=== PATIENT | female | born 1980 | race Caucasian/White ===

== ENCOUNTER 2016-09-12 19:18 | Emergency (ER) | payer MEDICAID ==
[~2016-09-12] VITALS: Ht 157.5 cm; Wt 76.5 kg
[~2016-09-12 19:18] MED LIST: DENIES; [UNRECOGNIZED DRUG - REMARK]
[2016-09-12 19:30] VITALS: Ht 157.5 cm; Wt 76.5 kg
--- NOTE | 2016-09-12 20:47 | RADRPT ---
PROCEDURE: US Lower extremity Venous. CLINICAL INDICATION: bilateral leg swelling TECHNIQUE: Multiple sonographic images of the bilateral lower extremity deep venous system was obt ained utilizing grayscale, color-flow, compressive sonography and doppler imaging with augmentation. The images were reviewed on a PACS workstation. COMPARISON: None. FINDINGS: There is normal compressibility and flow within the bilateral common femoral, deep femoral, superfic ial femoral and popliteal veins. The deep veins the calf were incompletely visualized. IMPRESSION: No sonographic evidence for deep venous thrombosis in the bilateral lower extremities. Physician Lay Date Time Electronically viewed and signed by Physician Lay on 09/12/2016 20:47 ML/
[2016-09-12 21:17] LABS: ADD UMIC YES; URINE BILIRUBIN (Dip) NEGATIVE (NEGATIVE); URINE BLOOD (Dip) 1+ (NEGATIVE); URINE COLOR LT. YELLOW (YELLOW); URINE GLUCOSE (Dip) >=1000 % (NEGATIVE); URINE KETONES (Dip) NEGATIVE (NEGATIVE); URINE LEUKOCYTE ESTERASE (Dip) NEGATIVE (NEGATIVE); URINE NITRITE (Dip) NEGATIVE (NEGATIVE); URINE TOTAL PROTEIN (Dip) 2+ (NEGATIVE); URINE UROBILINOGEN (Dip) 0.2 E.U./dL (0.1-1.0)
[2016-09-12 21:18] LABS: ADD SCAN DIFF NO
[2016-09-12 21:20] LABS: BASOPHIL # 0.1 10^3/ul (0.0-0.1); BASOPHILS % 0.5 % (0.0-2.0); EOSINOPHILS # 0.2 10^3/ul (0.0-0.5); EOSINOPHILS % 2.3 % (0.0-7.0); HEMATOCRIT 32.5 % (37.0-47.0); HEMOGLOBIN 11.2 g/dl (12.0-16.0); LYMPHOCYTES # 2.1 10^3/ul (0.8-2.9); LYMPHOCYTES % 20.1 % (15.0-51.0); MEAN CORPUSCULAR HEMOGLOBIN 30.1 pg (29.0-33.0); MEAN CORPUSCULAR HGB CONC 34.5 g/dl (32.0-37.0); MEAN CORPUSCULAR VOLUME 87.4 fl (82.0-101.0); MEAN PLATELET VOLUME 10.9 fl (7.4-10.4); MONOCYTE # 0.6 10^3/ul (0.3-0.9); MONOCYTES % 5.9 % (0.0-11.0); NEUTROPHIL # 7.5 10^3/ul (1.6-7.5); NEUTROPHILS % 70.9 % (39.0-77.0); PLATELET COUNT 355 10^3/UL (140-415); RED BLOOD COUNT 3.72 10^6/ul (4.20-5.40); WHITE BLOOD COUNT 10.6 10^3/ul (4.8-10.8)
[2016-09-12 21:32] LABS: BACTERIA,URINE FEW; SQUAMOUS EPITHELIAL CELL,UR FEW; URINE RBCS 0-2 /HPF (0)
[2016-09-12 21:45] LABS: CALCIUM 8.5 mg/dl (8.4-10.2); CREATININE 1.59 mg/dl (0.44-1.00); POTASSIUM 4.4 mmol/L (3.5-5.1)
[2016-09-12] MEDS ORDERED: ACETAMINOPHEN 500 MG TAB PO STA (22:11)
[2016-09-12] MEDS ORDERED: AZITHROMYCIN 250 MG TAB PO ONE (23:00)
[2016-09-12] MEDS ORDERED: CEFTRIAXONE 250 MG INJ IM ONE (23:00)
[2016-09-12] MEDS ORDERED: LIDOCAINE 1% (MDV) 20 ML INJ SC ONE (23:00)
[2016-09-12] MEDS ORDERED: ACET500C5 PO (23:21)
[2016-09-13 00:08] VITALS: BP 128/72; PULSE 88; RESP 16
--- NOTE | 2016-09-13 03:29 | ERD ---
ER Documentation Chief Complaint Date/Time DATE: 09/13/16 TIME: 03:23 Chief Complaint PAIN AND SWELLING IN BOTH LEGS/FEET X 3 WEEKS. FOUL VAG ODOR HPI Patient is a 35-year-old female with a past medical history of diabetes who presents the emergency department bilateral lower leg pain and swelling 3 weeks. 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 Patient denies any recent falls or trauma. Patient denies any recent travel, recent surgeries or OCP use. Patient denies any fevers, chills, chest pain, shortness of breath, nausea, vomiting or loss of consciousness. She also reports concerns of foul vaginal odor and discharge. Patient states her last 3 weeks she has had increased yellow discharge. Patient is unsure if she was exposed to any STDs. Patient states that she is unsure of her is currently sexually active with other individuals. Patient is requesting to be treated for STDs at this time. Patient denies any pelvic pain or vaginal bleeding. Last menstrual period was . ROS All systems reviewed and are negative except as per history of present illness. Medications Home Meds Active Scripts Acetaminophen* (Tylophen*) 500 Mg Capsule, 1 CAP PO Q6H Y for PAIN AND OR ELEVATED TEMP, #20 CAP Prov:DEBBY TOVAR PA-C 09/12/16 Reported Medications [Denies] No Conflict Check 05/15/12 [Unknown Dm Meds] No Conflict Check 06/17/10 Allergies Allergies: Coded Allergies: No Known Drug Allergies (Verified Allergy, Mild, 05/15/12) PMhx/Soc History of Surgery: No Anesthesia Reaction: No Hx Neurological Disorder: No Hx Respiratory Disorders: No Hx Cardiac Disorders: No Hx Psychiatric Problems: No Hx Miscellaneous Medical Probl: Yes (dm) Hx Alcohol Use: No Hx Substance Use: No Hx Tobacco Use: No Smoking Status: Never smoker Physical Exam Vitals Vital Signs Date Time Temp Pulse Resp B/P Pulse Ox O2 Delivery O2 Flow Rate FiO2 09/13/16 00:08 88 16 128/72 98 Room Air 09/12/16 19:30 96.8 108 18 127/72 98 Physical Exam GENERAL: Well-developed, well-nourished female. Appears in no acute distress. HEAD: Normocephalic, atraumatic. EYES: Pupils are equally reactive bilaterally. EOMs grossly intact. No conjunctival erythema. ENT: Moist mucous membranes. No uvula deviation. No kissing tonsils. NECK: Supple. No meningismus. Normal range of motion of the neck. LUNG: Clear to auscultation bilaterally. No rhonchi, wheezing, rales or coarse breath sounds. HEART: Regular rate and rhythm. No murmurs, rubs or gallops. ABDOMEN: No scars, ecchymosis or rashes noted. Soft, nontender, and nondistended. Positive bowel sounds in all four quadrants. No rebound tenderness , no guarding. (-) McBurney's point tenderness. No CVA tenderness. BACK: No midline tenderness. EXTREMITIES: Equal pulses bilaterally. No peripheral clubbing, cyanosis or edema. 1+ pitting edema noted on bilateral lower extremities. Venous discolorations on patient's bilateral lower extremities. Right 2nd toe amputated. NEUROLOGIC: Alert and oriented. Moving all four extremities without any difficulty. Normal speech. Steady gait. SKIN: Normal color. Warm and dry. No rashes or lesions. s. Result Diagram: 09/12/16210909/12/162109 Results 24 hrs Laboratory Tests Test 09/12/16 20:55 09/12/16 21:00 09/12/16 21:10 Urine Color LT. YELLOW Urine Clarity CLEAR Urine pH 6.0 Urine Specific [place] 1.010 Urine Ketones NEGATIVE Urine Nitrite NEGATIVE Urine Bilirubin NEGATIVE Urine Urobilinogen 0.2 E.U./dL Urine Leukocyte Esterase NEGATIVE Urine Microscopic RBC 0-2/HPF Urine Microscopic WBC 0-2/HPF Urine Squamous Epithelial Cells FEW Urine Bacteria FEW Urine Hemoglobin 1+ Urine Glucose >=1000% Urine Total Protein 2+ Bedside Glucose 399mg/dL White Blood Count 10.610^3/ul Red Blood Count 3.7210^6/ul Hemoglobin 11.2g/dl Hematocrit 32.5% Mean Corpuscular Volume 87.4fl Mean Corpuscular Hemoglobin 30.1pg Mean Corpuscular Hemoglobin Concent 34.5g/dl Red Cell Distribution Width 13.0% Platelet Count 75981^3/UL Mean Platelet Volume 10.9fl Neutrophils % 70.9% Lymphocytes % 20.1% Monocytes % 5.9% Eosinophils % 2.3% Basophils % 0.5% Nucleated Red Blood Cells % 0.0/100WBC Neutrophils # 7.510^3/ul Lymphocytes # 2.110^3/ul Monocytes # 0.610^3/ul Eosinophils # 0.210^3/ul Basophils # 0.110^3/ul Nucleated Red Blood Cells # 0.010^3/ul Sodium Level 135mmol/L Potassium Level 4.4mmol/L Chloride Level 102mmol/L Carbon Dioxide Level 27mmol/L Anion Gap 10 Blood Urea Nitrogen 23mg/dl Creatinine 1.59mg/dl Glucose Level 399mg/dl Calcium Level 8.5mg/dl B-Type Natriuretic Peptide 168PG/ML Current Medications Medications (Trade) Dose Ordered Sig/Jaime Route PRN Reason Start Time Stop Time Status Last Admin Dose Admin Acetaminophen (Tylenol Tab) 500 mg ONCE STAT PO 09/12/16 22:11 09/12/16 22:12 DC 09/12/16 22:16 Ceftriaxone Sodium (Rocephin) 250 mg ONCE ONCE IM 09/12/16 23:00 09/12/16 23:01 DC 09/12/16 23:11 Lidocaine (Xylocaine 1% (Mdv) 20 ml) 20 ml ONCE ONCE SC 09/12/16 23:00 09/12/16 23:01 DC 09/12/16 23:11 Azithromycin (Zithromax) 1,000 mg ONCE ONCE PO 09/12/16 23:00 09/12/16 23:01 DC 09/12/16 23:11 Procedures/MDM ED COURSE: The patient was stable throughout ED course. I kept the patient and/or family informed of laboratory and diagnostic imaging results throughout the ED course. DIAGNOSTIC IMAGING: Read by radiologist. DIAGNOSTIC IMAGING REPORT Patient: OLIVIER CASON : 1980 Age: 35 Sex: F MR #: [id number] DOS: 09/12/162016 Ordering MD: DEBBY TOVAR PA-C Location: [facility] Room/Bed: PROCEDURE: US Lower extremity Venous. CLINICAL INDICATION: bilateral leg swelling TECHNIQUE: Multiple sonographic images of the bilateral lower extremity deep venous system was obtained utilizing grayscale, color-flow, compressive sonography and doppler imaging with augmentation. The images were reviewed on a PACS workstation. COMPARISON: None. FINDINGS: There is normal compressibility and flow within the bilateral common femoral, deep femoral, superficial femoral and popliteal veins. The deep veins the calf were incompletely visualized. IMPRESSION: No sonographic evidence for deep venous thrombosis in the bilateral lower extremities. Physician Lay Date Time Electronically viewed and signed by Physician Lay on 09/12/2016 20 :47 ML/ CC: DEBBY TOVAR PA-C MEDICATIONS GIVEN: Tylenol, Rocephin, Azithromycin Patient tolerated medication well with no adverse reactions. Patient reported improvement in pain. MEDICAL DECISION MAKING: Patient is a 35-year-old female presents bilateral lower extremity swelling and concerns of increased vaginal discharge and odor.. Vital signs were reviewed. Patient is afebrile. Patient was not hypoxic. Patient was hemodynamically stable. CBC showed no evidence of systemic infection or severe anemia. BMP showed glucose of 399. Patient did not have an anion gap, no ketones noted in urine. Patient is not in DKA at this time time. Patients Cr noted to 1.59 and BUN noted to be 23. BNP was also elevated at 168. UA showed no evidence of acute infection or hematuria, however >1000 glucose noted. Doppler US was negative for bilateral DVT. I discussed the patients lab findings with my supervising physician, Dr. Wolff. Patients elevated Cr and BUN, likely due to poorly controlled diabetes. Patient does not require admission at this time for acute kidney injury given that patient is producing urine and has a history of DM. At this time, patients presentation is most consistent with kidney injury, leg swelling and concerns of STD exposure. Low suspicion for CHF, DVT, PE, DKA, HONK. Patient will also be empirically treated for STDs at this time. Low suspicion for , ectopic , PID or tuboovarian abscess at this time. PRESCRIPTION: Tylenol DISCHARGE: At this time, patient is stable for discharge and outpatient management. Patient given a copy of all imaging and blood work obtained today. Patient advised to follow up with her PCP for better management of her blood sugars and for possible adjustment to her medication. I have instructed the patient to follow-up with his/her primary care physician in 1-2 days. I have discussed with the patient the possibility of needing to see a specialist for further workup and imaging studies if symptoms persist. I have instructed the patient to promptly return to the ER for any new or worsening symptoms including increased pain, fever, nausea, vomiting, weakness or LOC. The patient and/or family expressed understanding of and agreement with this plan. All questions were answered. Home care instructions were provided. Patients random blood sugar level was elevated (>140), but appears stable without evidence of DKA or end organ failure. I had discussion with the patient about the risk of diabetes. I have advised the patient to follow up with his/her primary care physician for outpatient monitoring and treatment for elevated blood sugar levels in 2-3 days. I have instructed the patient to return to the ER for any new or worsening symptoms including chest pain, shortness of breath, headache, confusion, abdominal pain, nausea, vomiting, weakness or LOC. Departure Diagnosis: Primary Impression: Localized swelling of both lower legs Additional Impressions: Possible exposure to STD Kidney injury Poor compliance with medication Condition: Stable Patient Instructions: Diabetes and Kidney Disease Referrals: TONO SMART (PCP) Additional Instructions: Call your primary care doctor TOMORROW for an appointment during the next 1-2 days.See the doctor sooner or return here if your condition worsens before your appointment time. Follow up with her primary care physician for your leg swelling. Follow-up with your primary care physician for better management of your diabetes and kidney function. Advise your to get tested for STDs. DEBBY TOVAR PA-C Sep 13, 2016 03:29
== END 2016-09-13 00:09 | disposition home or self-care (01) ==
LOC: FTE 19:18
DX: M79.89 Other specified soft tissue disorders (principal); N17.9 Acute kidney failure, unspecified; E11.9 Type 2 diabetes mellitus without complications; Z91.14 Patient's other noncompliance with medication regimen
CPT/HCPCS: 36415; 80048; 81001; 82962; 83880; 85025; 87591; 93970; 96372; J0696; Z7502; Z7610

== ENCOUNTER 2017-01-01 20:34 | Inpatient (IN) | payer MEDICAID ==
[~2017-01-01] VITALS: Ht 160 cm; Wt 75.8 kg
[~2017-01-01 20:34] MED LIST changes: +ACET500C5 PO
--- NOTE | 2017-01-01 21:14 | ERD ---
ER Documentation Chief Complaint Date/Time DATE: 01/01/17 TIME: 21:13 Chief Complaint BILAT FOOT PAIN, VERY DIRTY W/OUT SHOES, ARGUMENT WITH SPOUSE, ANXIETY HPI 2 day hx low abd pain, w/o n/v or fever or dysuria, denies back pain , pt reports chills, HX of DM ROS All systems reviewed and are negative except as per history of present illness. Medications Home Meds Active Scripts Acetaminophen* (Tylophen*) 500 Mg Capsule, 1 CAP PO Q6H Y for PAIN AND OR ELEVATED TEMP, #20 CAP Prov:DEBBY TOVAR PA-C 09/12/16 Reported Medications [Denies] No Conflict Check 05/15/12 [Unknown Dm Meds] No Conflict Check 06/17/10 Allergies Allergies: Coded Allergies: No Known Drug Allergies (Verified Allergy, Mild, 05/15/12) PMhx/Soc History of Surgery: Yes (Thigh Surgery,) Anesthesia Reaction: No Hx Neurological Disorder: Yes (Neuropathy) Hx Respiratory Disorders: No Hx Cardiac Disorders: Yes (HTN) Hx Psychiatric Problems: No Hx Miscellaneous Medical Probl: Yes (DM) Hx Alcohol Use: No Hx Substance Use: No Hx Tobacco Use: No Smoking Status: Never smoker Physical Exam Vitals Vital Signs Date Time Temp Pulse Resp B/P Pulse Ox O2 Delivery O2 Flow Rate FiO2 01/01/17 20:37 97.6 100 18 171/97 100 Physical Exam Const: [] Head: Atraumatic Eyes: Normal Conjunctiva ENT: Normal External Ears, Nose and Mouth. Neck: Full range of motion..~ No meningismus. Resp: Clear to auscultation bilaterally Cardio: Regular rate and rhythm, no murmurs Abd: Soft, non tender, non distended. Normal bowel sounds Skin: No petechiae or rashes Back: No midline or flank tenderness Ext: No cyanosis, or edema Neur: Awake and alert Psych: Normal Mood and Affect Result Diagram: 01/01/17212901/01/172129 Results 24 hrs Laboratory Tests Test 01/01/17 21:30 White Blood Count 9.310^3/ul Red Blood Count 4.2710^6/ul Hemoglobin 12.8g/dl Hematocrit 38.5% Mean Corpuscular Volume 90.2fl Mean Corpuscular Hemoglobin 30.0pg Mean Corpuscular Hemoglobin Concent 33.2g/dl Red Cell Distribution Width 14.9% Platelet Count 29237^3/UL Mean Platelet Volume 11.1fl Neutrophils % 62.0% Lymphocytes % 28.5% Monocytes % 6.2% Eosinophils % 2.3% Basophils % 0.5% Nucleated Red Blood Cells % 0.0/100WBC Neutrophils # 5.810^3/ul Lymphocytes # 2.710^3/ul Monocytes # 0.610^3/ul Eosinophils # 0.210^3/ul Basophils # 0.110^3/ul Nucleated Red Blood Cells # 0.010^3/ul Urine Color COLORLESS Urine Clarity CLEAR Urine pH 7.0 Urine Specific [place] 1.012 Urine Ketones NEGATIVEmg/dL Urine Nitrite NEGATIVEmg/dL Urine Bilirubin NEGATIVEmg/dL Urine Urobilinogen NEGATIVEmg/dL Urine Leukocyte Esterase NEGATIVELeu/ul Urine Microscopic RBC 6/HPF Urine Microscopic WBC 2/HPF Urine Squamous Epithelial Cells FEW/HPF Urine Hemoglobin 1+mg/dL Urine Glucose 3+mg/dL Urine Total Protein 2+mg/dl Sodium Level 135mmol/L Potassium Level 4.4mmol/L Chloride Level 104mmol/L Carbon Dioxide Level 23mmol/L Anion Gap 12 Blood Urea Nitrogen 20mg/dl Creatinine 0.96mg/dl Glucose Level 325mg/dl Calcium Level 8.6mg/dl Total Bilirubin 0.1mg/dl Direct Bilirubin 0.00mg/dl Indirect Bilirubin 0.1mg/dl Aspartate Amino Transf (AST/SGOT) 31IU/L Alanine Aminotransferase (ALT/SGPT) 16IU/L Alkaline Phosphatase 143IU/L Total Protein 8.0g/dl Albumin 3.7g/dl Globulin 4.30g/dl Albumin/Globulin Ratio 0.86 Lipase 185U/L Current Medications Medications (Trade) Dose Ordered Sig/Jaime Route PRN Reason Start Time Stop Time Status Last Admin Dose Admin Sodium Chloride (NS) 1,000 ml @ 1,000 mls/hr Q1H ONCE IV 01/01/17 21:30 01/01/17 22:29 DC 01/01/17 21:29 Acetaminophen/ Hydrocodone Bitart (Boelus (5/325)) 1 tab ONCE ONCE PO 01/01/17 21:30 01/01/17 21:31 DC 01/01/17 21:28 Morphine Sulfate (morphine) 4 mg ONCE STAT IV 01/01/17 23:01 01/01/17 23:02 UNV Procedures/MDM PROCEDURE: CT ABDOMEN AND PELVIS WITHOUT CONTRAST: CLINICAL INDICATION: 36 years of age, female , abdominal pain. COMPARISON: None available. TECHNIQUE: CT of the abdomen and pelvis was performed without intravenous contrast. Oral contrast was not administered prior to the examination. Coronal and sagittal reformatted images were obtained from the axial source images. Images were reviewed on a high-resolution PACS workstation. Dose information: Based on a 32 cm phantom, the estimated radiation dose ( CTDIvol mGy) for each series in this exam is 12.3. The estimated cumulative dose (DLP mGy-cm) is 726. One or more of the following dose reduction techniques were used: - Automated exposure control. - Adjustment of the mA and/or kV according to patient size. - Use of iterative reconstruction technique. FINDINGS: In the absence of intravenous contrast, the study constitutes a limited assessment of the solid organs, bowel and vessels. LUNG BASES: Normal noncontrast appearance. ABDOMEN/PELVIS: Liver: Normal noncontrast appearance. Gallbladder: Normal noncontrast appearance. Bile ducts: No intrahepatic or extrahepatic biliary duct dilatation. Spleen: Normal noncontrast appearance. Pancreas: Normal noncontrast appearance. Adrenal glands: Normal noncontrast appearance. Kidneys and ureters: Kidneys are normal size. There is mild bilateral hydronephrosis and hydroureter. Negative for ureteral calculi. Aorta and IVC: Minimal atherosclerotic calcification aorta. Negative for abdominal aortic aneurysm. There are grafts in bilateral common femoral arteries. There is a right femoral bypass graft that is incompletely imaged. There is also a graft in the right superficial femoral artery. There is a graft in the left superficial femoral artery that is incompletely imaged. This graft is kinked at its origin with focal narrowing. There is postsurgical stranding in the left greater than right groins. Lymph nodes: Normal noncontrast appearance. Gastrointestinal tract: The stomach is moderately distended with semisolid material that may be from a recent meal. There is a large amount of formed stool in the entire colon with sparing of the sigmoid colon and rectum. Bowel loops are otherwise decompressed. Appendix: Normal Bladder: Bladder is partially filled. There is mild wall thickening and there is intraluminal gas that may be due to recent catheterization or infection. Pelvic Organs: The uterus and adnexa are unremarkable. Prominence of the left adnexa is within normal limits in a patient of this age. Peritoneal cavity: No free fluid or free intraperitoneal air. Abdominal wall: Small fat containing umbilical hernia. BONES: Musculoskeletal: No suspicious bone lesions. IMPRESSION: 1. Gas within the urinary bladder may be from recent catheterization. Recommend clinical correlation. In the absence of instrumentation, gas would be concerning for infection. There is thickening of the wall of the urinary bladder. Recommend correlation with urinalysis to evaluate for potential cystitis. 2. Nonspecific mild bilateral hydronephrosis and hydroureter without an obstructing calculus. Recommend correlation with renal function. 3. Large amount of formed stool in the colon with sparing of the rectum and sigmoid colon may indicate constipation. 4. Stomach is distended with semisolid material that may be from a recent meal. If there is concern for gastroparesis, suggestive of a nuclear medicine emptying study. 5. Vascular surgery in bilateral lower extremities with grafts as described. There is focal kinking of the origin of the left superficial femoral artery graft with stenosis. Recommend clinical correlation for signs of left leg claudication. Electronically viewed and signed by Filippo Vazquez Physician on 01/01/2017 22: 30 36-year-old [place]ian-speaking female presents to emergency department with 2 day history of low pelvic pain. Patient is a diabetic, denies nausea, vomiting, fever, patient it is cold chills, and physical exam patient has right lower, pelvic, and left lower quadrant tenderness. Left CVA tenderness with a normal heart rate and temperature. Emergency room course includes a liter of normal saline laboratory testing and a CAT scan of abdomen and pelvis without contrast. Laboratory findings as follow, no leukocytosis or evidence of acute blood loss or anemia. BUN and creatinine without evidence of acute renal failure, no evidence of hepatitis or pancreatitis, glucose elevated at 325. Urinalysis with elevated protein, glucose, and hemoglobin, negative for nitrates , and leukocytosis, urine will be sent for culture and sensitivity, CAT scan with radiologist's impression as follows; gas within the urinary bladder which may be from recent catheterization recommended clinical correction in the absence of instrumentation. Gas will be concerning for infection there is thickening of the wall of the urinary bladder recommended correction with urinalysis to evaluate for potential cystitis. Nonspecific mild bilateral hydronephrosis and hydroureter without obstructing calculi recommended clinical correction with renal function. Large amount of formed stool in the colon was sparing of rectum and sigmoid colon may indicate constipation. Stomach is distended with semisoft material that may be from recent male if there is concern for gastroparesis suggestive of nuclear medicine emptying study. Vascular surgery and bilateral lower extremities with grafts as described. The focal unit of the origin of left superficial femoral artery graft with stenosis recommend clinical recollections for signs of left leg claudication. This case discussed with supervising physician Dr. Ferro. Home after performing physical exam recommend urology consult. Urologist on-call is Dr. Ordonez [phone]. By myself spoke to Dr. Ordonez who gas that gases from a E- coli infection recommends catheterization, admission, and IV antibiotics. Patient receives additional are of normal saline, 1 g of Rocephin, 500 mg of Flagyl, 4 mg of intravenous morphine for pain 8/10 on pain scale and Alvarado catheter insertion by registered nurse. Patient will be admitted, for further antibiotic treatment and evaluation, Dr. Ordonez to consult, calls admitting addition. All care maintained in emergency department until patient is transferred to the floor.. Departure Diagnosis: Primary Impression: Urinary bladder disorder VICKY VAZQUEZ Jan 01, 2017 21:14
[2017-01-01] MEDS ORDERED: SOD CHLORIDE 0.9% 1,000 ML IV ONE ×2 (21:30→23:30)
[2017-01-01] MEDS ORDERED: HYDROCODONE/APAP (5/325) TAB PO ONE (21:30)
[2017-01-01 21:50] LABS: BASOPHIL # 0.1 10^3/ul (0.0-0.1); BASOPHILS % 0.5 % (0.0-2.0); EOSINOPHILS # 0.2 10^3/ul (0.0-0.5); EOSINOPHILS % 2.3 % (0.0-7.0); HEMATOCRIT 38.5 % (37.0-47.0); HEMOGLOBIN 12.8 g/dl (12.0-16.0); LYMPHOCYTES # 2.7 10^3/ul (0.8-2.9); LYMPHOCYTES % 28.5 % (15.0-51.0); MEAN CORPUSCULAR HGB CONC 33.2 g/dl (32.0-37.0); MEAN CORPUSCULAR VOLUME 90.2 fl (82.0-101.0); MEAN PLATELET VOLUME 11.1 fl (7.4-10.4); MONOCYTE # 0.6 10^3/ul (0.3-0.9); MONOCYTES % 6.2 % (0.0-11.0); NEUTROPHIL # 5.8 10^3/ul (1.6-7.5); PLATELET COUNT 388 10^3/UL (140-415); RED BLOOD COUNT 4.27 10^6/ul (4.20-5.40); RED CELL DISTRIBUTION WIDTH 14.9 % (11.5-14.5); WHITE BLOOD COUNT 9.3 10^3/ul (4.8-10.8)
[2017-01-01 21:55] LABS: ADD UMIC YES; UR ASCORBIC ACID NEGATIVE (NEGATIVE); UR BILIRUBIN (Dip) NEGATIVE (NEGATIVE); UR BLOOD (Dip) 1+ mg/dL (NEGATIVE); UR CLARITY CLEAR (CLEAR); UR COLOR COLORLESS (YELLOW); UR GLUCOSE (Dip) 3+ mg/dL (NEGATIVE); UR KETONES (Dip) NEGATIVE (NEGATIVE); UR LEUKOCYTE ESTERASE (Dip) NEGATIVE Leu/ul (NEGATIVE); UR NITRITE (Dip) NEGATIVE (NEGATIVE); UR RBC 6 /HPF (0-5); UR SPECIFIC GRAVITY (Dip) 1.012 (1.003-1.030); UR SQUAMOUS EPITHELIAL CELL FEW /HPF (FEW); UR TOTAL PROTEIN (Dip) 2+ mg/dl (NEGATIVE); UR UROBILINOGEN (Dip) NEGATIVE (NEGATIVE)
[2017-01-01 22:05] LABS: ALBUMIN 3.7 g/dl (3.3-4.9); ALBUMIN/GLOBULIN RATIO 0.86; BILIRUBIN,INDIRECT 0.1 mg/dl (0-1.1); BILIRUBIN,TOTAL 0.1 mg/dl (0.2-1.3); CALCIUM 8.6 mg/dl (8.4-10.2); CREATININE 0.96 mg/dl (0.44-1.00); POTASSIUM 4.4 mmol/L (3.5-5.1)
--- NOTE | 2017-01-01 22:30 | RADRPT ---
PROCEDURE: CT ABDOMEN AND PELVIS WITHOUT CONTRAST: CLINICAL INDICATION: 36 years of age, female , abdominal pain. COMPARISON: None available. TECHNIQUE: CT of the abdomen and pelvis was performed without intravenous contrast. Oral contrast wa s not administered prior to the examination. Coronal and sagittal reformatted images were obtained from the axial source images. Images were revi ewed on a high-resolution PACS workstation. Dose information: Based on a 32 cm phantom, the estimated radiation dose (CTDIvol mGy) for each seri es in this exam is 12.3. The estimated cumulative dose (DLP mGy-cm) is 726. One or more of the following dose reduction techniques were used: - Automated exposure control. - Adjustment of the mA and/or kV according to patient size. - Use of iterative reconstruction technique. FINDINGS: In the absence of intravenous contrast, the study constitutes a limited assessment of the solid orga ns, bowel and vessels. LUNG BASES: Normal noncontrast appearance. ABDOMEN/PELVIS: Liver: Normal noncontrast appearance. Gallbladder: Normal noncontrast appearance. Bile ducts: No intrahepatic or extrahepatic biliary duct dilatation. Spleen: Normal noncontrast appearance. Pancreas: Normal noncontrast appearance. Adrenal glands: Normal noncontrast appearance. Kidneys and ureters: Kidneys are normal size. There is mild bilateral hydronephrosis and hydroureter . Negative for ureteral calculi. Aorta and IVC: Minimal atherosclerotic calcification aorta. Negative for abdominal aortic aneurysm. There are grafts in bilateral common femoral arteries. There is a right femoral bypass graft that is incompletely imaged. There is also a graft in the right superficial femoral artery. There is a wili t in the left superficial femoral artery that is incompletely imaged. This graft is kinked at its or igin with focal narrowing. There is postsurgical stranding in the left greater than right groins. Lymph nodes: Normal noncontrast appearance. Gastrointestinal tract: The stomach is moderately distended with semisolid material that may be from a recent meal. There is a large amount of formed stool in the entire colon with sparing of the sigm oid colon and rectum. Bowel loops are otherwise decompressed. Appendix: Normal Bladder: Bladder is partially filled. There is mild wall thickening and there is intraluminal gas th at may be due to recent catheterization or infection. Pelvic Organs: The uterus and adnexa are unremarkable. Prominence of the left adnexa is within juan l limits in a patient of this age. Peritoneal cavity: No free fluid or free intraperitoneal air. Abdominal wall: Small fat containing umbilical hernia. BONES: Musculoskeletal: No suspicious bone lesions. IMPRESSION: 1. Gas within the urinary bladder may be from recent catheterization. Recommend clinical correlatio n. In the absence of instrumentation, gas would be concerning for infection. There is thickening of the wall of the urinary bladder. Recommend correlation with urinalysis to evaluate for potential cys titis. 2. Nonspecific mild bilateral hydronephrosis and hydroureter without an obstructing calculus. Recom mend correlation with renal function. 3. Large amount of formed stool in the colon with sparing of the rectum and sigmoid colon may indic ate constipation. 4. Stomach is distended with semisolid material that may be from a recent meal. If there is concern for gastroparesis, suggestive of a nuclear medicine emptying study. 5. Vascular surgery in bilateral lower extremities with grafts as described. There is focal kinking of the origin of the left superficial femoral artery graft with stenosis. Recommend clinical correl ation for signs of left leg claudication. RPTAT: HCTS Physician Joya Date Time Electronically viewed and signed by Physician Joya on 01/01/2017 22:30 CS/
[2017-01-01] MEDS ORDERED: morphine 4 MG/ML VIAL IV ONE (23:08)
[2017-01-01] MEDS ORDERED: metroNIDAZOLE 500 MG/NS (PMX) 100 ML IVPB ONE (23:30)
[2017-01-01] MEDS ORDERED: CEFTRIAXONE 1 GM/50 ML (PMX) 50 ML IVPB ONE (23:30)
[2017-01-02] VITALS (12 sets, daily range): BP systolic 129–190; BP diastolic 62–93; PULSE 75–104; RESP 18–19; TEMP 98.8; Ht 160 cm; Wt 75.8 kg
[2017-01-02] MEDS ORDERED: ONDANSETRON 4 MG INJ IV STA (00:23)
[2017-01-02] MEDS ORDERED: HYDROmorphONE 1 MG/ML SYG IV STA (00:23)
[2017-01-02] MEDS ORDERED: ONDANSETRON 4 MG INJ IV PRN (01:00)
[2017-01-02] MEDS ORDERED: ACETAMINOPHEN 325 MG TAB PO PRN ×2 (01:00→03:00)
[2017-01-02] MEDS ORDERED: NACL 0.9% 3 ML SYG IV SCH (03:00)
[2017-01-02] MEDS: HYDROmorphONE 1 MG/ML SYG IV PRN ×5 (03:09→23:21)
[2017-01-02] MEDS ORDERED: GLUCOSE GEL 15 GRAM TUBE PO PRN ×2 (03:30)
[2017-01-02] MEDS ORDERED: GLUCAGON 1 MG INJ IM PRN (03:30)
[2017-01-02] MEDS ORDERED: GLUCOSE GEL 15 GRAM TUBE BUCCAL PRN (03:30)
[2017-01-02] MEDS ORDERED: DEXTROSE 50% 50 ML SYRINGE IV PRN ×2 (03:30)
--- NOTE | 2017-01-02 08:44 | HP ---
Date/Time of Note Date/Time of Note DATE: 01/02/17 TIME: 08:31 Assessment/Plan VTE Prophylaxis VTE Prophylaxis Intervention: SCD's Lines/Catheters IV [facility]from [facility] Saline Lock Urinary Cath still in place: Yes Reason Cath still needed: other (indicate) (gas in urinary bladder/infection) Assessment/Plan Chief Complaint/Hosp Course This is a 36-year-old female is beginning admitted to the [facility] floor for: #1 Suprapubic pain: gas within the urinary bladder, Concern for underlying infection. UA is negative for UTI. At the current time will start the patient on IV antibiotics. Will obtain urology consult. Patient has a history of diabetes which could be concerning for underlying infection. #2 bilateral hydronephrosis: Creatinine is within normal values at this time. Will continue IV fluid hydration. Urology on consult. #3 peripheral vascular disease: Patient reports symptoms of claudication. There is a left kink noted on the graft in the left lower extremity. Will obtain a consult with vascular surgery. #4: Retained stool: constipation versus gastroparesis: At the current time we will treat patient with bowel regimen. #5 DVT prophylaxis: SCDs, acid kevan Further treatment strategy as per the clinical course Problems: HPI/ROS Admit Date/Time Admit Date/Time Jan 02, 2017 at 00:32 Hx of Present Illness 6-year-old [place]ut[place]-speaking female presents to emergency department with 2 day history of low pelvic pain. Patient is a diabetic, denies nausea, vomiting, fever, patient it is cold chills, and physical exam patient has right lower, pelvic, and suprapubic tenderness. She denies any dysuria or urinary frequency or urinary urgency. Of note patient also reports that she has bilateral lower extremity pain when she walks. Allergies: NKDA Medications: See Jun Const: As per HPI Eyes : No pain discharge or redness or change in visual acuity ENT: No pain, sore throat, congestion, congestion, dysphagia or discharge Respiratory: No shortness of breath, cough, sputum, wheezing, or pleuritic pain Cardiovascular: No chest pain, palpitation, PND, or edema GI : As per HPI Genitourinary: As per HPI Musculoskeletal: No joint pain, back pain, neck pain, restricted range of motion in neck or joints Skin: No rash, bruising or hives Neuro: No headache, dizziness, syncope, seizure, focal weakness Endocrine: No polyuria, polydipsia, temperature intolerance Psych: No hallucination, depression, anxiety or suicidal ideation PMH/Family/Social Past Medical History Diabetes mellitus, peripheral vascular disease Past Surgical History Bilateral lower extremity graft for peripheral vascular disease, 3 Family History Significant Family History: diabetes Social History Alcohol Use: none Smoking Status: Never smoker Drug Use: none Exam/Review of Systems Vital Signs Vitals Vital Signs Date Time Temp Pulse Resp B/P Pulse Ox O2 Delivery O2 Flow Rate FiO2 01/02/17 07:48 97.8 94 19 156/81 99 01/02/17 03:30 Room Air Intake and Output 01/01/17 01/01/17 01/02/17 15:00 23:00 07:00 Intake Total 720 ml Output Total 800 ml Balance -80 ml Exam Exam General: Patient is a obese female lying in bed in mild distress from pain HEENT: Atraumatic, normocephalic. The pupils are equal, round and reactive. Extraocular motor are intact Neck: Supple with full range of motion. No rigidity or meningismus Chest: Nontender Lungs: Clear to auscultation bilaterally no crackles rales or wheezing Heart: Normal S1-S2, Regular rhythm and rate. No murmur, S3, or S4 Abdomen: Soft, tenderness to palpation over the suprapubic area, nondistended, Extremities: 1+ distal pulses bilaterally, and dirty feet Neurologic: Normal mental status, speech normal, cranial nerves II through XII are intact, motor and sensory are intact, no focal weakness Additional Comments PROCEDURE: CT ABDOMEN AND PELVIS WITHOUT CONTRAST: CLINICAL INDICATION: 36 years of age, female , abdominal pain. COMPARISON: None available. TECHNIQUE: CT of the abdomen and pelvis was performed without intravenous contrast. Oral contrast was not administered prior to the examination. Coronal and sagittal reformatted images were obtained from the axial source images. Images were reviewed on a high-resolution PACS workstation. Dose information: Based on a 32 cm phantom, the estimated radiation dose ( CTDIvol mGy) for each series in this exam is 12.3. The estimated cumulative dose (DLP mGy-cm) is 726. One or more of the following dose reduction techniques were used: - Automated exposure control. - Adjustment of the mA and/or kV according to patient size. - Use of iterative reconstruction technique. FINDINGS: In the absence of intravenous contrast, the study constitutes a limited assessment of the solid organs, bowel and vessels. LUNG BASES: Normal noncontrast appearance. ABDOMEN/PELVIS: Liver: Normal noncontrast appearance. Gallbladder: Normal noncontrast appearance. Bile ducts: No intrahepatic or extrahepatic biliary duct dilatation. Spleen: Normal noncontrast appearance. Pancreas: Normal noncontrast appearance. Adrenal glands: Normal noncontrast appearance. Kidneys and ureters: Kidneys are normal size. There is mild bilateral hydronephrosis and hydroureter. Negative for ureteral calculi. Aorta and IVC: Minimal atherosclerotic calcification aorta. Negative for abdominal aortic aneurysm. There are grafts in bilateral common femoral arteries. There is a right femoral bypass graft that is incompletely imaged. There is also a graft in the right superficial femoral artery. There is a graft in the left superficial femoral artery that is incompletely imaged. This graft is kinked at its origin with focal narrowing. There is postsurgical stranding in the left greater than right groins. Lymph nodes: Normal noncontrast appearance. Gastrointestinal tract: The stomach is moderately distended with semisolid material that may be from a recent meal. There is a large amount of formed stool in the entire colon with sparing of the sigmoid colon and rectum. Bowel loops are otherwise decompressed. Appendix: Normal Bladder: Bladder is partially filled. There is mild wall thickening and there is intraluminal gas that may be due to recent catheterization or infection. Pelvic Organs: The uterus and adnexa are unremarkable. Prominence of the left adnexa is within normal limits in a patient of this age. Peritoneal cavity: No free fluid or free intraperitoneal air. Abdominal wall: Small fat containing umbilical hernia. BONES: Musculoskeletal: No suspicious bone lesions. IMPRESSION: 1. Gas within the urinary bladder may be from recent catheterization. Recommend clinical correlation. In the absence of instrumentation, gas would be concerning for infection. There is thickening of the wall of the urinary bladder. Recommend correlation with urinalysis to evaluate for potential cystitis. 2. Nonspecific mild bilateral hydronephrosis and hydroureter without an obstructing calculus. Recommend correlation with renal function. 3. Large amount of formed stool in the colon with sparing of the rectum and sigmoid colon may indicate constipation. 4. Stomach is distended with semisolid material that may be from a recent meal. If there is concern for gastroparesis, suggestive of a nuclear medicine emptying study. 5. Vascular surgery in bilateral lower extremities with grafts as described. There is focal kinking of the origin of the left superficial femoral artery graft with stenosis. Recommend clinical correlation for signs of left leg claudication. RPTAT: HCTS Filippo Vazquez Physician Date Time Electronically viewed and signed by Filippo Vazquez Physician on 01/01/2017 22: 30 CS/ CC: VICKY VAZQUEZ Labs Result Diagram: 01/01/17212901/01/172129 Medications Medications Current Medications Ondansetron HCl (Zofran Inj) 4 mg Q6H PRN IV NAUSEA AND/OR VOMITING; Start at 03:00 Acetaminophen (Tylenol Tab) 650 mg Q6H PRN PO PAIN LEVEL 1-3 OR FEVER; Start at 03:00 Hydromorphone HCl (Dilaudid) 1 mg Q4H PRN IV SEVERE PAIN LEVEL 7-10 Last administered on 01/02/17t 03:09; Admin Dose 1 MG; Start 01/02/17 at 03:00 Diagnostic Test (Pha) (Accu-Chek) 1 ea 02 XX ; Start 01/03/17 at 02:00 Diagnostic Test (Pha) (Accu-Chek) 1 ea 02 XX ; Start 01/03/17 at 02:00 Miscellaneous Information 1 ea NOTE XX ; Start 01/02/17 at 03:30 Glucose (Glutose) 15 gm Q15M PRN PO DECREASED GLUCOSE; Start 01/02/17 at 03:30 Glucose (Glutose) 22.5 gm Q15M PRN PO DECREASED GLUCOSE; Start 01/02/17 at 03: 30 Dextrose (D50w Syringe) 25 ml Q15M PRN IV DECREASED GLUCOSE; Start 01/02/17 at 03:30 Dextrose (D50w Syringe) 50 ml Q15M PRN IV DECREASED GLUCOSE; Start 01/02/17 at 03:30 Glucagon (Glucagen) 1 mg Q15M PRN IM DECREASED GLUCOSE; Start 01/02/17 at 03:30 Glucose (Glutose) 15 gm Q15M PRN BUCCAL DECREASED GLUCOSE; Start 01/02/17 at 03 :30 CHIARA LALA Jan 02, 2017 08:42
[2017-01-02] MEDS: INSULIN ASPART [NOVOLOG] 3 ML PEN SC SCH ×4 (08:52→21:00)
[2017-01-02] MEDS: metroNIDAZOLE 500 MG/NS (PMX) 100 ML IVPB SCH ×3 (09:57→21:54)
[2017-01-02] MEDS: ONDANSETRON 4 MG INJ IV PRN ×3 (09:57→23:20)
[2017-01-02] MEDS: LEVOFLOXACIN 750MG/D5W (PMX) 150 ML IVPB SCH (11:34)
--- NOTE | 2017-01-02 15:43 | PN ---
Date/Time of Note Date/Time of Note DATE: 01/02/17 TIME: 15:42 Assessment/Plan VTE Prophylaxis VTE Prophylaxis Intervention: ambulation Lines/Catheters IV Catheter Type (from Nrsg): Saline Lock Urinary Cath still in place: Yes Reason Cath still needed: other (indicate) Assessment/Plan Assessment/Plan 1. Suprapubic pain - CT abdomen showed gas within the urinary bladder which is concerning for underlying infection. - UA is negative for UTI. At the current time will start the patient on IV antibiotics - Urology consulted and awaiting recommendations - currently on antibiotics 2. bilateral hydronephrosis - Will continue to monitor - Renal function within normal limits - IV hydration 3. PVD - CT showed kink in LLE graft - Vascular surgery consulted 4. Constipation - Bowel regime ordered 5. Nausea with vomiting - Zofran PRN 6. Disposition - awaiting recommendations from Urology and Vasc Surgery - Continue current care Subjective 24 Hr Interval Summary Free Text/Dictation Patient still experiencing suprapubic discomfort but improved since admission. Awaiting urology recommendations. Experiencing one episodes of nausea with vomiting this am but has since resolved. Exam/Review of Systems Vital Signs Vitals Vital Signs Date Time Temp Pulse Resp B/P Pulse Ox O2 Delivery O2 Flow Rate FiO2 01/02/17 07:48 97.8 94 19 156/81 99 01/02/17 03:30 Room Air Intake and Output 01/01/17 01/01/17 01/02/17 15:00 23:00 07:00 Intake Total 720 ml Output Total 800 ml Balance -80 ml Exam General: Obese female, NAD HEENT: NC/AT, PERRL, EOM intact Neck: Supple with full range of motion. Lungs: Clear to auscultation bilaterally no crackles rales or wheezing Heart: Normal S1-S2, Regular rhythm and rate. No murmur Abdomen: Soft, tenderness to palpation over the suprapubic area, nondistended, Extremities: 1+ distal pulses bilaterally Neurologic: Normal mental status, speech normal, cranial nerves II through XII are intact, motor and sensory are intact, no focal weakness Results Result Diagram: 01/01/17212901/01/172129 Results 24 hrs Laboratory Tests Test 01/01/17 21:30 01/02/17 08:28 01/02/17 12:37 White Blood Count 9.3 Red Blood Count 4.27 Hemoglobin 12.8 Hematocrit 38.5 Mean Corpuscular Volume 90.2 Mean Corpuscular Hemoglobin 30.0 Mean Corpuscular Hemoglobin Concent 33.2 Red Cell Distribution Width 14.9 H Platelet Count 388 Mean Platelet Volume 11.1 H Neutrophils % 62.0 Lymphocytes % 28.5 Monocytes % 6.2 Eosinophils % 2.3 Basophils % 0.5 Nucleated Red Blood Cells % 0.0 Neutrophils # 5.8 Lymphocytes # 2.7 Monocytes # 0.6 Eosinophils # 0.2 Basophils # 0.1 Nucleated Red Blood Cells # 0.0 Urine Color COLORLESS Urine Clarity CLEAR Urine pH 7.0 Urine Specific [place] 1.012 Urine Ketones NEGATIVE Urine Nitrite NEGATIVE Urine Bilirubin NEGATIVE Urine Urobilinogen NEGATIVE Urine Leukocyte Esterase NEGATIVE Urine Microscopic RBC 6 H Urine Microscopic WBC 2 Urine Squamous Epithelial Cells FEW Urine Hemoglobin 1+ H Urine Glucose 3+ H Urine Total Protein 2+ H Sodium Level 135 Potassium Level 4.4 Chloride Level 104 Carbon Dioxide Level 23 Anion Gap 12 Blood Urea Nitrogen 20 Creatinine 0.96 Glucose Level 325 H Calcium Level 8.6 Total Bilirubin 0.1 L Direct Bilirubin 0.00 Indirect Bilirubin 0.1 Aspartate Amino Transf (AST/SGOT) 31 Alanine Aminotransferase (ALT/SGPT) 16 Alkaline Phosphatase 143 H Total Protein 8.0 Albumin 3.7 Globulin 4.30 H Albumin/Globulin Ratio 0.86 Lipase 185 Bedside Glucose 280 H 184 Medications Medications Current Medications Ondansetron HCl (Zofran Inj) 4 mg Q6H PRN IV NAUSEA AND/OR VOMITING Last administered on 01/02/17 09:57; Admin Dose 4 MG; Start 01/02/17 at 03:00 Acetaminophen (Tylenol Tab) 650 mg Q6H PRN PO PAIN LEVEL 1-3 OR FEVER; Start at 03:00 Hydromorphone HCl (Dilaudid) 1 mg Q4H PRN IV SEVERE PAIN LEVEL 7-10 Last administered on 01/02/17 13:02; Admin Dose 1 MG; Start 01/02/17 at 03:00 Diagnostic Test (Pha) (Accu-Chek) 1 ea 02 XX ; Start 01/03/17 at 02:00 Diagnostic Test (Pha) (Accu-Chek) 1 ea 02 XX ; Start 01/03/17 at 02:00 Miscellaneous Information 1 ea NOTE XX ; Start 01/02/17 at 03:30 Glucose (Glutose) 15 gm Q15M PRN PO DECREASED GLUCOSE; Start 01/02/17 at 03:30 Glucose (Glutose) 22.5 gm Q15M PRN PO DECREASED GLUCOSE; Start 01/02/17 at 03: 30 Dextrose (D50w Syringe) 25 ml Q15M PRN IV DECREASED GLUCOSE; Start 01/02/17 at 03:30 Dextrose (D50w Syringe) 50 ml Q15M PRN IV DECREASED GLUCOSE; Start 01/02/17 at 03:30 Glucagon (Glucagen) 1 mg Q15M PRN IM DECREASED GLUCOSE; Start 01/02/17 at 03:30 Glucose 15 gm 15 gm Q15M PRN BUCCAL DECREASED GLUCOSE; Start 01/02/17 at 03:30 Metronidazole 100 ml @ 100 mls/hr Q8 IVPB Last administered on 01/02/17 14:12 ; Admin Dose 100 MLS/HR; Start 01/02/17 at 09:00 Levofloxacin/ Dextrose (Levaquin 750 Mg/ D5W 150 ml (Pmx)) 150 ml @ 100 mls/hr Q24H IVPB Last administered on 01/02/17 11:34; Admin Dose 100 MLS/HR; Start at 10:00 KIRAN STATON MD Jan 02, 2017 15:43
[2017-01-02] MEDS ORDERED: morphine 10 MG INJ IM ONE (19:40)
[2017-01-02] MEDS ORDERED: morphine 2 MG INJ IV ONE (19:50)
[2017-01-02] MEDS: hydrALAzine 20 MG INJ IV PRN (20:52)
[2017-01-03] VITALS (7 sets, daily range): BP systolic 136–187; BP diastolic 69–97; PULSE 115–125; RESP 16–22
[2017-01-03] MEDS: ACCU-CHEK XX SCH (02:00)
[2017-01-03] MEDS ORDERED: ACCU-CHEK XX SCH (02:00)
[2017-01-03 05:55] LABS: BASOPHILS % 0.4 % (0.0-2.0); EOSINOPHILS % 0.4 % (0.0-7.0); HEMATOCRIT 37.4 % (37.0-47.0); LYMPHOCYTES # 1.4 10^3/ul (0.8-2.9); LYMPHOCYTES % 14.4 % (15.0-51.0); MEAN CORPUSCULAR HEMOGLOBIN 29.3 pg (29.0-33.0); MEAN CORPUSCULAR HGB CONC 32.1 g/dl (32.0-37.0); MEAN CORPUSCULAR VOLUME 91.2 fl (82.0-101.0); MEAN PLATELET VOLUME 11.3 fl (7.4-10.4); MONOCYTE # 0.5 10^3/ul (0.3-0.9); NEUTROPHIL # 7.8 10^3/ul (1.6-7.5); NEUTROPHILS % 79.4 % (39.0-77.0); PLATELET COUNT 354 10^3/UL (140-415); RED CELL DISTRIBUTION WIDTH 14.9 % (11.5-14.5); WHITE BLOOD COUNT 9.9 10^3/ul (4.8-10.8)
[2017-01-03] MEDS: ONDANSETRON 4 MG INJ IV PRN ×4 (05:58→17:43)
[2017-01-03] MEDS: HYDROmorphONE 1 MG/ML SYG IV PRN ×3 (05:59→16:36)
[2017-01-03 06:19] LABS: ALBUMIN 3.5 g/dl (3.3-4.9); ALBUMIN/GLOBULIN RATIO 0.89; BILIRUBIN,INDIRECT 0.2 mg/dl (0-1.1); BILIRUBIN,TOTAL 0.2 mg/dl (0.2-1.3); CHOL/HDL RATIO 7.1 RATIO; CREATININE 0.96 mg/dl (0.44-1.00); MAGNESIUM 1.9 mg/dl (1.7-2.5); POTASSIUM 4.8 mmol/L (3.5-5.1); TOTAL PROTEIN 7.4 g/dl (6.1-8.1)
[2017-01-03] MEDS: metroNIDAZOLE 500 MG/NS (PMX) 100 ML IVPB SCH ×3 (06:56→21:54)
[2017-01-03 06:59] LABS: THYROID STIMULATING HORMONE 2.5 MIU/L (0.465-4.680)
[2017-01-03] MEDS: INSULIN ASPART [NOVOLOG] 3 ML PEN SC SCH ×5 (09:01→20:47)
[2017-01-03] MEDS: LEVOFLOXACIN 750MG/D5W (PMX) 150 ML IVPB SCH (09:02)
[2017-01-03] MEDS ORDERED: INSULIN ASPART [NOVOLOG] 3 ML PEN SC SCH (11:40)
--- NOTE | 2017-01-03 11:42 | PN ---
Date/Time of Note Date/Time of Note DATE: 01/03/17 TIME: 11:42 Assessment/Plan VTE Prophylaxis VTE Prophylaxis Intervention: SCD's Lines/Catheters IV Catheter Type (from Nrs): Saline Lock Urinary Cath still in place: Yes Reason Cath still needed: other (indicate) Assessment/Plan Chief Complaint/Hosp Course 1. Suprapubic pain with bilateral hydronephrosis.CT abdomen showed gas within the urinary bladder which is concerning for underlying infection. Stable renal function - Urology consulted from ED on 01/01/17 and recommended inpatient treatment/ IVabx over the phone. Has not seen patient yet. Patient received 3 days IV abx- we will repeat renal ultrasound to check on status of hydronephrosis. -Urine culture seems contaminated-repeat urine culture has been ordered. - Continue IV hydrations, antiemetics PRN and IV antibiotics 2. Poorly controlled diabetes with A1c 13.2. -Start Lantus based on weight. Start pre-meal aspart and continue Accu-Cheks and de-escalate sliding scale to low-dose. -Diabetic education will be requested. Will consider starting metformin upon discharge. 3. Peripheral vascular disease. Status post bypass grafting with Possible kinking of the graft. - Vascular surgery consulted-pending recommendations. 4. Hypercholesterolemia with significant triglyceridemia. -Start statin and fibrates. 5. Hypertension. -Start low dose CCB and titrate as needed. Goal BP <140/90 6. Constipation. Stable. -Continue with bowel regimen. 7. Nausea with vomiting, likely concurrent versus viral gastroenteritis. CT without any acute inflammation. -Start [id number] Reglan and continue Zofran PRN -Monitor lytes closely. Plan: Continue current medical management. Pending recommendations from urology regarding course of treatment. F/u with vascular recs. Patient was seen in collaboration with Dr. Polanco. Problems: Subjective 24 Hr Interval Summary Free Text/Dictation Patient remains afebrile. Having nausea and vomiting. Exam/Review of Systems Vital Signs Vitals Vital Signs Date Time Temp Pulse Resp B/P Pulse Ox O2 Delivery O2 Flow Rate FiO2 01/03/17 07:28 98.1 110 22 166/88 97 01/02/17 03:30 Room Air Intake and Output 01/02/17 01/02/17 01/03/17 15:00 23:00 07:00 Intake Total 1110 ml 500 ml Output Total 1500 ml 1150 ml Balance -390 ml -650 ml Exam General: Well developed,adequately built, not in any acute distress . HEENT: Normocephalic, Atraumatic, No laceration or hematoma; Eyes: PEERL, Conjunctiva clear, Anicteric sclera Neck: Supple without any lymphadenopathy, nontender, no JVD, no carotid bruits, trachea midline, no thyromegaly Cardiac: S1, S2 auscultated, regular rhythm and rate, no mumurs or gallop Pulmonary: Normal respiratory effort. Chest clear to auscultation bilaterally, no adventitious breath sounds GI: Abdomen normal to inspection. Soft, non tender, non- distended, no masses, no rebound tenderness or guarding. Bowel sounds active on all four quadrants Genitourinary: With suprapubic tenderness. Extremities: No cyanosis, clubbing, or edema. Pulses [2+] bilaterally. Full ROM on all four extremities. No focal weakness appreciated. Neurologic: Alert to person, place, time, and situation. Affect appropriate, intact sensation. Skin: Clean,dry, and intact. No ecchymosis, no rashes, or lesions Results Result Diagram: 01/03/17 0431 01/03/17 0431 Results 24 hrs Laboratory Tests Test 01/02/17 12:37 01/02/17 17:38 01/02/17 21:46 01/03/17 04:31 Bedside Glucose 184 114 125 White Blood Count 9.9 Red Blood Count 4.10 L Hemoglobin 12.0 Hematocrit 37.4 Mean Corpuscular Volume 91.2 Mean Corpuscular Hemoglobin 29.3 Mean Corpuscular Hemoglobin Concent 32.1 Red Cell Distribution Width 14.9 H Platelet Count 354 Mean Platelet Volume 11.3 H Neutrophils % 79.4 H Lymphocytes % 14.4 L Monocytes % 5.0 Eosinophils % 0.4 Basophils % 0.4 Nucleated Red Blood Cells % 0.0 Neutrophils # 7.8 H Lymphocytes # 1.4 Monocytes # 0.5 Eosinophils # 0.0 Basophils # 0.0 Nucleated Red Blood Cells # 0.0 Sodium Level 140 Potassium Level 4.8 Chloride Level 109 Carbon Dioxide Level 22 Anion Gap 14 Blood Urea Nitrogen 14 Creatinine 0.96 Glucose Level 159 # Hemoglobin A1c 13.4 H Calcium Level 9.0 Magnesium Level 1.9 Total Bilirubin 0.2 Direct Bilirubin 0.00 Indirect Bilirubin 0.2 Aspartate Amino Transf (AST/SGOT) 17 Alanine Aminotransferase (ALT/SGPT) 27 Alkaline Phosphatase 88 Total Protein 7.4 Albumin 3.5 Globulin 3.90 H Albumin/Globulin Ratio 0.89 Triglycerides Level 413 H Cholesterol Level 266 H LDL Cholesterol, Calculated 146 HDL Cholesterol 37 Cholesterol/HDL Ratio 7.1 Thyroid Stimulating Hormone (TSH) 2.500 Test 01/03/17 08:59 Bedside Glucose 187 Medications Medications Current Medications Acetaminophen (Tylenol Tab) 650 mg Q6H PRN PO PAIN LEVEL 1-3 OR FEVER; Start at 03:00 Hydromorphone HCl (Dilaudid) 1 mg Q4H PRN IV SEVERE PAIN LEVEL 7-10 Last administered on 01/03/17 05:59; Admin Dose 1 MG; Start 01/02/17 at 03:00 Diagnostic Test (Pha) (Accu-Chek) 1 ea 02 XX ; Start 01/03/17 at 02:00 Diagnostic Test (Pha) (Accu-Chek) 1 ea 02 XX ; Start 01/03/17 at 02:00 Miscellaneous Information 1 ea NOTE XX ; Start 01/02/17 at 03:30 Glucose (Glutose) 15 gm Q15M PRN PO DECREASED GLUCOSE; Start 01/02/17 at 03:30 Glucose (Glutose) 22.5 gm Q15M PRN PO DECREASED GLUCOSE; Start 01/02/17 at 03: 30 Dextrose (D50w Syringe) 25 ml Q15M PRN IV DECREASED GLUCOSE; Start 01/02/17 at 03:30 Dextrose (D50w Syringe) 50 ml Q15M PRN IV DECREASED GLUCOSE; Start 01/02/17 at 03:30 Glucagon (Glucagen) 1 mg Q15M PRN IM DECREASED GLUCOSE; Start 01/02/17 at 03:30 Glucose 15 gm 15 gm Q15M PRN BUCCAL DECREASED GLUCOSE; Start 01/02/17 at 03:30 Metronidazole 100 ml @ 100 mls/hr Q8 IVPB Last administered on 01/03/17 06:56 ; Admin Dose 100 MLS/HR; Start 01/02/17 at 09:00 Levofloxacin/ Dextrose (Levaquin 750 Mg/ D5W 150 ml (Pmx)) 150 ml @ 100 mls/hr Q24H IVPB Last administered on 01/03/17 09:02; Admin Dose 100 MLS/HR; Start at 10:00 Hydralazine HCl (Apresoline) 10 mg Q6H PRN IV ELEVATED BLOOD PRESSURE Last administered on 01/02/17 20:52; Admin Dose 10 MG; Start 01/02/17 at 19:40 Ondansetron HCl (Zofran Inj) 4 mg Q4 PRN IV NAUSEA AND/OR VOMITING Last administered on 01/03/17 07:47; Admin Dose 4 MG; Start 01/02/17 at 21:51 ROMMEL BAUMANN NP Jan 03, 2017 11:42
--- NOTE | 2017-01-03 12:30 | RADRPT ---
PROCEDURE: Renal US. CLINICAL INDICATION: Renal dysfunction. TECHNIQUE: Multiple sonographic images of the kidneys and urinary bladder were obtained. The imag es were reviewed on a PACS workstation. COMPARISON: CT scan of the abdomen and pelvis dated 01/01/2017. FINDINGS: The right kidney measures 9.9 x 4.4 x 4.7 cm. The left kidney measures 10.7 x 6.0 x 5.2 cm. There is no renal mass. There is no right hydronephrosis. There is mild left hydronephrosis. There is no renal calculus. Renal parenchymal thickness is normal bilaterally. Echogenicity is normal bilaterally. The perirenal regions are normal with no fluid collection or mass. There is a Alvarado catheter in the urinary bladder. IMPRESSION: 1. Mild left hydronephrosis. 2. Alvarado catheter in the bladder. 3. Otherwise unremarkable renal ultrasound. RPTAT: QQ .Juan Sanders MD, MD Date Time Electronically viewed and signed by .Juan Sanders MD, on 01/03/2017 12:30 .R/
[2017-01-03] MEDS: METOCLOPRAMIDE 10 MG INJ IV SCH ×4 (16:33→23:46)
[2017-01-03] MEDS ORDERED: metFORMIN 500 MG TAB PO SCH (17:25)
[2017-01-03] MEDS ORDERED: ONDANSETRON INJ 8 MG in DEXTROSE 5% 50 ML IV PRN (20:30)
[2017-01-03] MEDS ORDERED: LORAZEPAM 2 MG INJ IV ONE (20:30)
[2017-01-03] MEDS: ATORVASTATIN 10 MG TAB PO SCH (20:40)
[2017-01-03] MEDS: GEMFIBROZIL 600 MG TAB PO SCH (20:41)
[2017-01-03] MEDS ORDERED: AMLODIPINE 5 MG TAB PO ONE (21:00)
[2017-01-03] MEDS: SOD CHLORIDE 0.9% 1,000 ML IV SCH (21:19)
[2017-01-03] MEDS: hydrALAzine 20 MG INJ IV PRN (22:06)
[2017-01-04 01:34] VITALS: BP 130/72; RESP 18
[2017-01-04] MEDS ORDERED: ACCU-CHEK XX SCH (02:00)
[2017-01-04] MEDS: ACCU-CHEK XX SCH (02:00)
--- NOTE | 2017-01-04 04:26 | CONS ---
DATE OF ADMISSION: 01/02/2017 DATE OF CONSULTATION: 01/03/2017 REASON FOR CONSULTATION: Peripheral vascular disease. HISTORY OF PRESENT ILLNESS: This is a 36-year-old female, admitted because of possible UTI. The patient does have a history of peripheral vascular disease and mostly claudication affecting the left lower extremity. Part of his studies have included a CAT scan, which has showed minimal atherosclerotic calcification but no aneurysm. There is a graft from the bilateral common femoral artery with a right femoral bypass grafting which is incompletely imaged. There is also graft in the left superficial femoral artery which is incompletely imaged. The graft has a kink at its origin with focal narrowing. The patient's symptomatology is mostly claudication with some rest pain. PAST MEDICAL HISTORY: Hypertension, hyperlipidemia, and peripheral vascular disease. PAST SURGICAL HISTORY: As above. ALLERGIES: NONE. SOCIAL HISTORY: No smoking, drinking, or drug use. MEDICATION: Reviewed. PHYSICAL EXAMINATION: VITALS: Blood pressure is 166/88, pulse is 110, respirations 22, and saturation 97 percent. HEART: Regular rate and rhythm. Normal S1, S2. LUNGS: Clear to auscultation and palpation bilaterally. ABDOMEN: Soft, nontender, and nondistended. EXTREMITIES: Warm all the way down to the knee. They become slightly cool from the ankles down. The posterior tibial pulses are not palpable. Dorsalis pedis pulses are palpable but diminished. Capillary refill is 2 seconds. LABORATORY: Significant for a white count of 9.9, hemoglobin 12, and platelet count 354. IMPRESSION: Peripheral vascular disease status post bypass grafting with kinking of the graft. RECOMMENDATIONS: At this time, no vascular intervention is needed. However, the patient will need a CT scan of the abdomen and pelvis with runoff with contrast to fully evaluate the bypass graft. We will also ask for an arterial duplex. We will discuss with referring physician. Dictated By: Tal Negrete MD /sapna/jaylin /Document#: [id number]
[2017-01-04 05:28] LABS: BASOPHILS % 0.4 % (0.0-2.0); EOSINOPHILS % 0.1 % (0.0-7.0); HEMATOCRIT 37.5 % (37.0-47.0); HEMOGLOBIN 12.1 g/dl (12.0-16.0); LYMPHOCYTES # 1.4 10^3/ul (0.8-2.9); LYMPHOCYTES % 14.5 % (15.0-51.0); MEAN CORPUSCULAR HEMOGLOBIN 29.2 pg (29.0-33.0); MEAN CORPUSCULAR HGB CONC 32.3 g/dl (32.0-37.0); MEAN CORPUSCULAR VOLUME 90.4 fl (82.0-101.0); MONOCYTE # 0.7 10^3/ul (0.3-0.9); MONOCYTES % 7.7 % (0.0-11.0); NEUTROPHIL # 7.3 10^3/ul (1.6-7.5); NEUTROPHILS % 76.8 % (39.0-77.0); PLATELET COUNT 382 10^3/UL (140-415); RED BLOOD COUNT 4.15 10^6/ul (4.20-5.40); RED CELL DISTRIBUTION WIDTH 15.2 % (11.5-14.5); WHITE BLOOD COUNT 9.5 10^3/ul (4.8-10.8)
[2017-01-04] MEDS: metroNIDAZOLE 500 MG/NS (PMX) 100 ML IVPB SCH ×3 (05:51→21:45)
[2017-01-04] MEDS: METOCLOPRAMIDE 10 MG INJ IV SCH ×3 (05:51→18:26)
[2017-01-04] MEDS ORDERED: SOD CHLORIDE 0.9% 500 ML IV ONE (06:15)
[2017-01-04 06:43] LABS: CALCIUM 8.6 mg/dl (8.4-10.2); CREATININE 1.16 mg/dl (0.44-1.00); POTASSIUM 4.1 mmol/L (3.5-5.1)
[2017-01-04 08:04] VITALS: BP 173/92; RESP 18
[2017-01-04 08:26] VITALS: BP 150/81; PULSE 123
[2017-01-04] MEDS: INSULIN ASPART [NOVOLOG] 3 ML PEN SC SCH ×7 (08:29→20:20)
[2017-01-04] MEDS: AMLODIPINE 5 MG TAB PO SCH (08:32)
[2017-01-04] MEDS: GEMFIBROZIL 600 MG TAB PO SCH ×2 (08:32→20:19)
[2017-01-04] MEDS: HYDROmorphONE 1 MG/ML SYG IV PRN (08:33)
[2017-01-04] MEDS: LEVOFLOXACIN 750MG/D5W (PMX) 150 ML IVPB SCH (09:33)
[2017-01-04] MEDS: INSULIN GLARGINE [LANtus] 3 ML PEN SC SCH (09:41)
[2017-01-04] MEDS: SOD CHLORIDE 0.9% 1,000 ML IV SCH ×2 (10:20→16:24)
[2017-01-04] MEDS: ONDANSETRON 4 MG INJ IV PRN ×2 (12:05→16:16)
--- NOTE | 2017-01-04 12:10 | PN ---
Date/Time of Note Date/Time of Note DATE: 01/04/17 TIME: 12:07 Assessment/Plan VTE Prophylaxis VTE Prophylaxis Intervention: ambulation Lines/Catheters IV Catheter Type (from Nrs): Saline Lock Urinary Cath still in place: Yes Reason Cath still needed: other (indicate) Assessment/Plan Chief Complaint/Hosp Course 1. Suprapubic pain with bilateral hydronephrosis.CT abdomen showed gas within the urinary bladder which is concerning for underlying infection. Stable renal function - Urology consulted from ED on 01/01/17 and recommended inpatient treatment/ IVabx -No need to see patient in hospital recommendations. Patient received 4 days IV abx- -Repeat renal ultrasound with significant improvement with mild hydronephrosis on left. Urine culture seems contaminated-f/u final repeat urine culture - Continue IV hydrations, antiemetics PRN and IV antibiotics 2. Poorly controlled diabetes with A1c 13.2. Now ith better glycemic trends. -Continue Lantus, pre-meal aspart along with Accu-Cheks/ ISS -Diabetic education requested. Will consider starting metformin upon discharge. 3. Peripheral vascular disease. Status post bypass grafting with possible kinking of the graft. - Vascular surgery eval appreciated- Recommended CTA with run off and arterial studies of LEs-Proceed with arterial studies of LEs -Repeat renal fxn prior CTA- can be done as outpt once renal fxn stabilizes. 4. Hypercholesterolemia with significant triglyceridemia. -On statin and fibrates. 5. Hypertension. Improved. -On CCB . Will titrate as needed. Goal BP <140/90 6. Constipation. Stable. -Continue with bowel regimen. 7. Nausea with vomiting, likely concurrent versus viral gastroenteritis. CT without any acute inflammation. -Continue Reglan and continue Zofran PRN. Add Protonix. -Monitor lytes closely. Plan: Continue current medical management. Follow-up with vascular studies. Will also have case management arrange outpatient follow-up with and . Follow-up final cultures. Will also have case management provide patient with resources for finding a primary care provider. Patient was seen in collaboration with Dr. Polanco. Problems: Subjective 24 Hr Interval Summary Free Text/Dictation Patient still nauseated. Afebrile. Leg pain improved. Exam/Review of Systems Vital Signs Vitals Vital Signs Date Time Temp Pulse Resp B/P Pulse Ox O2 Delivery O2 Flow Rate FiO2 01/04/17 08:26 123 150/81 01/04/17 08:04 98.7 18 97 01/02/17 03:30 Room Air Intake and Output 01/03/17 01/03/17 01/04/17 15:00 23:00 07:00 Intake Total 250 ml 1720 ml 1162.5 ml Output Total 1700 ml 1000 ml Balance 250 ml 20 ml 162.5 ml Exam General: Well developed,adequately built, not in any acute distress . HEENT: Normocephalic, Atraumatic, No laceration or hematoma; Eyes: PEERL, Conjunctiva clear, Anicteric sclera Neck: Supple without any lymphadenopathy, nontender, no JVD, no carotid bruits, trachea midline, no thyromegaly Cardiac: S1, S2 auscultated, regular rhythm and rate, no mumurs or gallop Pulmonary: Normal respiratory effort. Chest clear to auscultation bilaterally, no adventitious breath sounds GI: Abdomen normal to inspection. Soft, non tender, non- distended, no masses, no rebound tenderness or guarding. Bowel sounds active on all four quadrants Genitourinary: With suprapubic tenderness. Extremities: No cyanosis, clubbing, or edema. Pulses [2+] bilaterally. Full ROM on all four extremities. No focal weakness appreciated. Neurologic: Alert to person, place, time, and situation. Affect appropriate, intact sensation. Skin: Clean,dry, and intact. No ecchymosis, no rashes, or lesions Results Result Diagram: 01/04/17 0438 01/04/17 0438 Results 24 hrs Laboratory Tests Test 01/03/17 12:29 01/03/17 17:40 01/03/17 20:42 01/04/17 02:06 Bedside Glucose 186 176 192 138 Test 01/04/17 04:38 01/04/17 08:27 White Blood Count 9.5 Red Blood Count 4.15 L Hemoglobin 12.1 Hematocrit 37.5 Mean Corpuscular Volume 90.4 Mean Corpuscular Hemoglobin 29.2 Mean Corpuscular Hemoglobin Concent 32.3 Red Cell Distribution Width 15.2 H Platelet Count 382 Mean Platelet Volume 11.0 H Neutrophils % 76.8 Lymphocytes % 14.5 L Monocytes % 7.7 Eosinophils % 0.1 Basophils % 0.4 Nucleated Red Blood Cells % 0.0 Neutrophils # 7.3 Lymphocytes # 1.4 Monocytes # 0.7 Eosinophils # 0.0 Basophils # 0.0 Nucleated Red Blood Cells # 0.0 Sodium Level 141 Potassium Level 4.1 Chloride Level 109 Carbon Dioxide Level 24 Anion Gap 12 Blood Urea Nitrogen 18 Creatinine 1.16 H Glucose Level 148 Calcium Level 8.6 Bedside Glucose 186 Medications Medications Current Medications Acetaminophen (Tylenol Tab) 650 mg Q6H PRN PO PAIN LEVEL 1-3 OR FEVER; Start at 03:00 Hydromorphone HCl (Dilaudid) 1 mg Q4H PRN IV SEVERE PAIN LEVEL 7-10 Last administered on 01/04/17 08:33; Admin Dose 1 MG; Start 01/02/17 at 03:00 Diagnostic Test (Pha) (Accu-Chek) 1 ea 02 XX ; Start 01/03/17 at 02:00 Miscellaneous Information 1 ea NOTE XX ; Start 01/02/17 at 03:30 Glucose (Glutose) 15 gm Q15M PRN PO DECREASED GLUCOSE; Start 01/02/17 at 03:30 Glucose (Glutose) 22.5 gm Q15M PRN PO DECREASED GLUCOSE; Start 01/02/17 at 03: 30 Dextrose (D50w Syringe) 25 ml Q15M PRN IV DECREASED GLUCOSE; Start 01/02/17 at 03:30 Dextrose (D50w Syringe) 50 ml Q15M PRN IV DECREASED GLUCOSE; Start 01/02/17 at 03:30 Glucagon (Glucagen) 1 mg Q15M PRN IM DECREASED GLUCOSE; Start 01/02/17 at 03:30 Glucose 15 gm 15 gm Q15M PRN BUCCAL DECREASED GLUCOSE; Start 01/02/17 at 03:30 Metronidazole 100 ml @ 100 mls/hr Q8 IVPB Last administered on 01/04/17 05:51 ; Admin Dose 100 MLS/HR; Start 01/02/17 at 09:00 Levofloxacin/ Dextrose (Levaquin 750 Mg/ D5W 150 ml (Pmx)) 150 ml @ 100 mls/hr Q24H IVPB Last administered on 01/04/17 09:33; Admin Dose 100 MLS/HR; Start at 10:00 Hydralazine HCl (Apresoline) 10 mg Q6H PRN IV ELEVATED BLOOD PRESSURE Last administered on 01/03/17 22:06; Admin Dose 10 MG; Start 01/02/17 at 19:40 Ondansetron HCl (Zofran Inj) 4 mg Q4 PRN IV NAUSEA AND/OR VOMITING Last administered on 01/04/17 12:05; Admin Dose 4 MG; Start 01/02/17 at 21:51 Insulin Glargine (Lantus) 11 unit DAILY@08 SC Last administered on 01/04/17 09 :41; Admin Dose 11 UNIT; Start 01/04/17 at 08:00 Atorvastatin Calcium (Lipitor) 10 mg HS PO Last administered on 01/03/17 20:40 ; Admin Dose 10 MG; Start 01/03/17 at 21:00 Gemfibrozil 600 mg 600 mg BID PO Last administered on 01/04/17 08:32; Admin Dose 600 MG; Start 01/03/17 at 21:00 Ondansetron HCl/ Dextrose (Zofran Inj/D5W) 54 ml @ 108 mls/hr Q6H PRN IV NAUSEA AND/OR VOMITING; Start 01/03/17 at 20:30 Amlodipine Besylate 5 mg 5 mg DAILY PO Last administered on 01/04/17 08:32; Admin Dose 5 MG; Start 01/04/17 at 09:00 Sodium Chloride (NS) 1,000 ml @ 75 mls/hr [id number] IV Last administered on 01/03 21:19; Admin Dose 75 MLS/HR; Start 01/03/17 at 21:00 Clonidine (Catapres) 0.1 mg Q6H PRN PO ELEVATED BLOOD PRESSURE; Start 01/03/17 at 23:30 ROMMEL BAUMANN NP Jan 04, 2017 12:10 ROMMEL BAUMANN NP Jan 04, 2017 12:10 ROMMEL BAUMANN NP Jan 04, 2017 12:10
[2017-01-04] MEDS: PANTOPRAZOLE (EC) 40 MG TAB PO SCH (13:37)
[2017-01-04] MEDS ORDERED: FAMOTIDINE 20 MG INJ IV ONE (14:00)
--- NOTE | 2017-01-04 15:17 | RADRPT ---
PROCEDURE: US bilateral lower extremity arteries. CLINICAL INDICATION: Bilateral leg pain. Claudication that interferes significantly with the lizzy ent's lifestyle. TECHNIQUE: Multiple longitudinal and transverse images of the bilateral lower extremity arteries w ere obtained with garcia scale, pulsed Doppler, and color Doppler imaging. COMPARISON: No prior studies are available for comparison. FINDINGS: Right COURT OFFICER:141 cm/sec PSFA:Occluded MSFA:Occluded DSFA:Occluded POP:28 cm/sec SSIS ETL DEVELOPER:43 cm/sec DPA:75 cm/sec Left COURT OFFICER:136 cm/sec PSFA:Occluded MSFA:Occluded DSFA:Occluded POP:26 cm/sec SSIS ETL DEVELOPER:13 cm/sec DPA:12 cm/sec The right ankle-brachial index is 0.78 and the left ankle-brachial index is 0.85. Bilateral femoral popliteal bypass grafts are occluded. There is monophasic flow bilaterally in the popliteal and calf arteries. Normal triphasic flow is present in the common femoral arteries. IMPRESSION: 1. There are bilateral femoral popliteal bypass grafts which are occluded. Bilateral superficial fe moral arteries are occluded. 2. Abnormal monophasic flow bilaterally in the popliteal and calf arteries. RPTAT: QQ .uJan Sanders MD, Date Time Electronically viewed and signed by .Juan Sanders MD, on 01/04/2017 15:17 .R/
[2017-01-04 16:34] VITALS: BP 162/86; RESP 20
[2017-01-04] MEDS ORDERED: PANTOPRAZOLE 40 MG INJ IV SCH (18:00)
[2017-01-04] MEDS ORDERED: METOCLOPRAMIDE 10 MG INJ IV SCH (18:00)
[2017-01-04 19:50] VITALS: BP 161/78; RESP 18
[2017-01-04] MEDS: ATORVASTATIN 10 MG TAB PO SCH (20:19)
[2017-01-05] VITALS (31 sets, daily range): BP systolic 116–203; BP diastolic 56–96; PULSE 88–114; RESP 14–20
[2017-01-05] MEDS: METOCLOPRAMIDE 10 MG INJ IV SCH ×4 (00:51→20:19)
[2017-01-05] MEDS: ACCU-CHEK XX SCH (02:00)
[2017-01-05] MEDS: metroNIDAZOLE 500 MG/NS (PMX) 100 ML IVPB SCH ×3 (05:11→21:46)
[2017-01-05] MEDS: PANTOPRAZOLE (EC) 40 MG TAB PO SCH ×2 (05:11→18:00)
[2017-01-05 05:28] LABS: BASOPHIL # 0.1 10^3/ul (0.0-0.1); BASOPHILS % 0.7 % (0.0-2.0); EOSINOPHILS # 0.1 10^3/ul (0.0-0.5); EOSINOPHILS % 1.1 % (0.0-7.0); HEMATOCRIT 34.2 % (37.0-47.0); LYMPHOCYTES # 1.9 10^3/ul (0.8-2.9); LYMPHOCYTES % 24.7 % (15.0-51.0); MEAN CORPUSCULAR HEMOGLOBIN 28.9 pg (29.0-33.0); MEAN CORPUSCULAR HGB CONC 32.2 g/dl (32.0-37.0); MEAN CORPUSCULAR VOLUME 89.8 fl (82.0-101.0); MEAN PLATELET VOLUME 10.9 fl (7.4-10.4); MONOCYTE # 0.8 10^3/ul (0.3-0.9); NEUTROPHIL # 4.8 10^3/ul (1.6-7.5); NEUTROPHILS % 63.1 % (39.0-77.0); PLATELET COUNT 327 10^3/UL (140-415); RED BLOOD COUNT 3.81 10^6/ul (4.20-5.40); WHITE BLOOD COUNT 7.6 10^3/ul (4.8-10.8)
[2017-01-05 06:03] LABS: CALCIUM 8.1 mg/dl (8.4-10.2); CREATININE 0.99 mg/dl (0.44-1.00); POTASSIUM 3.6 mmol/L (3.5-5.1)
[2017-01-05] MEDS: INSULIN ASPART [NOVOLOG] 3 ML PEN SC SCH ×5 (07:50→20:37)
[2017-01-05] MEDS: HYDROmorphONE 1 MG/ML SYG IV PRN ×2 (07:57→20:19)
[2017-01-05] MEDS: AMLODIPINE 5 MG TAB PO SCH (07:58)
[2017-01-05] MEDS: ONDANSETRON 4 MG INJ IV PRN ×3 (07:58→21:24)
[2017-01-05] MEDS: SOD CHLORIDE 0.9% 1,000 ML IV SCH ×2 (08:03→12:20)
[2017-01-05] MEDS: GEMFIBROZIL 600 MG TAB PO SCH ×2 (08:03→21:46)
[2017-01-05] MEDS: INSULIN GLARGINE [LANtus] 3 ML PEN SC SCH (08:11)
--- NOTE | 2017-01-05 09:51 | PN ---
Date/Time of Note Date/Time of Note DATE: 01/05/17 TIME: 09:32 Assessment/Plan VTE Prophylaxis VTE Prophylaxis Intervention: ambulation Lines/Catheters IV Catheter Type (from Nrs): Peripheral IV Urinary Cath still in place: Yes Reason Cath still needed: other (indicate) Assessment/Plan Chief Complaint/Hosp Course 1. Suprapubic pain with bilateral hydronephrosis.CT abdomen showed gas within the urinary bladder which is concerning for underlying infection- No clinical evidence of UTI-this finding can be 2/2 to possible neurogenic bladder as patient with hx of DM. Clinically improved after indwelling catheter placed. - Urology consulted from ED on 01/01/17 and recommended inpatient treatment/ IVabx -No need to see patient in hospital. Patient received 5 days IV abx- - Repeat renal ultrasound with significant improvement with mild hydronephrosis on left. - Continue IV hydrations, antiemetics PRN. Consider DC of abx soon once BC also negative. 2. Poorly controlled diabetes with A1c 13.2. Now with better glycemic trends. -Continue Lantus along with Accu-Cheks/ ISS. Consider stopping premeal and starting Tradjenta to insulin dependence -Diabetic education requested. Metformin is not ideal choice on this lady at this time 2/2 GI upset 3. Peripheral vascular disease. Status post bypass grafting with possible kinking of the graft-Arterial study with occlusion of jose angel femoral arteries. - Vascular surgery eval appreciated- Proceed with CTA with run off in house. -Aspirin daily 4. Intractable Nausea with vomiting, rule out GI etiologies/possible gastroparesis with poorly controlled DM. CT without any acute inflammation. -One dose Tigan today. Continue PPIs, Reglan and Zofran PRN -NPO, GI consult for possible EGD- will consider NM gastric empty study if recommended by GI colleagues. -Monitor lytes closely. 5. Hypertension. Improved. -On CCB . Will titrate as needed. Goal BP <140/90 6. Hypercholesterolemia with significant triglyceridemia. -On statin and fibrates. Plan: Continue current medical management. Follow-up with vascular studies. F/ u with GI recs. Will also have case management arrange outpatient follow-up with and . Follow-up final cultures. Will also have case management provide patient with resources for finding a primary care provider. Patient was seen in collaboration with Dr. Polanco. Problems: Subjective 24 Hr Interval Summary Free Text/Dictation Patient continues have vomiting despite addition of around the clock Reglan . She also reports some abdominal pain.Afebrile. Exam/Review of Systems Vital Signs Vitals Vital Signs Date Time Temp Pulse Resp B/P Pulse Ox O2 Delivery O2 Flow Rate FiO2 01/05/17 07:48 98.0 101 19 168/81 98 01/02/17 03:30 Room Air Intake and Output 01/04/17 01/04/17 01/05/17 15:00 23:00 07:00 Intake Total 750 ml 882.5 ml 1570 ml Output Total 2900 ml 850 ml Balance 750 ml -2017.5 ml 720 ml Exam General: Well developed,adequately built, not in any acute distress . HEENT: Normocephalic, Atraumatic, No laceration or hematoma; Eyes: PEERL, Conjunctiva clear, Anicteric sclera Neck: Supple without any lymphadenopathy, nontender, no JVD, no carotid bruits, trachea midline, no thyromegaly Cardiac: S1, S2 auscultated, regular rhythm and rate, no mumurs or gallop Pulmonary: Normal respiratory effort. Chest clear to auscultation bilaterally, no adventitious breath sounds GI: Mild tenderness to palpation on all quadrants. +nausea/vomiting. Soft, non - distended, no masses, no rebound tenderness or guarding. Bowel sounds active on all four quadrants Genitourinary: With suprapubic tenderness. Extremities: Pain on calves+.No cyanosis, clubbing, or edema. Pulses [2+] bilaterally. Full ROM on all four extremities. No focal weakness appreciated. Neurologic: Alert to person, place, time, and situation. Affect appropriate, intact sensation. Skin: Clean,dry, and intact. No ecchymosis, no rashes, or lesions Results Result Diagram: 01/05/17 0443 01/05/173 Results 24 hrs Laboratory Tests Test 01/04/17 12:51 01/04/17 17:49 01/04/17 20:17 01/05/17 04:43 Bedside Glucose 154 121 89 White Blood Count 7.6 Red Blood Count 3.81 L Hemoglobin 11.0 L Hematocrit 34.2 L Mean Corpuscular Volume 89.8 Mean Corpuscular Hemoglobin 28.9 L Mean Corpuscular Hemoglobin Concent 32.2 Red Cell Distribution Width 15.0 H Platelet Count 327 Mean Platelet Volume 10.9 H Neutrophils % 63.1 Lymphocytes % 24.7 Monocytes % 10.0 Eosinophils % 1.1 Basophils % 0.7 Nucleated Red Blood Cells % 0.0 Neutrophils # 4.8 Lymphocytes # 1.9 Monocytes # 0.8 Eosinophils # 0.1 Basophils # 0.1 Nucleated Red Blood Cells # 0.0 Sodium Level 138 Potassium Level 3.6 Chloride Level 111 H Carbon Dioxide Level 22 Anion Gap 9 Blood Urea Nitrogen 14 Creatinine 0.99 Glucose Level 90 # Calcium Level 8.1 L Test 01/05/17 08:05 Bedside Glucose 91 Medications Medications Current Medications Acetaminophen (Tylenol Tab) 650 mg Q6H PRN PO PAIN LEVEL 1-3 OR FEVER; Start at 03:00 Hydromorphone HCl (Dilaudid) 1 mg Q4H PRN IV SEVERE PAIN LEVEL 7-10 Last administered on 01/05/17 07:57; Admin Dose 1 MG; Start 01/02/17 at 03:00 Diagnostic Test (Pha) (Accu-Chek) 1 ea 02 XX ; Start 01/03/17 at 02:00 Miscellaneous Information 1 ea NOTE XX ; Start 01/02/17 at 03:30 Glucose (Glutose) 15 gm Q15M PRN PO DECREASED GLUCOSE; Start 01/02/17 at 03:30 Glucose (Glutose) 22.5 gm Q15M PRN PO DECREASED GLUCOSE; Start 01/02/17 at 03: 30 Dextrose (D50w Syringe) 25 ml Q15M PRN IV DECREASED GLUCOSE; Start 01/02/17 at 03:30 Dextrose (D50w Syringe) 50 ml Q15M PRN IV DECREASED GLUCOSE; Start 01/02/17 at 03:30 Glucagon (Glucagen) 1 mg Q15M PRN IM DECREASED GLUCOSE; Start 01/02/17 at 03:30 Glucose 15 gm 15 gm Q15M PRN BUCCAL DECREASED GLUCOSE; Start 01/02/17 at 03:30 Metronidazole 100 ml @ 100 mls/hr Q8 IVPB Last administered on 01/05/17 05:11 ; Admin Dose 100 MLS/HR; Start 01/02/17 at 09:00 Levofloxacin/ Dextrose (Levaquin 750 Mg/ D5W 150 ml (Pmx)) 150 ml @ 100 mls/hr Q24H IVPB Last administered on 01/04/17 09:33; Admin Dose 100 MLS/HR; Start at 10:00 Hydralazine HCl (Apresoline) 10 mg Q6H PRN IV ELEVATED BLOOD PRESSURE Last administered on 01/03/17 22:06; Admin Dose 10 MG; Start 01/02/17 at 19:40 Ondansetron HCl (Zofran Inj) 4 mg Q4 PRN IV NAUSEA AND/OR VOMITING Last administered on 01/05/17 07:58; Admin Dose 4 MG; Start 01/02/17 at 21:51 Insulin Glargine (Lantus) 11 unit DAILY@08 SC Last administered on 01/05/17 08 :11; Admin Dose 11 UNIT; Start 01/04/17 at 08:00 Atorvastatin Calcium (Lipitor) 10 mg HS PO Last administered on 01/04/17 20:19 ; Admin Dose 10 MG; Start 01/03/17 at 21:00 Gemfibrozil 600 mg 600 mg BID PO Last administered on 01/05/17 08:03; Admin Dose 600 MG; Start 01/03/17 at 21:00 Ondansetron HCl/ Dextrose (Zofran Inj/D5W) 54 ml @ 108 mls/hr Q6H PRN IV NAUSEA AND/OR VOMITING; Start 01/03/17 at 20:30 Amlodipine Besylate 5 mg 5 mg DAILY PO Last administered on 01/05/17 07:58; Admin Dose 5 MG; Start 01/04/17 at 09:00 Sodium Chloride (NS) 1,000 ml @ 75 mls/hr [id number] IV Last administered on 01/05 08:03; Admin Dose 75 MLS/HR; Start 01/03/17 at 21:00 Clonidine (Catapres) 0.1 mg Q6H PRN PO ELEVATED BLOOD PRESSURE Last administered on 01/04/17 18:30; Admin Dose 0.1 MG; Start 01/03/17 at 23:30 Pantoprazole (Protonix Tab) 40 mg BID@06,18 PO Last administered on 01/05/17 05:11; Admin Dose 40 MG; Start 9/26/17 at 18:00 ROMMEL BAUMANN NP Jan 05, 2017 09:50
[2017-01-05] MEDS ORDERED: TRIMETHOBENZAMIDE 300 MG CAP PO ONE (10:00)
[2017-01-05] MEDS: LEVOFLOXACIN 750MG/D5W (PMX) 150 ML IVPB SCH (10:31)
[2017-01-05] MEDS ORDERED: IODIXANOL LOCM 50 ML BTL ONE (12:30)
[2017-01-05] MEDS ORDERED: SOD CHLORIDE 0.9% 100 ML ONE (12:30)
[2017-01-05] MEDS ORDERED: IODIXANOL LOCM 100 ML BTL ONE (12:30)
--- NOTE | 2017-01-05 15:33 | RADRPT ---
PROCEDURE: CT angiogram of the aorta and bilateral runoff. CLINICAL INDICATION: Check patency of the graft. TECHNIQUE: CT angiogram of the abdomen and pelvis with bilateral runoff was performed on the Fablic lti-slice CT scanner . The patient was scanned after administration of 120 cc of Visipaque 320 intr avenous contrast. Oral contrast was also administered. 3-D sagittal and coronal reformatted images were obtained from the axial source images. One or more of the following dose reduction techniques were used: Automated exposure control. Adjustment of the mA and/or kV according to patient size. Use of iterative reconstruction technique. DLP 1216.18 mGycm. CTDI vol 8.88, and 139.67 mGy COMPARISON: Lower extremity Doppler 01/04/2017 FINDINGS: CTA Aorta: There is normal caliber abdominal aorta with concentric fibrocalcific plaque in the infrarenal abdom inal aorta. The abdominal aorta is normal in caliber with no evidence of aneurysmal dilatation. The celiac artery, and SMA are widely patent with no focal stenosis. There is mild ostial stenosis o f the inferior mesenteric artery. There are bilateral single renal arteries with no focal stenosis. CTA Right leg: Right common external iliac and common femoral arteries are patent. There is occlusion of the right femoropopliteal graft. There is reconstitution of the right popliteal artery through collaterals. Th ere is diffuse calcific disease of the [id number]-[id number] arteries. The assessment of the stenosis is li mited due to circumferential nature of the atherosclerotic plaques. There is probable at least moder ate stenosis of the proximal anterior tibial artery. There is a focal moderate to severe stenosis of the proximal posterior tibial artery. CTA Left leg: Left common, external iliac and common femoral arteries are patent. There is occlusion of the left f em-pop bypass graft. There is reconstitution of the left popliteal artery. There is diminutive anterior tibial and perone al arteries. Concentric calcified plaques are seen involving the calf arteries. CT abdomen: The lung bases are clear. The liver, spleen, adrenal glands, pancreas, gallbladder and kidneys are normal. There is no ascites or retroperitoneal adenopathy. There is no bowel obstruction. There is diastases of the rectus abdominous muscle. Several small bow el loops protrudes into the anterior abdominal wall without fascial defect. CT pelvis: The urinary bladder is normal. The appendix is normal. There is approximately 3 cm hypodensity in th e left adnexa likely representing an ovarian cyst. Urinary bladder is decompressed with Alvarado cathet er in place. No pelvic masses or pelvic lymphadenopathy seen. There is no free fluid. The bony pelv is is intact. IMPRESSION: Vascular: 1. Mild atherosclerotic changes of the abdominal aorta with no aneurysmal dilatation significant hunter nosis. 2. Mesenteric arteries and renal arteries are patent with no significant ostial stenosis. Right le. Right iliac and common femoral arteries are patent. 2. Occlusion of the right fem-pop bypass graft. Abrupt caliber change of the graft at the distal daniel stomosis. 3. Reconstitution of the popliteal artery through collaterals. 4. Diffuse concentric calcific plaques involving the below-the- right knee arteries. 5. Suggestion of moderate stenosis at the proximal aspect of the anterior tibial artery and posterio r tibial artery. The assessment of the stenosis is limited due to concentric calcific nature of the plaques. Left le. Left iliac and common femoral arteries are patent. 2. Occlusion of the left fem-pop bypass graft. Abrupt caliber change of the graft at the proximal a nd distal anastomosis. 3. Reconstitution of the popliteal artery through collaterals. 4. Diminutive anterior tibial and peroneal arteries. 5. Diffuse concentric calcific plaques of the below-the- left knee arteries. RPTAT: BB .Valeria Angel MD, Date Time Electronically viewed and signed by .Valeria Angel MD, on 01/05/2017 15:33 .O/
--- NOTE | 2017-01-05 17:16 | PN ---
Date/Time of Note Date/Time of Note DATE: 01/05/17 TIME: 17:15 Assessment/Plan Lines/Catheters IV Catheter Type (from Nrsg): Peripheral IV Alvarado in Place (from Nrsg): Yes Assessment/Plan Chief Complaint/Hosp Course Peripheral vascular disease status post bypass grafting with kinking of the graft., occluded will need further workup when medically stable Problems: Subjective 24 Hr Interval Summary Constitutional: improved Pain Control: mild Exam/Review of Systems Vital Signs Vitals Vital Signs Date Time Temp Pulse Resp B/P Pulse Ox O2 Delivery O2 Flow Rate FiO2 01/05/17 16:45 98.7 114 18 203/96 99 Room Air Intake and Output 01/04/17 01/04/17 01/05/17 15:00 23:00 07:00 Intake Total 750 ml 882.5 ml 1570 ml Output Total 2900 ml 850 ml Balance 750 ml -2017.5 ml 720 ml Exam ENMT: mucosa pink and moist, nl external ears & nose, nl lips & teeth, nl nasal mucosa & septum Neck: non-tender, supple Respiratory: clear to auscultation, normal air movement Cardiovascular: nl pulses, regular rate and rhythm Results Result Diagram: 01/05/17 0443 01/05/17 0443 ALEXUS CAM MD Jan 05, 2017 17:16
[2017-01-05] MEDS ORDERED: PROPOFOL 40 ML ONE (17:30)
[2017-01-05] MEDS ORDERED: LIDOCAINE 2% (SDV) 5 ML INJ ONE (17:30)
--- NOTE | 2017-01-05 17:47 | CONS ---
Date/Time of Note Date/Time of Note DATE: 01/05/17 TIME: 17:42 Assessment/Plan Assessment/Plan Chief Complaint/Hosp Course REASON FOR CONSULTATION (CONS): Persistent nausea and vomiting HISTORY OF PRESENT ILLNESS 36-year-old female hospitalized with evidence of UTI and hydronephrosis. The patient has experienced significant and persistent nausea and vomiting. There is no hematemesis, melena or hematochezia. The patient is a poorly controlled diabetic. Also history of hypertension. Patient is already receiving Reglan and Protonix. We will evaluate endoscopically to rule out additional potentially treatable conditions such as gastroparesis, gastric outlet obstruction. REVIEW OF SYSTEMS: GASTROINTESTINAL AND LIVER: Positive for nausea, vomiting, abdominal pain. Negative for: Anorexia, dysphagia, odynophagia, pyrosis, regurgitation, early satiety, bloating, food intolerance, diarrhea, constipation, change in Bowel Habits, laxative use, hematemesis, melena, hematochezia, anorectal symptoms, incontinence, jaundice. GENERAL AND CONSTITUTIONAL: Negative for: Weakness, tiredness, fever, chills, weight loss, weight gain, skin lesions. New mass, adenopathy. HEENT: Negative for: Headaches, vision changes, icterus, hearing loss, dizziness , vertigo, earache, sore throat. CARDIOVASCULAR: Negative for: Chest pain, SOB, SHERMAN, orthopnea, palpitations, lightheadedness, edemas, claudication. RESPIRATORY: Negative for: SOB, cough, sputum production, hemoptysis, pleuritic chest pain, wheezing. GENITOURINARY: Negative for: Dysuria, hematuria, flank pain, urgency, nocturia, polyuria. MUSCULO-SKELETAL: Negative for: Bone pain, arthralgias, deformity, myalgias. HEMATOLOGIC-LYMPHATIC: Negative for: Echymosis, petechia, excessive bleeding, adenopathy, new mass. NEURO-PSYCHIATRIC: Negative for: Syncope, seizures, focal weakness, numbness, depression, anxiety, insomnia, hallucinations, delusions. [GYNECOLOGICAL: Negative for: Menorrhagia, irregular menses, dysmenorrheal, dyspareunia] PAST MEDICAL HISTORY: MEDICAL: Diabetes mellitus type 2 Hypertension UTI SURGICAL: [None] TRANSFUSIONS: [None] TATOOS: [None] HABITS: SMOKING: [Negative] ALCOHOL: [Negative] DRUGS: [Negative] MEDICATION HISTORY: [As noted] ALLERGIES: [No known allergies] FAMILY HISTORY: [Negative for gastrointestinal neoplasm, non contributory] PHYSICAL EXAMINATION: GENERAL: Well developed, well nourished, alert & oriented x 3, in no acute distress SKIN: No lesions, no stigmata chronic liver disease, no evidence of bleeding diathesis LYMPHATIC: No palpable lymphadenopathy. HEAD: Normocephalic, atraumatic, no tenderness. EYES: Pupils equal reactive to light and accommodation, full extraocular movements, sclera clear, non-icteric, no discharge. EARS/NOSE AND THROAT: Ears normal, nose normal, oropharynx normal, oral membranes well hydrated without lesions. NECK: Supple, no masses, thyroid normal, JVP within normal limits, carotids normal without bruits. CHEST: Inspection within normal limits, breasts grossly normal. CARDIOVASCULAR: Heart: Regular rate and rhythm, no murmurs, gallops or rubs. Peripheral pulses present within normal limits, no cyanosis, clubbing or edemas. No pulsatile abdominal mass RESPIRATORY: Lungs clear to auscultation and percussion, no wheezing, no rubs GASTROINTESTINAL AND LIVER: Abdomen: Soft, moderately tender epigastrium, non- distended, no hernias, no masses, no organomegaly, no ascites, no guarding, no rebound tenderness, normoactive bowel sounds. Rectal: Deferred GENITOURINARY: [Female genitalia within normal limits.] EXTREMITIES: No cyanosis, clubbing or edema. MUSCULO-SKELETAL: Gait and station within normal limits, range of motion adequate. [NEUROLOGIC: Cranial nerves II-XII intact, Motor within normal limits, Sensory within normal limits. Reflexes within normal limits. PSYCHIATRIC: Alert & oriented x 3, mood/affect/judgement adequate] IMPRESSION: Persistent nausea and vomiting Rule out PUD/GERD versus gastroparesis versus gastric outlet obstruction UTI/hydronephrosis Diabetes mellitus type 2 poorly controlled Hypertension DISCUSSION & RECOMMENDATIONS: Evaluate with EGD at this point further recommendation will depend on our findings. The procedure has been explained to the patient including risks, benefits and alternatives. She is agreeable to proceed DANYELL Burt's office Fax copy to Attn Medical Records Problems: Consultation Date/Type/Reason Admit Date/Time Jan 02, 2017 at 00:32 Social History Alcohol Use: none Smoking Status: Never smoker Drug Use: none Exam/Review of Systems Vital Signs Vitals Vital Signs Date Time Temp Pulse Resp B/P Pulse Ox O2 Delivery O2 Flow Rate FiO2 01/05/17 16:45 98.7 114 18 203/96 99 Room Air Intake and Output 01/04/17 01/04/17 01/05/17 15:00 23:00 07:00 Intake Total 750 ml 882.5 ml 1570 ml Output Total 2900 ml 850 ml Balance 750 ml -2017.5 ml 720 ml Results Result Diagram: 01/05/17 0443 01/05/17 0443 Results 24 hrs Laboratory Tests Test 01/04/17 17:49 01/04/17 20:17 01/05/17 04:43 01/05/17 08:05 Bedside Glucose 121 89 91 White Blood Count 7.6 Red Blood Count 3.81 L Hemoglobin 11.0 L Hematocrit 34.2 L Mean Corpuscular Volume 89.8 Mean Corpuscular Hemoglobin 28.9 L Mean Corpuscular Hemoglobin Concent 32.2 Red Cell Distribution Width 15.0 H Platelet Count 327 Mean Platelet Volume 10.9 H Neutrophils % 63.1 Lymphocytes % 24.7 Monocytes % 10.0 Eosinophils % 1.1 Basophils % 0.7 Nucleated Red Blood Cells % 0.0 Neutrophils # 4.8 Lymphocytes # 1.9 Monocytes # 0.8 Eosinophils # 0.1 Basophils # 0.1 Nucleated Red Blood Cells # 0.0 Sodium Level 138 Potassium Level 3.6 Chloride Level 111 H Carbon Dioxide Level 22 Anion Gap 9 Blood Urea Nitrogen 14 Creatinine 0.99 Glucose Level 90 # Calcium Level 8.1 L Test 01/05/17 10:35 01/05/17 12:14 01/05/17 17:12 Urine Test NEGATIVE Bedside Glucose 91 79 Medications Medications Current Medications Acetaminophen (Tylenol Tab) 650 mg Q6H PRN PO PAIN LEVEL 1-3 OR FEVER; Start at 03:00 Hydromorphone HCl (Dilaudid) 1 mg Q4H PRN IV SEVERE PAIN LEVEL 7-10 Last administered on 01/05/17t 07:57; Admin Dose 1 MG; Start 01/02/17 at 03:00 Diagnostic Test (Pha) (Accu-Chek) 1 ea 02 XX ; Start 01/03/17 at 02:00 Miscellaneous Information 1 ea NOTE XX ; Start 01/02/17 at 03:30 Glucose (Glutose) 15 gm Q15M PRN PO DECREASED GLUCOSE; Start 01/02/17 at 03:30 Glucose (Glutose) 22.5 gm Q15M PRN PO DECREASED GLUCOSE; Start 01/02/17 at 03: 30 Dextrose (D50w Syringe) 25 ml Q15M PRN IV DECREASED GLUCOSE; Start 01/02/17 at 03:30 Dextrose (D50w Syringe) 50 ml Q15M PRN IV DECREASED GLUCOSE; Start 01/02/17 at 03:30 Glucagon (Glucagen) 1 mg Q15M PRN IM DECREASED GLUCOSE; Start 01/02/17 at 03:30 Glucose 15 gm 15 gm Q15M PRN BUCCAL DECREASED GLUCOSE; Start 01/02/17 at 03:30 Metronidazole 100 ml @ 100 mls/hr Q8 IVPB Last administered on 01/05/17 13:21 ; Admin Dose 100 MLS/HR; Start 01/02/17 at 09:00 Levofloxacin/ Dextrose (Levaquin 750 Mg/ D5W 150 ml (Pmx)) 150 ml @ 100 mls/hr Q24H IVPB Last administered on 01/05/17 10:31; Admin Dose 100 MLS/HR; Start at 10:00 Hydralazine HCl (Apresoline) 10 mg Q6H PRN IV ELEVATED BLOOD PRESSURE Last administered on 01/03/17 22:06; Admin Dose 10 MG; Start 01/02/17 at 19:40 Ondansetron HCl (Zofran Inj) 4 mg Q4 PRN IV NAUSEA AND/OR VOMITING Last administered on 01/05/17 13:20; Admin Dose 4 MG; Start 01/02/17 at 21:51 Insulin Glargine (Lantus) 11 unit DAILY@08 SC Last administered on 01/05/17 08 :11; Admin Dose 11 UNIT; Start 01/04/17 at 08:00 Atorvastatin Calcium (Lipitor) 10 mg HS PO Last administered on 01/04/17 20:19 ; Admin Dose 10 MG; Start 01/03/17 at 21:00 Gemfibrozil 600 mg 600 mg BID PO Last administered on 01/05/17 08:03; Admin Dose 600 MG; Start 01/03/17 at 21:00 Ondansetron HCl/ Dextrose (Zofran Inj/D5W) 54 ml @ 108 mls/hr Q6H PRN IV NAUSEA AND/OR VOMITING; Start 01/03/17 at 20:30 Amlodipine Besylate 5 mg 5 mg DAILY PO Last administered on 01/05/17 07:58; Admin Dose 5 MG; Start 01/04/17 at 09:00 Sodium Chloride (NS) 1,000 ml @ 75 mls/hr [id number] IV Last administered on 01/05 08:03; Admin Dose 75 MLS/HR; Start 01/03/17 at 21:00 Clonidine (Catapres) 0.1 mg Q6H PRN PO ELEVATED BLOOD PRESSURE Last administered on 01/04/17 18:30; Admin Dose 0.1 MG; Start 01/03/17 at 23:30 Pantoprazole (Protonix Tab) 40 mg BID@06,18 PO Last administered on 01/05/17 05:11; Admin Dose 40 MG; Start 01/04/17 at 18:00 Metoclopramide HCl (Reglan) 10 mg Q6 IV Last administered on 01/05/17 12:17; Admin Dose 10 MG; Start 01/05/17 at 12:00 Linagliptin (Tradjenta) 5 mg DAILY PO ; Start 01/06/17 at 09:00 DANYELL BURT MD Jan 05, 2017 17:47
--- NOTE | 2017-01-05 17:51 | OPPN ---
Date/Time of Note Date/Time of Note DATE: 01/05/17 TIME: 17:47 Proc Note GI Procedure Date 01/05/17 Pre-procedure Diagnosis * Nausea and vomiting Post-procedure Diagnosis Impression: * Severe gastritis. Rule out H. pylori infection. Biopsies obtained * Otherwise normal EGD Plan: * Continue present regimen * Review pathology as soon as available * May need to increase Reglan to 15 or even 20 mg if symptoms persist * Considered nuclear medicine gastric emptying study if symptoms persist * Also consider the addition of erythromycin as a prokinetic agent . Procedure Performed: Endoscopy (With biopsies) Surgeon DANYELL AVELAR MD Epic Beacon Analyst none Anesthesia Type: MAC Anesthesiologist: GRETA BATISTA MD Tourniquet Time none EBL none Transfusion required none Biopsy 1: Gastric body and antrum/rule out H. pylori infection Grafts/Implants none Tubes/Drains none Complication(s) none Pt Condition post procedure: stable Disposition: PACU Indications: persistent vomiting Procedure Description After informed consent, with the patient/relatives understanding the procedure, its indications, potential risks and complications, including but not limited to : allergic reaction, bleeding, perforation or infection, and after all pertinent questions were answered to the patients satisfaction, the patient/ relatives signed witnessed informed consent. Following this, premedication was administered slowly IV push under careful cardiovascular and respiratory monitoring with pulse oximetry, automatic blood pressure, and biological science technician fish. Once the sedative effect was achieved the patient was place in the left lateral decubitus, the panendoscope was introduced and advanced under visual control. Careful examination of the upper gastrointestinal tract, both on insertion as well as withdrawal of the instrument disclosing the following findings: ESOPHAGUS: the mucosa of the entire esophagus was carefully examined and showed the following findings: the mucosa appears within normal limits. There is no evidence of esophagitis, varices, neoplasm, or stricture. No Hiatal Hernia identified. STOMACH: Upon entrance to the stomach air was insufflated, the gastric salgado distended normally. The mucosa of the fundus, body and antrum of the stomach was carefully examined both head-on and on retroflexion, and showed the following findings: There is severe erythema and edema of the mucosa body and antrum of the stomach. Biopsies were obtained to rule out H. pylori infection. Otherwise the mucosa appears within normal limits with no abnormalities. There is no evidence of ulcers or neoplasm. PYLORUS: The pylorus was carefully examined and showed the following findings: the pylorus appears patent and within normal limits, with no evidence of gastric outlet obstruction. DUODENUM: The duodenal mucosa was carefully examined in the duodenal bulb as well as the second portion of the duodenum and showed the following findings: the mucosa appears unremarkable with no evidence of duodenitis, ulcer or neoplasm. Copies To: CC: DANYELL AVELAR MD, MORDO MD Jan 05, 2017 17:51
--- NOTE | 2017-01-05 17:51 | HPN ---
Date/Time of Note Date/Time of Note DATE: 01/05/17 TIME: 17:51 Interval H&P Admission Note Pt. seen H&P reviewed: No system changes DANYELL AVELAR MD Jan 05, 2017 17:51
[2017-01-05] MEDS ORDERED: LABETALOL HCL 20MG INJ ONE (18:07)
[2017-01-05] MEDS ORDERED: LABETALOL HCL 20MG INJ IV ONE (18:30)
[2017-01-05] MEDS ORDERED: hydrALAzine 20 MG INJ IV ONE (19:30)
--- NOTE | 2017-01-05 19:58 | EN ---
Date/Time of Note Date/Time of Note DATE: 01/05/17 TIME: 19:53 Event Note Medicine Medicine Event Note Reviewed 's EGD findings. NM Gastric empty study ordered. Will consider Erythromycin if indicated after the study. patient also noted with high blood pressure and heart rate- Will start metoprolol and titrate up Amlodipine to 10 mg. Continue PRN BP meds. Patent needs to be monitored in telemetry. Case discussed with . ROMMEL BAUMANN NP Jan 05, 2017 19:58
[2017-01-05] MEDS: ATORVASTATIN 10 MG TAB PO SCH (21:46)
[2017-01-05] MEDS: METOPROLOL 25 MG TAB PO SCH (21:46)
[2017-01-05] MEDS: SOD CHLORIDE 0.45% 1,000 ML IV SCH (21:47)
[2017-01-05] MEDS: SUCRALFATE (100 MG/ML) 10ML CUP PO SCH (21:50)
[2017-01-06] VITALS (15 sets, daily range): BP systolic 121–183; BP diastolic 57–88; PULSE 95–121; RESP 18–20
[2017-01-06] MEDS: METOCLOPRAMIDE 10 MG INJ IV SCH ×4 (00:19→17:42)
[2017-01-06] MEDS: ACCU-CHEK XX SCH (02:00)
[2017-01-06] MEDS: ONDANSETRON 4 MG INJ IV PRN ×2 (04:48→09:24)
[2017-01-06] MEDS: hydrALAzine 20 MG INJ IV PRN (04:54)
[2017-01-06] MEDS: HYDROmorphONE 1 MG/ML SYG IV PRN (04:59)
[2017-01-06] MEDS: metroNIDAZOLE 500 MG/NS (PMX) 100 ML IVPB SCH ×2 (05:41→13:40)
[2017-01-06] MEDS: PANTOPRAZOLE (EC) 40 MG TAB PO SCH (05:41)
[2017-01-06] MEDS: INSULIN ASPART [NOVOLOG] 3 ML PEN SC SCH ×4 (07:35→20:23)
[2017-01-06] MEDS: INSULIN GLARGINE [LANtus] 3 ML PEN SC SCH (08:51)
--- NOTE | 2017-01-06 08:55 | PN ---
Date/Time of Note Date/Time of Note DATE: 01/06/17 TIME: 08:47 Assessment/Plan VTE Prophylaxis VTE Prophylaxis Intervention: ambulation Lines/Catheters IV Catheter Type (from Nrs): Peripheral IV Urinary Cath still in place: Yes Reason Cath still needed: other (indicate) Assessment/Plan Chief Complaint/Hosp Course 1. Poorly controlled diabetes with A1c 13.2. Rule out type I versus type II. -Obtain insulin antibodies. Continue Tradjenta, Lantus along with Accu-Cheks/ ISS. -Diabetic education requested. 2. Possible neurogenic bladder with poorly controlled diabetes.CT abdomen showed gas within the urinary bladder with hydronephrosis. No clinical evidence of UTI- Clinically improved after indwelling catheter placed. -Patient received total week IV antibiotics and at this time there is no need to continue antibiotics. - Repeat renal ultrasound with significant improvement with mild hydronephrosis on left. -Attempt to discontinue Alvarado cath and obtain postvoid residual. 3. Peripheral vascular disease. Status post bypass grafting with Occlusion of the right and left fem-pop bypass graft. CT aortogram with run off reviewed. - Vascular surgery eval appreciated- Plan id further work up possible intervention when medically stable-can be done a soitpt. -Aspirin daily. Add Plavix. 4. Intractable Nausea with vomiting, likley 2/2 severe gastritis vs possible diabetic gastroparesis with poorly controlled DM. CT without any acute inflammation. Improving. -GI eval appreciated. Status post EGD with severe gastritis-F/u pathology for H- pylori. -F/u NM gastric emptying study and consider starting erythromycin. -Keep patient n.p.o until symptoms improve. Continue PPIs, Reglan and Zofran PRN -Monitor lytes closely. 5. Hypertension. Now stable. -Continue metoprolol/ CCB . Due to fluctuating renal function, we would hold off to PEDRO inhibitor even though PEDRO inhibitor would be a better choice of hypertension management in patients with diabetes. Patient can be reevaluated as outpatient for need for starting on PEDRO inhibitor. 6. Hypercholesterolemia with significant triglyceridemia. -On statin and fibrates. 7.Severe gastritis. -Continue Protonix and carafatex6 weeks and outpt f/u with GI. Plan: Keep patient n.p.o. until symptoms improve. F/u NM GASTRIC EMPTY STUDY. Will also have case management arrange outpatient follow-up with . Will also have case management provide patient with resources for finding a primary care provider. Patient was seen in collaboration with Dr. Polanco. Problems: Subjective 24 Hr Interval Summary Free Text/Dictation Patient with ongoing vomiting. Abdominal pain improved. Status post endoscopy. Exam/Review of Systems Vital Signs Vitals Vital Signs Date Time Temp Pulse Resp B/P Pulse Ox O2 Delivery O2 Flow Rate FiO2 01/06/17 08:00 121 01/06/17 07:09 98.5 18 135/73 96 01/05/17 21:09 Room Air 01/05/17 20:30 2.0 Intake and Output 01/05/17 01/05/17 01/06/17 14:59 22:59 06:59 Intake Total 400 ml 1045 ml 1290 ml Output Total 1700 ml 2600 ml Balance 400 ml -655 ml -1310 ml Exam General: Well developed,adequately built, not in any acute distress . HEENT: Normocephalic, Atraumatic, No laceration or hematoma; Eyes: PEERL, Conjunctiva clear, Anicteric sclera Neck: Supple without any lymphadenopathy, nontender, no JVD, no carotid bruits, trachea midline, no thyromegaly Cardiac: S1, S2 auscultated, regular rhythm and rate, no mumurs or gallop Pulmonary: Normal respiratory effort. Chest clear to auscultation bilaterally, no adventitious breath sounds GI: +nausea/vomiting. Soft, non- distended, no masses, no rebound tenderness or guarding. Bowel sounds active on all four quadrants Genitourinary: With suprapubic tenderness. Extremities: Pain on calves+.No cyanosis, clubbing, or edema. Pulses [2+] bilaterally. Full ROM on all four extremities. No focal weakness appreciated. Neurologic: Alert to person, place, time, and situation. Affect appropriate, intact sensation. Skin: Clean,dry, and intact. No ecchymosis, no rashes, or lesions Results Result Diagram: 01/05/17 0443 01/05/17 0443 Results 24 hrs Laboratory Tests Test 01/05/17 10:35 01/05/17 12:14 01/05/17 17:12 01/05/17 20:14 Urine Test NEGATIVE Bedside Glucose 91 79 122 Test 01/06/17 07:30 Bedside Glucose 99 Medications Medications Current Medications Acetaminophen (Tylenol Tab) 650 mg Q6H PRN PO PAIN LEVEL 1-3 OR FEVER Last administered on 01/05/17 21:23; Admin Dose 650 MG; Start 01/02/17 at 03:00 Hydromorphone HCl (Dilaudid) 1 mg Q4H PRN IV SEVERE PAIN LEVEL 7-10 Last administered on 01/06/17 04:59; Admin Dose 1 MG; Start 01/02/17 at 03:00 Diagnostic Test (Pha) (Accu-Chek) 1 ea 02 XX ; Start 01/03/17 at 02:00 Miscellaneous Information 1 ea NOTE XX ; Start 01/02/17 at 03:30 Glucose (Glutose) 15 gm Q15M PRN PO DECREASED GLUCOSE; Start 01/02/17 at 03:30 Glucose (Glutose) 22.5 gm Q15M PRN PO DECREASED GLUCOSE; Start 01/02/17 at 03: 30 Dextrose (D50w Syringe) 25 ml Q15M PRN IV DECREASED GLUCOSE; Start 01/02/17 at 03:30 Dextrose (D50w Syringe) 50 ml Q15M PRN IV DECREASED GLUCOSE; Start 01/02/17 at 03:30 Glucagon (Glucagen) 1 mg Q15M PRN IM DECREASED GLUCOSE; Start 01/02/17 at 03:30 Glucose 15 gm 15 gm Q15M PRN BUCCAL DECREASED GLUCOSE; Start 01/02/17 at 03:30 Metronidazole 100 ml @ 100 mls/hr Q8 IVPB Last administered on 01/06/17 05:41 ; Admin Dose 100 MLS/HR; Start 01/02/17 at 09:00 Levofloxacin/ Dextrose (Levaquin 750 Mg/ D5W 150 ml (Pmx)) 150 ml @ 100 mls/hr Q24H IVPB Last administered on 01/05/17 10:31; Admin Dose 100 MLS/HR; Start at 10:00 Hydralazine HCl (Apresoline) 10 mg Q6H PRN IV ELEVATED BLOOD PRESSURE Last administered on 01/06/17 04:54; Admin Dose 10 MG; Start 01/02/17 at 19:40 Ondansetron HCl (Zofran Inj) 4 mg Q4 PRN IV NAUSEA AND/OR VOMITING Last administered on 01/06/17 04:48; Admin Dose 4 MG; Start 01/02/17 at 21:51 Insulin Glargine (Lantus) 11 unit DAILY@08 SC Last administered on 01/05/17 08 :11; Admin Dose 11 UNIT; Start 01/04/17 at 08:00 Atorvastatin Calcium (Lipitor) 10 mg HS PO Last administered on 01/05/17 21:46 ; Admin Dose 10 MG; Start 01/03/17 at 21:00 Gemfibrozil 600 mg 600 mg BID PO Last administered on 01/05/17 21:46; Admin Dose 600 MG; Start 01/03/17 at 21:00 Ondansetron HCl/ Dextrose (Zofran Inj/D5W) 54 ml @ 108 mls/hr Q6H PRN IV NAUSEA AND/OR VOMITING; Start 01/03/17 at 20:30 Clonidine (Catapres) 0.1 mg Q6H PRN PO ELEVATED BLOOD PRESSURE Last administered on 01/04/17 18:30; Admin Dose 0.1 MG; Start 01/03/17 at 23:30 Pantoprazole (Protonix Tab) 40 mg BID@06,18 PO Last administered on 01/06/17 05:41; Admin Dose 40 MG; Start 01/04/17 at 18:00 Metoclopramide HCl (Reglan) 10 mg Q6 IV Last administered on 01/06/17 06:09; Admin Dose 10 MG; Start 01/05/17 at 12:00 Linagliptin (Tradjenta) 5 mg DAILY PO ; Start 01/06/17 at 09:00 Sucralfate (Carafate Susp) 1 gm QID PO Last administered on 01/05/17 21:50; Admin Dose 1 GM; Start 01/05/17 at 21:00 Amlodipine Besylate (Norvasc) 10 mg DAILY PO ; Start 01/06/17 at 09:00 Metoprolol Tartrate (Lopressor) 25 mg BID PO Last administered on 01/05/17 21: 46; Admin Dose 25 MG; Start 01/05/17 at 21:00 Aspirin 81 mg 81 mg DAILY PO ; Start 01/06/17 at 09:00 Sodium Chloride (1/2 NS) 1,000 ml @ 75 mls/hr [id number] IV Last administered on 9/27/17at 21:47; Admin Dose 75 MLS/HR; Start 01/05/17 at 20:30 ROMMEL BAUMANN NP Jan 06, 2017 08:55
[2017-01-06] MEDS: METOPROLOL 25 MG TAB PO SCH ×2 (09:00→20:18)
[2017-01-06] MEDS: ASPIRIN 81 MG TAB PO SCH (09:00)
[2017-01-06] MEDS: GEMFIBROZIL 600 MG TAB PO SCH ×2 (09:00→20:17)
[2017-01-06] MEDS: LINAGLIPTIN 5 MG TABLET PO SCH (09:00)
[2017-01-06] MEDS: AMLODIPINE 10 MG TAB PO SCH (09:00)
[2017-01-06] MEDS: CLOPIDOGREL 75 MG TAB PO SCH (09:00)
[2017-01-06] MEDS: SUCRALFATE (100 MG/ML) 10ML CUP PO SCH ×4 (09:00→20:17)
[2017-01-06] MEDS: LEVOFLOXACIN 750MG/D5W (PMX) 150 ML IVPB SCH (09:24)
[2017-01-06] MEDS: SOD CHLORIDE 0.45% 1,000 ML IV SCH ×2 (09:50→22:38)
--- NOTE | 2017-01-06 12:51 | RADRPT ---
PROCEDURE: Nuclear medicine gastric emptying study CLINICAL INDICATION: Rule out gastroparesis TECHNIQUE: Nuclear medicine gastric emptying study was performed following the uncomplicated inges tion of 1.0 mCi of technetium 99m sulfur colloid. Planar imaging of the abdomen and stomach was per formed. Time activity curves were plotted on a graph. Images were reviewed on a high-resolution [employer] workstation. COMPARISON: None available FINDINGS: There is normal gastric emptying from the stomach. The T1/2 is approximately 54 minutes, within the normal limits of less than 90 minutes. There is appropriate emptying from the stomach to the small bowel. IMPRESSION: 1. Negative gastric emptying study with normal passage of radiotracer from the stomach into the pro ximal small bowel. RPTAT: QQ Physician Brandin Date Time Electronically viewed and signed by Physician Brandin on 01/06/2017 12:51 /
--- NOTE | 2017-01-06 14:41 | RADRPT ---
Echocardiogram Report Patient Name: OLIVIER CASON Gender: Female Date: 1980 Study Date: 06-Jan-2017 Product Designer: Emily [facility] Location: 512-A Ref. Physician: ROMMEL BAUMANN Quality: Adequate Procedures: Transthoracic echocardiogram with complete 2D, M-Mode, and doppler examination. Indications: HTN urgency. 2D/M Mode Doppler Measurement Value Normal Ranges Measurement Value Normal Ranges LVIDd 2D 3.2 3.5 - 5.6 cm AV Peak Paco 1.1 m/sec LVIDs 2D 2.2 2.1 - 4.1 cm AV Peak PG 5.0 mmHg FS 2D 32.2 % LVOT Peak Paco 0.8 m/sec LVPWd 2D 1.3 0.6 - 1.1 cm LVOT Peak PG 2.0 mmHg IVSd 2D 1.3 0.6 - 1.1 cm MV E Peak Paco 1.1 m/sec IVS/LVPW 2D 1.0 MV Decel Time 67 msec AoR Diam 2D 2.6 2.0 - 3.7 cm LA/Ao 2D 2 0 - 1 EDV 2D 32.8 cm3 ESV 2D 10.2 cm3 LA Dimen 2D 4.0 2.3 - 4.0 cm Findings Left Ventricle: Overall, normal left ventricular systolic function. Not all segments visualized. Normal left ventricular cavity size. Mild concentric left ventricular hypertrophy. Ejection fraction is visually estimated at 60 %. Right Ventricle: Normal right ventricular size. Normal right ventricular systolic function. Left Atrium: There is mild enlargement of left atrium. Right Atrium: The right atrium is normal in size. Mitral Valve: Mild mitral leaflet calcification. Mild mitral annular calcification. Trace mitral regurgitation. Aortic Valve: No significant aortic stenosis or insufficiency. Aortic cusps appear mildly calcified. Tricuspid Valve: Normal appearance and function of the tricuspid valve with trace physiologic regurgitation. Pulmonic Valve: Pulmonic valve not well visualized. There is trace pulmonic regurgitation. Pericardium: Normal pericardium with no significant pericardial effusion. Aorta: Normal aortic root. IVC: Normal size and normal respiratory collapse consistent with normal right atrial pressure. Conclusions 1.Overall, normal left ventricular systolic function. Not all segments visualized. Normal left ventricular cavity size. Mild concentric left ventricular hypertrophy. Ejection fraction is visually estimated at 60 %. 2.Normal right ventricular size. Normal right ventricular systolic function. 3.There is mild enlargement of left atrium. 4.The right atrium is normal in size. 5.No significant valvular stenosis or regurgitation seen. 6.Normal pericardium with no significant pericardial effusion. Electronically Signed By: Paulo Rooney 06-Jan-2017 14:41:20 -0700 Patient Name: OLIVIER CASON Study Date: 06-Jan-2017 [id number]
--- NOTE | 2017-01-06 17:20 | PN ---
Date/Time of Note Date/Time of Note DATE: 01/06/17 TIME: 17:17 Assessment/Plan VTE Prophylaxis VTE Prophylaxis Intervention: SCD's Lines/Catheters IV Catheter Type (from Nrsg): Peripheral IV Urinary Cath still in place: No Assessment/Plan Assessment/Plan Persistent nausea and vomiting Rule out PUD/GERD versus gastroparesis versus gastric outlet obstruction UTI/hydronephrosis Diabetes mellitus type 2 poorly controlled Hypertension Plan continue present management case discussed with Dr Carmel freire orders will depend on clinical course Subjective 24 Hr Interval Summary Free Text/Dictation * Course reviewed * patient seen and examined * on and off vomiting * EGD Severe gastritis. Rule out H. pylori infection. Biopsies obtained Otherwise normal EGD Exam/Review of Systems Vital Signs Vitals Vital Signs Date Time Temp Pulse Resp B/P Pulse Ox O2 Delivery O2 Flow Rate FiO2 01/06/17 16:00 115 01/06/17 15:06 98.5 18 154/77 96 01/05/17 21:09 Room Air 01/05/17 20:30 2.0 Intake and Output 01/05/17 01/05/17 01/06/17 15:00 23:00 07:00 Intake Total 400 ml 1045 ml 1290 ml Output Total 1700 ml 2600 ml Balance 400 ml -655 ml -1310 ml Exam Constitutional: alert, frail Neck: non-tender, supple Respiratory: clear to auscultation, normal air movement Cardiovascular: nl pulses, regular rate and rhythm Gastrointestinal: non-tender, soft Extremities: normal pulses Neurological: nl mental status Results Result Diagram: 01/05/17 0443 01/05/17 0443 Results 24 hrs Laboratory Tests Test 01/05/17 20:14 01/06/17 07:30 01/06/17 12:11 01/06/17 16:58 Bedside Glucose 122 99 117 130 Medications Medications Current Medications Acetaminophen (Tylenol Tab) 650 mg Q6H PRN PO PAIN LEVEL 1-3 OR FEVER Last administered on 01/05/17 21:23; Admin Dose 650 MG; Start 01/02/17 at 03:00 Hydromorphone HCl (Dilaudid) 1 mg Q4H PRN IV SEVERE PAIN LEVEL 7-10 Last administered on 01/06/17 04:59; Admin Dose 1 MG; Start 01/02/17 at 03:00 Diagnostic Test (Pha) (Accu-Chek) 1 ea 02 XX ; Start 01/03/17 at 02:00 Miscellaneous Information 1 ea NOTE XX ; Start 01/02/17 at 03:30 Glucose (Glutose) 15 gm Q15M PRN PO DECREASED GLUCOSE; Start 01/02/17 at 03:30 Glucose (Glutose) 22.5 gm Q15M PRN PO DECREASED GLUCOSE; Start 01/02/17 at 03: 30 Dextrose (D50w Syringe) 25 ml Q15M PRN IV DECREASED GLUCOSE; Start 01/02/17 at 03:30 Dextrose (D50w Syringe) 50 ml Q15M PRN IV DECREASED GLUCOSE; Start 01/02/17 at 03:30 Glucagon (Glucagen) 1 mg Q15M PRN IM DECREASED GLUCOSE; Start 01/02/17 at 03:30 Glucose 15 gm 15 gm Q15M PRN BUCCAL DECREASED GLUCOSE; Start 01/02/17 at 03:30 Metronidazole 100 ml @ 100 mls/hr Q8 IVPB Last administered on 01/06/17 13:40 ; Admin Dose 100 MLS/HR; Start 01/02/17 at 09:00 Levofloxacin/ Dextrose (Levaquin 750 Mg/ D5W 150 ml (Pmx)) 150 ml @ 100 mls/hr Q24H IVPB Last administered on 01/06/17 09:24; Admin Dose 100 MLS/HR; Start at 10:00 Hydralazine HCl (Apresoline) 10 mg Q6H PRN IV ELEVATED BLOOD PRESSURE Last administered on 01/06/17 04:54; Admin Dose 10 MG; Start 01/02/17 at 19:40 Ondansetron HCl (Zofran Inj) 4 mg Q4 PRN IV NAUSEA AND/OR VOMITING Last administered on 01/06/17 09:24; Admin Dose 4 MG; Start 01/02/17 at 21:51 Insulin Glargine (Lantus) 11 unit DAILY@08 SC Last administered on 01/06/17 08 :51; Admin Dose 11 UNIT; Start 01/04/17 at 08:00 Atorvastatin Calcium (Lipitor) 10 mg HS PO Last administered on 01/05/17 21:46 ; Admin Dose 10 MG; Start 01/03/17 at 21:00 Gemfibrozil 600 mg 600 mg BID PO Last administered on 01/05/17 21:46; Admin Dose 600 MG; Start 01/03/17 at 21:00 Ondansetron HCl/ Dextrose (Zofran Inj/D5W) 54 ml @ 108 mls/hr Q6H PRN IV NAUSEA AND/OR VOMITING; Start 01/03/17 at 20:30 Clonidine (Catapres) 0.1 mg Q6H PRN PO ELEVATED BLOOD PRESSURE Last administered on 01/04/17 18:30; Admin Dose 0.1 MG; Start 01/03/17 at 23:30 Pantoprazole (Protonix Tab) 40 mg BID@06,18 PO Last administered on 01/06/17 05:41; Admin Dose 40 MG; Start 01/04/17 at 18:00 Metoclopramide HCl (Reglan) 10 mg Q6 IV Last administered on 01/06/17 12:47; Admin Dose 10 MG; Start 01/05/17 at 12:00 Linagliptin (Tradjenta) 5 mg DAILY PO ; Start 01/06/17 at 09:00 Sucralfate (Carafate Susp) 1 gm QID PO Last administered on 01/06/17 16:58; Admin Dose 1 GM; Start 01/05/17 at 21:00 Amlodipine Besylate (Norvasc) 10 mg DAILY PO ; Start 01/06/17 at 09:00 Metoprolol Tartrate (Lopressor) 25 mg BID PO Last administered on 01/05/17 21: 46; Admin Dose 25 MG; Start 01/05/17 at 21:00 Aspirin 81 mg 81 mg DAILY PO ; Start 01/06/17 at 09:00 Sodium Chloride (1/2 NS) 1,000 ml @ 75 mls/hr [id number] IV Last administered on 01/05/17 21:47; Admin Dose 75 MLS/HR; Start 01/05/17 at 20:30 Clopidogrel Bisulfate (plaVIX) 75 mg DAILY PO ; Start 01/06/17 at 09:00 Erythromycin (Erythromycin Base (Ec)) 500 mg Q8 PO ; Start 01/06/17 at 22:00 GAY AMBRIZ NP Jan 06, 2017 17:20
[2017-01-06] MEDS: PANTOPRAZOLE 40 MG INJ IV SCH (17:38)
[2017-01-06] MEDS: ATORVASTATIN 10 MG TAB PO SCH (20:16)
[2017-01-06] MEDS: ERYTHROMYCIN BASE (EC) 500 MG TAB PO SCH (21:46)
[2017-01-07] VITALS (11 sets, daily range): BP systolic 108–178; BP diastolic 69–88; PULSE 85–103; RESP 18–19
[2017-01-07] MEDS: METOCLOPRAMIDE 10 MG INJ IV SCH ×4 (00:26→17:58)
[2017-01-07] MEDS: HYDROmorphONE 1 MG/ML SYG IV PRN ×2 (00:26→08:32)
[2017-01-07] MEDS: ACCU-CHEK XX SCH (01:19)
[2017-01-07] MEDS: PANTOPRAZOLE 40 MG INJ IV SCH ×2 (05:47→17:38)
[2017-01-07] MEDS: ERYTHROMYCIN BASE (EC) 500 MG TAB PO SCH ×2 (05:47→13:56)
[2017-01-07] MEDS: INSULIN ASPART [NOVOLOG] 3 ML PEN SC SCH ×3 (07:44→17:38)
[2017-01-07] MEDS: INSULIN GLARGINE [LANtus] 3 ML PEN SC SCH (07:47)
[2017-01-07] MEDS: SUCRALFATE (100 MG/ML) 10ML CUP PO SCH ×3 (08:32→17:37)
[2017-01-07] MEDS: ONDANSETRON 4 MG INJ IV PRN (08:32)
[2017-01-07] MEDS: ASPIRIN 81 MG TAB PO SCH (08:33)
[2017-01-07] MEDS: METOPROLOL 25 MG TAB PO SCH (08:33)
[2017-01-07] MEDS: CLOPIDOGREL 75 MG TAB PO SCH (08:33)
[2017-01-07] MEDS: AMLODIPINE 10 MG TAB PO SCH (08:33)
[2017-01-07] MEDS: LINAGLIPTIN 5 MG TABLET PO SCH (08:33)
[2017-01-07] MEDS: GEMFIBROZIL 600 MG TAB PO SCH (08:33)
[2017-01-07] MEDS ORDERED: LISINOPRIL 10 MG TAB PO SCH (11:00)
--- NOTE | 2017-01-07 11:15 | DS ---
Date/Time of Note Date/Time of Note DATE: 01/07/17 TIME: 11:06 Discharge Summary Admission/Discharge Info Admit Date/Time Jan 02, 2017 at 08:26 Discharge Date/Time Discharge Diagnosis 1. Poorly controlled diabetes with A1c 13.2., likely adult onset diabetes. Pending test for DM1 2. Possible neurogenic bladder with poorly controlled diabetes. 3. Peripheral vascular disease. Status post bypass grafting with Occlusion of the right and left fem-pop bypass graft- needs outpatient vascular follow-up. 4. Intractable Nausea with vomiting, likley 2/2 severe gastritis vs possible diabetic gastroparesis with poorly controlled DM. 5. Escalated Hypertension. 6. Hypercholesterolemia with significant triglyceridemia. 7.Severe gastritis. 8. Noncompliance with poor access to care. 9. Diabetic neuropathy. 10.Risk for depression with lack of social support system-recommended outpatient psychosocial evaluation. Patient Condition: Stable Consults ,vascular ,GI Procedures 01/05/2017. Endoscopy. Severe gastritis 01/06/2017. Nuclear medicine gastric imaging study. Negative gastric emptying study with normal passage of radiotracer from the stomach into the proximal small bowel. 01/05/17. CT aortography with runoff IMPRESSION: Vascular: 1. Mild atherosclerotic changes of the abdominal aorta with no aneurysmal dilatation significant stenosis. 2. Mesenteric arteries and renal arteries are patent with no significant ostial stenosis. Right le. Right iliac and common femoral arteries are patent. 2. Occlusion of the right fem-pop bypass graft. Abrupt caliber change of the graft at the distal anastomosis. 3. Reconstitution of the popliteal artery through collaterals. 4. Diffuse concentric calcific plaques involving the below-the- right knee arteries. 5. Suggestion of moderate stenosis at the proximal aspect of the anterior tibial artery and posterior tibial artery. The assessment of the stenosis is limited due to concentric calcific nature of the plaques. Left le. Left iliac and common femoral arteries are patent. 2. Occlusion of the left fem-pop bypass graft. Abrupt caliber change of the graft at the proximal and distal anastomosis. 3. Reconstitution of the popliteal artery through collaterals. 4. Diminutive anterior tibial and peroneal arteries. 5. Diffuse concentric calcific plaques of the below-the- left knee arteries. Hospital Course This is a very unfortunate 36 year old Vincentian-speaking female with a past medical history of type 2 diabetes,diabetic neuropathy, severe peripheral vascular disease with status post bilateral femoropopliteal bypass graft, hypertension, who presented to the emergency room with complaints of suprapubic pain associated with nausea and vomiting. She did not have any dysuria, hematuria, urinary frequency or urgency.She also had claudication of lower extremities. Patient denied any dysuria, hematuria, frequency or urgency. Apparently, she was dealing with recent life stressors and poor access to care. Patient has been not taking any medication for her underlying comorbid conditions including her diabetes. She did not have a PCP. Initial examination showed suprapubic tenderness. A CT abdomen and pelvis showed gas within the urinary bladder which is concerning for underlying infection. Patient also had hyperglycemia upon presentation. A clinical decision was made to admit patient after discussion with the urology colleagues for hydration and IV antibiotics. Patient was continued on IV antibiotics and fluids. Apparently, she was noted with poorly controlled diabetes with A1c 13.2. She was continued on lantus,ISS, premeals with good glycemic control. With the findings of A1c of 13.2 in a patient with poor compliance, it is likely that her symptoms were secondary to neurogenic bladder which also showed as gas in the urinary bladder in the CT scan. This was resolved with insertion of Alvarado catheter. There was no evidence of urinary tract infection. Patient did not have any dysuria, hematuria, or pneumaturia to suggest any emphysematous cystitis. CTA on 01/05/17 revealed normal appearance of urinary bladder in contrast to the initial CT which showed possible gas in bladder, this leads high possibility of neurogenic bladder which was treated with placing Alvarado with adequate emptying of bladder. She was also having escalated hypertension ranging from SBP 170-200s. She was started on antihypertensives. Initially, patient was started on calcium channel kevan with addition of metoprolol even though she would have benefited from pedro inhibitors based on her diabetes. As her renal function was fluctuating, PEDRO inhibitors were not appropriate choice initially. Her renal function was monitored closely and remained stable. She was also transferred to telemetry as she was noted with tachycardia and escalated hypertension. Her cultures were negative for any signs of urinary tract infection and patient also did not have any clinical symptoms of UTI. Therefore, patient did not require any further continuation of IV antibiotics. She received a total of 7 days IV antibiotics. During the course of hospitalization, patient was noted with intractable nausea and vomiting. She had a gastroenterology consultation and had undergone endoscopy with findings of severe gastritis. Patient was continued on PPI, prokinetics including Reglan and Zofran. It is likely that patient symptoms are secondary to her poorly controlled diabetes with decreased GI motility. NM gastric emptying study was not suggestive of gastroparesis, however she had clinical manifestation of possible GI motility issues with underlying DM. She was also started on additional erythromycin. Due to GI upset, she was not ideal candidate for Metformin-therefore she was started on tadjenta to decrease insulin tolerance with her outside lifestyle with poor compliance and lack of care. Blood sugar remained stable on tradjenta and Lantus. Though patient reported that she was diagnosed with DMII 8 yrs ago, suspicion was also high at possible type1 DM ,therefore insulin antibody tests were ordered. In regards to peripheral vascular disease, we also had to the ultrasound and CT aortography with runoff which revealed occlusion of bilateral femoral arteries with suggestion of kinking of the graft. Patient was evaluated by vascular surgery. Recommendation was to see patient as outpatient for further tests and possible intervention once medically stable. Patient was also started on Plavix and aspirin. Patient was also noted with hypercholesterolemia with significant triglyceridemia, for which she was started on statin and fibroids. Alvarado catheter removed. Patient was able to void without any difficulties. Her suprapubic tenderness was completely resolved. Postvoid residual was 0ml. Symptoms improved. She did not have any further suprapubic tenderness or urinary symptoms. Nausea and vomiting also improved and she was able to tolerate diet. Patient's blood pressure also remained stable thereafter. Her renal function also stable and therefore she was switched to lisinopril (Choice of BP management in DM) with continuation of metoprolol. At this time, there is no need for inpatient workup. Upon discharge , for management of diabetes, recommendation was to start glipizide as Tradjenta is expensive and to continue Lantus. We will also follow-up with recommendations from diabetic counselor. Diabetes education, case management and social service coordinator spoke with patient and provided with resources for finding primary care doctor as well as following up with diabetic clinic as outpatient and that she find a primary care doctor. She was also asked to follow-up with for vascular follow-up. Patient was given all the instruction using Vincentian translation and she verbalized discharge instructions. I have also recommended that she may benefit from outpatient psychosocial evaluation/therapy to deal with possible psychiatric illness that she can develop with her current lack of support system. Patient verbalized her understanding that sequela of all her conditions are secondary to her poorly controlled diabetes, hypertension and hypercholesterolemia which she will take into priority and will continue treatment. At this time, DM education is pending and I had instructed RN or DM educator to call hospitalist #[phone] with any further recommendation/changes needed for outpt DM management.I have also requested to provide patient with glucometer and supplies. I have also requested CM for refilling meds in house if possible. Disposition: Home. Approximately 60 minutes was spent on coordinate discharge on this patient. Patient was seen in collaboration with Dr. Polanco. Home Meds Active Scripts Insulin Glargine* (Lantus*) 100 Unit/Ml Soln, 11 UNIT SC DAILY@08, #1 SYR Prov:ROMMEL BAUMANN V. GEOPHYSICAL OBSERVER 01/07/17 Glipizide* (Glipizide*) 5 Mg Tablet, 5 MG PO DAILY, #60 TAB Prov:BAUMANNROMMEL V. GEOPHYSICAL OBSERVER 01/07/17 Sucralfate* (Carafate*) 1 Gm/10 Ml Susp, 1 GM PO QID, #120 TAB Prov:BAUMANNROMMEL V. GEOPHYSICAL OBSERVER 01/07/17 Pantoprazole* (Protonix*) 40 Mg Tablet., 40 MG PO BID, #120 TAB Prov:BAUMANNROMMEL V. GEOPHYSICAL OBSERVER 01/07/17 Ondansetron Hcl* (Zofran*) 4 Mg Tablet, 4 MG PO Q6H Y for NAUSEA AND OR VOMITING , #60 TAB Prov:BAUMANNROMMEL CLARK V. GEOPHYSICAL OBSERVER 01/07/17 Metoclopramide* (Reglan*) 10 Mg Tablet, 10 MG PO TID, #60 TAB Prov:BAUMANNKRYSTAA V. GEOPHYSICAL OBSERVER 01/07/17 Aspirin (Aspirin) 81 Mg Chew, 81 MG PO DAILY, #60 TAB Prov:BAUMANNROMMEL V. GEOPHYSICAL OBSERVER 01/07/17 Metoprolol Tartrate* (Lopressor*) 25 Mg Tab, 25 MG PO BID, #120 TAB Prov:BAUMANNROMMEL V. GEOPHYSICAL OBSERVER 01/07/17 Lisinopril* (Lisinopril*) 10 Mg Tablet, 10 MG PO DAILY, #60 TAB Prov:KRYSTA BAUMANNA V. GEOPHYSICAL OBSERVER 01/07/17 Gemfibrozil* (Gemfibrozil*) 600 Mg Tablet, 600 MG PO BID, #60 TAB Prov:BAUMANNMADDIEROMMEL V. GEOPHYSICAL OBSERVER 01/07/17 Atorvastatin (Atorvastatin) 10 Mg Tablet, 10 MG PO HS, #60 TAB Prov:BAUMANN,ROMMEL V. GEOPHYSICAL OBSERVER 01/07/17 Clopidogrel Bisulfate (Clopidogrel) 75 Mg Tablet, 75 MG PO DAILY, #60 TAB Prov:BAUMANN,ROMMEL V. GEOPHYSICAL OBSERVER 01/07/17 Erythromycin (Erythromycin) 500 Mg Tabec, 500 MG PO Q8, #60 TAB Prov:BAUMANN,ROMMEL V. GEOPHYSICAL OBSERVER 01/07/17 Acetaminophen* (Tylophen*) 500 Mg Capsule, 1 CAP PO Q6H Y for PAIN AND OR ELEVATED TEMP, #20 CAP Prov:DEBBY TOVAR PA-C 09/12/16 Discontinued Reported Medications [Denies] No Conflict Check 05/15/12 [Unknown Dm Meds] No Conflict Check 06/17/10 Follow-up Plan HOME CARE INSTRUCTIONS: Your diet recommendation is: Carbohydrate controlled, low-cholesterol, low-fat diet FOLLOW UP/APPOINTMENTS Follow-up Plan 1.Follow up with primary care physician in 1 week-she was provided with resources for finding primary care doctor. If you don't have one please let someone know, we can give you resources that may help you pick one. You may also call your insurance company to assign one to you. Review your medication list with your nurse before leaving and if you need new prescriptions please let your nurse know. I may have made changes to your home medications or given you new prescriptions, please let your primary doctor know as well. Stay compliant with your medications and report any side effects to your PCP or pharmacist. Return to the ER if you have any concerns and cannot reach your doctors or call your insurance company, they usually have a nurse that can help you. 2. Call 911 or go to the nearest emergency room if experiencing loss of consciousness, dizziness, chest pain, shortness of breath, vomiting/abdominal pain, speech difficulties, motor weakness or any unusual symptoms. 3. Follow-up with as outpatient. [address] [facility] [place] [address] Office Office Primary Care Provider Mark Beatty Pending Labs Laboratory Tests Test 01/06/17 12:11 01/06/17 16:58 01/06/17 20:22 01/07/17 07:43 Bedside Glucose 117mg/dL (70-220) 130mg/dL (70-220) 164mg/dL (70-220) 103mg/dL (70-220) ROMMEL BAUMANN V. GEOPHYSICAL OBSERVER Jan 07, 2017 11:15
[2017-01-07] MEDS ORDERED: GEMF600T60 PO (11:23)
[2017-01-07] MEDS ORDERED: CLOP75TA28 PO (11:23)
[2017-01-07] MEDS ORDERED: ATOR10TA65 PO (11:23)
[2017-01-07] MEDS ORDERED: LISI10TA2 PO (11:23)
[2017-01-07] MEDS ORDERED: ERYT500 PO (11:23)
[2017-01-07] MEDS ORDERED: METO-448 PO (11:24)
[2017-01-07] MEDS ORDERED: METO10TA92 PO (11:24)
[2017-01-07] MEDS ORDERED: ASPI81TA3 PO (11:24)
[2017-01-07] MEDS ORDERED: CARAS PO (11:24)
[2017-01-07] MEDS ORDERED: PANT40TA3 PO (11:24)
[2017-01-07] MEDS ORDERED: ONDA4TAB8 PO (11:24)
[2017-01-07] MEDS ORDERED: GLIP5TAB13 PO (11:24)
[2017-01-07] MEDS ORDERED: LANT3I SC (11:24)
[2017-01-07] MEDS: SOD CHLORIDE 0.45% 1,000 ML IV SCH (12:30)
--- NOTE | 2017-01-07 17:21 | PN ---
Date/Time of Note Date/Time of Note DATE: 01/07/17 TIME: 17:18 Assessment/Plan VTE Prophylaxis VTE Prophylaxis Intervention: SCD's Lines/Catheters IV Catheter Type (from Nrsg): Peripheral IV Urinary Cath still in place: No Assessment/Plan Assessment/Plan Assessment/Plan Persistent nausea and vomiting gastroparesis UTI/hydronephrosis Diabetes mellitus type 2 poorly controlled Hypertension Plan stable for outpatient management continue present management case discussed with Dr Carmel freire orders will depend on clinical course Subjective 24 Hr Interval Summary Free Text/Dictation * course reviewed * Patient seen and examined * No untoward events overnight Exam/Review of Systems Vital Signs Vitals Vital Signs Date Time Temp Pulse Resp B/P Pulse Ox O2 Delivery O2 Flow Rate FiO2 01/07/17 16:30 92 01/07/17 15:30 98.3 19 108/70 98 01/06/17 12:24 Room Air 01/05/17 20:30 2.0 Intake and Output 01/06/17 01/06/17 01/07/17 15:00 23:00 07:00 Intake Total 100 ml Output Total 1250 ml Balance -1150 ml Exam Constitutional: alert Neck: non-tender, supple Respiratory: clear to auscultation, normal air movement Cardiovascular: nl pulses, regular rate and rhythm Gastrointestinal: non-tender, soft Musculoskeletal: nl extremities to inspection Extremities: normal pulses Results Result Diagram: 01/05/17 0443 01/05/17 0443 Results 24 hrs Laboratory Tests Test 01/06/17 20:22 01/07/17 07:43 01/07/17 12:28 Bedside Glucose 164 103 197 Medications Medications Current Medications Acetaminophen (Tylenol Tab) 650 mg Q6H PRN PO PAIN LEVEL 1-3 OR FEVER Last administered on 01/05/17 21:23; Admin Dose 650 MG; Start 01/02/17 at 03:00 Hydromorphone HCl (Dilaudid) 1 mg Q4H PRN IV SEVERE PAIN LEVEL 7-10 Last administered on 01/07/17 08:32; Admin Dose 1 MG; Start 01/02/17 at 03:00 Diagnostic Test (Pha) (Accu-Chek) 1 ea 02 XX ; Start 01/03/17 at 02:00 Miscellaneous Information 1 ea NOTE XX ; Start 01/02/17 at 03:30 Glucose (Glutose) 15 gm Q15M PRN PO DECREASED GLUCOSE; Start 01/02/17 at 03:30 Glucose (Glutose) 22.5 gm Q15M PRN PO DECREASED GLUCOSE; Start 01/02/17 at 03: 30 Dextrose (D50w Syringe) 25 ml Q15M PRN IV DECREASED GLUCOSE; Start 01/02/17 at 03:30 Dextrose (D50w Syringe) 50 ml Q15M PRN IV DECREASED GLUCOSE; Start 01/02/17 at 03:30 Glucagon (Glucagen) 1 mg Q15M PRN IM DECREASED GLUCOSE; Start 01/02/17 at 03:30 Glucose (Glutose) 15 gm Q15M PRN BUCCAL DECREASED GLUCOSE; Start 01/02/17 at 03 :30 Hydralazine HCl (Apresoline) 10 mg Q6H PRN IV ELEVATED BLOOD PRESSURE Last administered on 01/06/17 04:54; Admin Dose 10 MG; Start 01/02/17 at 19:40 Ondansetron HCl (Zofran Inj) 4 mg Q4 PRN IV NAUSEA AND/OR VOMITING Last administered on 01/07/17 08:32; Admin Dose 4 MG; Start 01/02/17 at 21:51 Insulin Glargine (Lantus) 11 unit DAILY@08 SC Last administered on 01/07/17 07 :47; Admin Dose 11 UNIT; Start 01/04/17 at 08:00 Atorvastatin Calcium (Lipitor) 10 mg HS PO Last administered on 01/06/17 20:16 ; Admin Dose 10 MG; Start 01/03/17 at 21:00 Gemfibrozil 600 mg 600 mg BID PO Last administered on 01/07/17 08:33; Admin Dose 600 MG; Start 01/03/17 at 21:00 Ondansetron HCl/ Dextrose (Zofran Inj/D5W) 54 ml @ 108 mls/hr Q6H PRN IV NAUSEA AND/OR VOMITING; Start 01/03/17 at 20:30 Clonidine (Catapres) 0.1 mg Q6H PRN PO ELEVATED BLOOD PRESSURE Last administered on 01/04/17 18:30; Admin Dose 0.1 MG; Start 01/03/17 at 23:30 Metoclopramide HCl (Reglan) 10 mg Q6 IV Last administered on 01/07/17 12:33; Admin Dose 10 MG; Start 01/05/17 at 12:00 Linagliptin (Tradjenta) 5 mg DAILY PO Last administered on 01/07/17 08:33; Admin Dose 5 MG; Start 01/06/17 at 09:00 Sucralfate (Carafate Susp) 1 gm QID PO Last administered on 01/07/17 12:30; Admin Dose 1 GM; Start 01/05/17 at 21:00 Metoprolol Tartrate (Lopressor) 25 mg BID PO Last administered on 01/07/17 08: 33; Admin Dose 25 MG; Start 01/05/17 at 21:00 Aspirin 81 mg 81 mg DAILY PO Last administered on 01/07/17 08:33; Admin Dose 81 MG; Start 01/06/17 at 09:00 Sodium Chloride (1/2 NS) 1,000 ml @ 75 mls/hr [id number] IV Last administered on 01/06/17 22:38; Admin Dose 75 MLS/HR; Start 01/05/17 at 20:30 Clopidogrel Bisulfate (plaVIX) 75 mg DAILY PO Last administered on 01/07/17 08 :33; Admin Dose 75 MG; Start 01/06/17 at 09:00 Erythromycin (Erythromycin Base (Ec)) 500 mg Q8 PO Last administered on 13:56; Admin Dose 500 MG; Start 01/06/17 at 22:00 Pantoprazole (Protonix Iv) 40 mg BID@06,18 IV Last administered on 01/07/17 05 :47; Admin Dose 40 MG; Start 01/06/17 at 18:00 Lisinopril (Zestril) 10 mg DAILY PO Last administered on 01/07/17 12:30; Admin Dose 10 MG; Start 01/07/17 at 11:00 GAY AMBRIZ NP Jan 07, 2017 17:21
== END 2017-01-07 18:55 | disposition home or self-care (01) | DRG 300 ==
LOC: FTE 20:34 → MS1 01-02 00:32 → OBSVTOIN 01-02 08:26 → TEL 01-05 21:04
PROVIDERS: ADMIT Family Medicine; ATTEND Family Medicine
PROC: 0DB78ZX Excision of Stomach, Pylorus, Via Natural or Artificial Opening Endoscopic, Diagnostic (ICD-10-PCS; principal; 2017-01-05 22:30)
DX: E11.51 Type 2 diabetes mellitus with diabetic peripheral angiopathy without gangrene (principal); N13.30 Unspecified hydronephrosis; E11.42 Type 2 diabetes mellitus with diabetic polyneuropathy; E11.65 Type 2 diabetes mellitus with hyperglycemia; Z79.4 Long term (current) use of insulin; Z79.84 Long term (current) use of oral hypoglycemic drugs; K29.70 Gastritis, unspecified, without bleeding; I10 Essential (primary) hypertension; E78.5 Hyperlipidemia, unspecified; R11.2 Nausea with vomiting, unspecified; K59.00 Constipation, unspecified; I70.212 Atherosclerosis of native arteries of extremities with intermittent claudication, left leg; Z79.02 Long term (current) use of antithrombotics/antiplatelets; Z79.82 Long term (current) use of aspirin
CPT/HCPCS: 36415; 74176; 75635; 76775; 78264; 80048; 80053; 80061; 81001; 82962; 83036; 83690; 83735; 84443; 84703; 85025; 86337; 86341; 87040; 87086; 88305; 88312; 93306; 93922; 96374; 96375; A9541; C9113; G0378; J0360; J0696; J1170; J1815; J1956; J2060; J2270; J2405; J2765; J7030; J7040; Q9967

== ENCOUNTER 2017-09-29 00:03 | Inpatient (IN) | END 2017-10-21 20:54 | disposition home health service (06) | DRG 253 ==

== ENCOUNTER 2017-11-09 02:03 | Emergency (ER) | END 2017-11-09 03:48 | disposition home or self-care (01) ==

== ENCOUNTER 2017-11-19 07:01 | Inpatient (IN) | END 2017-11-29 17:58 | disposition home or self-care (01) | DRG 95 ==

== ENCOUNTER 2018-07-09 21:02 | Inpatient (IN) | payer OTHER ==
[~2018-07-09] VITALS: Ht 160 cm; Wt 93.4 kg
[~2018-07-09 21:02] MED LIST changes: -ACET500C5 PO; +ASPI-817 PO; +CARV12.579 PO; -DENIES; +FOLI-49 PO; +GABA100C14 PO; +GLIP5TAB13 PO; +INSU100I12 SQ; +INSU100I33 SC; +LISI40TA3 PO; +NIFE60TA24 PO; +SIMV20TA PO; -[UNRECOGNIZED DRUG - REMARK]
[2018-07-09] MEDS ORDERED: NITROGLYCERIN 0.6 MG/HR PATCH TRANSDERM ONE (21:30)
[2018-07-09] MEDS ORDERED: NITROGLYCERIN 0.3 MG/HR PATCH TRANSDERM ONE (22:00)
[2018-07-09] MEDS ORDERED: FUROSEMIDE 40 MG INJ IV ONE (23:00)
[2018-07-09] MEDS ORDERED: morphine 4 MG/ML VIAL IV STA (23:14)
[2018-07-09] MEDS ORDERED: INSULIN REGULAR, HUMAN 100 UNIT/1 ML 3ML VIAL IVP STA (23:16)
--- NOTE | 2018-07-09 23:19 | ERD ---
ER Documentation Chief Complaint Chief Complaint SOB X 1 hr at home, bilateral feet, abdominal swelling. HPI 37-year-old female with history of hypertension, CHF, and peripheral artery disease with bilateral femoropopliteal bypass surgeries in the past presenting with complaints of acute shortness of breath that started a few hours ago. She also complains of bilateral lower extremity swelling and abdominal distention. Otherwise history is limited as the patient is currently on BiPAP and in respiratory distress. Unable to answer questions. She does complain of some tightness in her chest and pain in bilateral lower extremities which is chronic for her. ROS Limited due to respiratory distress Medications Home Meds Reported Medications Insulin Lispro (Humalog Kwikpen U-100) 100 Unit/1 Ml Insuln.pen, 6 UNIT SQ BEFORE MEALS, EA 11/19/17 Gabapentin* (Gabapentin*) 100 Mg Capsule, 100 MG PO TID, #90 CAP 11/19/17 Lisinopril* (Lisinopril*) 40 Mg Tablet, 40 MG PO DAILY, #30 TAB 11/19/17 Insulin Glargine,Hum.rec.anlog (Basaglar Kwikpen U-100) 100 Unit/1 Ml Insuln.pen, 40 UNIT SC QHS, EA 11/19/17 Nifedipine* (Afeditab CR*) 60 Mg Tablet.er, 60 MG PO DAILY, #30 TAB.SA 11/19/17 Folic Acid* (Folic Acid*) 1 Mg Tablet, 1 MG PO DAILY, TAB 11/19/17 Carvedilol* (Carvedilol*) 12.5 Mg Tablet, 12.5 MG PO BID, #60 TAB 11/19/17 Glipizide* (Glipizide*) 5 Mg Tablet, 5 MG PO AC BREAKFAST, TAB 11/19/17 Simvastatin* (Zocor*) 20 Mg Tablet, 20 MG PO QHS, #30 TAB 11/19/17 Aspirin* (Aspirin* EC) 81 Mg Tablet.dr, 81 MG PO DAILY, TAB 11/19/17 Allergies Allergies: Coded Allergies: No Known Drug Allergies (Verified Allergy, Mild, 11/21/17) PMhx/Soc History of Surgery: Yes (Bilateral femoropopliteal bypass) Anesthesia Reaction: No Hx Neurological Disorder: Yes (NEUROPATHY) Hx Respiratory Disorders: No Hx Cardiac Disorders: Yes (HIGH BLOOD PRESSURE;CHEST PAIN;HIGH LIPID) Hx Psychiatric Problems: No Hx Miscellaneous Medical Probl: Yes (severe PAD, DM II) Hx Alcohol Use: No Hx Substance Use: No Hx Tobacco Use: No Smoking Status: Never smoker FmHx Unable to obtain Physical Exam Vitals Vital Signs Date Temp Pulse Resp B/P (MAP) Pulse Ox O2 O2 Flow FiO2 Time Delivery Rate 07/09/18 110 25 173/95 99 Nasal 22:35 (121) Cannula 07/09/18 10.0 21:13 07/09/18 116 100 100 21:12 07/09/18 97.5 125 35 198/126 100 21:09 (150) Physical Exam Const: in significant respiratory distress, on BiPAP Head: Atraumatic Eyes: Normal Conjunctiva ENT: Normal External Ears, Nose and Mouth. Neck: Full range of motion. No meningismus. No obvious JVD, limited by body habitus Resp: Diminished breath sounds bilaterally Cardio: Tachycardic, regular rhythm, no murmurs Abd: Soft, non tender, distended. Normal bowel sounds Skin: No petechiae or rashes Back: No midline or flank tenderness Ext: No cyanosis, 2+ bilateral lower extremity edema. Diffuse leg tenderness Neur: Awake and alert, answering questions appropriately, moving all extremities Psych: Normal Mood and Affect Result Diagram: 07/09/18210907/09/182109 Results 24 hrs Laboratory Tests Test 07/09/18 21:10 07/09/18 21:38 07/09/18 22:07 White Blood Count 9.5 10^3/ul Red Blood Count 3.42 10^6/ul Hemoglobin 8.9 g/dl Hematocrit 29.2 % Mean Corpuscular Volume 85.4 fl Mean Corpuscular Hemoglobin 26.0 pg Mean Corpuscular 30.5 g/dl Hemoglobin Concent Red Cell Distribution Width 16.2 % Platelet Count 299 10^3/UL Mean Platelet Volume 10.9 fl Immature Granulocytes % 0.500 % Neutrophils % 71.0 % Lymphocytes % 19.7 % Monocytes % 5.8 % Eosinophils % 2.3 % Basophils % 0.7 % Nucleated Red Blood Cells % 0.0 /100WBC Immature Granulocytes # 0.050 10^3/ul Neutrophils # 6.8 10^3/ul Lymphocytes # 1.9 10^3/ul Monocytes # 0.6 10^3/ul Eosinophils # 0.2 10^3/ul Basophils # 0.1 10^3/ul Nucleated Red Blood Cells # 0.0 10^3/ul Sodium Level 137 mmol/L Potassium Level 5.7 mmol/L Chloride Level 108 mmol/L Carbon Dioxide Level 22 mmol/L Anion Gap 7 Blood Urea Nitrogen 43 mg/dl Creatinine 2.94 mg/dl Est Glomerular Filtrat 18 mL/min Rate mL/min Glucose Level 293 mg/dl Calcium Level 7.8 mg/dl Total Bilirubin 0.3 mg/dl Direct Bilirubin 0.00 mg/dl Indirect Bilirubin 0.3 mg/dl Aspartate Amino 20 IU/L Transf (AST/SGOT) Alanine 24 IU/L Aminotransferase (ALT/SGPT) Alkaline Phosphatase 147 IU/L Troponin I < 0.012 ng/ml B-Type Natriuretic Peptide 7690 PG/ML Total Protein 7.6 g/dl Albumin 3.7 g/dl Globulin 3.90 g/dl Albumin/Globulin Ratio 0.94 Blood Gas Specimen Source Blood arterial Arterial Blood Date Drawn 07/09/2018 9:45:30 PM Arterial Blood pH 7.345 (Temp corrected) Arterial Blood pCO2 36.8 mmhg (Temp correct) Arterial Blood pO2 69.7 mmHG (Temp corrected) Arterial Blood HCO3 19.6 mmol/L Arterial Blood Base Excess -5.5 mmol/L Arterial Blood 93.0 mmHG Oxygen Saturation Veto Test N/A Arterial Blood Gas Right Radial Puncture Site Arterial 0.3 % Blood Carboxyhemoglobin Arterial Blood 0.2 % Methemoglobin Blood Gas A-a O2 606.5 mmHg Differential Oxyhemoglobin Percent 92.5 % Blood Gas Temperature 37.0 C Blood Gas Respiration Rate 16.0 Blood Gas Actual 16 Respiration Rate Blood Gas Modality MASK - BIPAP FiO2 100.0 % Blood Gas Pressure Support 10 Blood Gas IPAP/EPAP Ratio 15/5 Blood Gas Notified Whom MR Blood Gas Notified Time 07/09/2018 9:51:15 PM Lactic Acid Level 0.9 mmol/L Current Medications Medications Dose Sig/Jaime Start Time Status Last (Trade) Ordered Route PRN Stop Time Admin Dose Reason Admin 1 patch ONCE ONCE 07/09/18 Cancel Nitroglycerin TRANSDERM 21:30 07/09/18 21:31 (Nitroglyceri n 0.6 Mg/Hr) 2 patch ONCE ONCE 07/09/18 DC 07/09/18 Nitroglycerin TRANSDERM 22:00 21:48 07/09/18 22:01 (Nitroglyceri n 0.3 Mg/Hr) Furosemide 40 mg ONCE ONCE 07/09/18 DC (Lasix) IV 23:00 07/09/18 23:01 Procedures/MDM EMERGENT LABS AND DIAGNOSTIC STUDIES: Lab Results above were reviewed and interpreted by me. CBC: Anemia, chronic. No evidence of infection. CMP: Acute on chronic renal failure with elevated BUN and creatinine with hyperkalemia. Hyperglycemic without evidence of acidosis. BNP elevated, consistent with heart failure Troponin within normal limits, not indicative of cardiac ischemia Lactate within normal limits without evidence of sepsis or tissue hypoperfusion 12-lead EKG was interpreted by Dana Randall MD: Sinus tachycardia at 105 bpm Normal axis Normal intervals No acute ST or T wave changes suggestive of acute ischemia or STEMI. Radiology Results as interpreted by Radiology below were reviewed by Karl orantes MD: Chest x-ray: FINDINGS: The cardiomediastinal silhouette is mildly enlarged . There is concern for mild interstitial edema. Slight blunting of the costophrenic angles is concerning f or small bilateral pleural effusions. There is no evidence of pneumothorax The osseous structures are intact with no evidence for acute abnormality. RPTAT:HJJR IMPRESSION: The combination of findings is concerning for cardiac decompensation, congestive heart failure with small bilateral pleural effusions. Consider follow-up evaluation. Initial Nursing notes reviewed. Previous Medical Records requested via the Electronic Health Record. EMERGENCY DEPARTMENT COURSE / MEDICAL DECISION MAKING: Patient is presenting with acute onset of shortness of breath with hypertension and tachycardia and hypoxia on room air. She was placed on CPAP prior to arrival and then BiPAP when she arrived to the ER. Her symptoms and workup are consistent with acute on chronic heart failure. Labs show acute on chronic renal insufficiency. She also had evidence of mild hyperkalemia. Lasix IV and IV insulin given. She has been weaned off the BiPAP and is now on supplemental oxygen by nasal cannula. Patient's heart failure symptoms are concerning for acute decompensation and will require inpatient workup and monitoring. Further w/u for ischemia, arrhythmia, PE or dissection will be deferred to the inpatient team. Critical Care Time: 35 minutes Treatments/Evaluations: Close monitoring and treatment of unstable vital signs, cardiorespiratory, and neurologic status, while maintaining tight balance of fluid, respiratory, and cardiac interventions. This time includes discussing the case with the patient and the patients family. This time does not include all procedures stated elsewhere in this record. This time also includes reviewing old records, labs and radiological studies. This time includes examining and re-examining the patient. Additionally, this time also includes arranging care with admitting and consulting physicians. Accepting Care Team: Current data and ongoing care discussed. Time: Time of admission Primary Provider: Dr. Henderson Consulting: none Outstanding Data: none Departure Diagnosis: Primary Impression: Acute exacerbation of CHF (congestive heart failure) Heart failure type: diastolic Qualified Codes: I50.33 - Acute on chronic diastolic (congestive) heart failure Additional Impressions: Acute on chronic renal failure Acute renal failure type: unspecified Chronic kidney disease stage: unspecified stage Qualified Codes: N17.9 - Acute kidney failure, u nspecified; N18.9 - Chronic kidney disease, unspecified Acute hypoxemic respiratory failure Hyperkalemia Condition: Serious JAMSHID RANDALL MD Jul 09, 2018 23:19
[2018-07-09] MEDS ORDERED: DEXTROSE 50% 50 ML SYRINGE IV PRN (23:30)
[2018-07-09] MEDS ORDERED: ONDANSETRON 4 MG INJ IV PRN (23:30)
[2018-07-09] MEDS ORDERED: ACETAMINOPHEN 325 MG TAB PO PRN (23:30)
--- NOTE | 2018-07-09 23:54 | HP ---
Date/Time of Note Date/Time of Note DATE: 07/09/18 TIME: 23:54 Assessment/Plan VTE Prophylaxis Pharmacological prophylaxis: heparin Lines/Catheters IV Catheter Type (from Nrsg): Saline Lock Assessment/Plan Assessment/Plan 37-year-old female with a history of hypertension, diabetes, CKD, dyslipidemia, depression, diabetic foot ulcer, PVD, right femoropopliteal bypass complicated by occlusion in 2018, bilateral lower extremity numbness treated with IVIG for AIDP presents for shortness of breath and lower extremity edema secondary to a worsening kidney function and new onset CHF PLAN -will diurese -2D echo -Trend troponin -Cardiology consult -Nephrology consult for acute on CKD. Obtain renal ultrasound -Need better control of BP -Insulin for diabetes -Continue home meds, adjust as needed Result Diagram: 07/09/18210907/09/182109 Results 24hrs Laboratory Tests Test 07/09/18 21:10 07/09/18 21:38 07/09/18 22:07 White Blood Count 9.5 # Red Blood Count 3.42 L Hemoglobin 8.9 L Hematocrit 29.2 L Mean Corpuscular Volume 85.4 Mean Corpuscular Hemoglobin 26.0 L Mean Corpuscular 30.5 L Hemoglobin Concent Red Cell Distribution Width 16.2 #H Platelet Count 299 # Mean Platelet Volume 10.9 H Immature Granulocytes % 0.500 H Neutrophils % 71.0 Lymphocytes % 19.7 Monocytes % 5.8 Eosinophils % 2.3 Basophils % 0.7 Nucleated Red Blood Cells % 0.0 Immature Granulocytes # 0.050 H Neutrophils # 6.8 Lymphocytes # 1.9 Monocytes # 0.6 Eosinophils # 0.2 Basophils # 0.1 Nucleated Red Blood Cells # 0.0 Sodium Level 137 Potassium Level 5.7 H Chloride Level 108 Carbon Dioxide Level 22 Anion Gap 7 Blood Urea Nitrogen 43 H Creatinine 2.94 H Est Glomerular Filtrat 18 L Rate mL/min Glucose Level 293 H Calcium Level 7.8 L Total Bilirubin 0.3 Direct Bilirubin 0.00 Indirect Bilirubin 0.3 Aspartate Amino 20 Transf (AST/SGOT) Alanine 24 Aminotransferase (ALT/SGPT) Alkaline Phosphatase 147 H Troponin I < 0.012 B-Type Natriuretic Peptide 7690 H Total Protein 7.6 Albumin 3.7 Globulin 3.90 H Albumin/Globulin Ratio 0.94 Blood Gas Specimen Source Blood arterial Arterial Blood Date Drawn 07/09/2018 9:45:30 PM Arterial Blood pH 7.345 L (Temp corrected) Arterial Blood pCO2 36.8 (Temp correct) Arterial Blood pO2 69.7 L (Temp corrected) Arterial Blood HCO3 19.6 L Arterial Blood Base Excess -5.5 L Arterial Blood 93.0 L Oxygen Saturation Veto Test N/A Arterial Blood Gas Right Radial Puncture Site Arterial 0.3 Blood Carboxyhemoglobin Arterial Blood Methemoglobin 0.2 Blood Gas A-a O2 606.5 H Differential Oxyhemoglobin Percent 92.5 L Blood Gas Temperature 37.0 Blood Gas Respiration Rate 16.0 Blood Gas Actual 16 Respiration Rate Blood Gas Modality MASK - BIPAP FiO2 100.0 Blood Gas Pressure Support 10 Blood Gas IPAP/EPAP Ratio 15/5 Blood Gas Notified Whom MR Blood Gas Notified Time 07/09/2018 9:51:15 PM Lactic Acid Level 0.9 HPI/ROS Admit Date/Time Admit Date/Time Hx of Present Illness This is a 37-year-old female with a history of hypertension, diabetes, dyslipidemia, depression, CKD, diabetic foot ulcer, PVD, right femoropopliteal bypass complicated by occlusion in 2018, bilateral lower extremity numbness treated with IVIG for AIDP. Patient presented to ER complaining of shortness of breath, bilateral lower extremity swelling and a chronic bilateral lower. Symptoms been progressively getting worse for the past few days. She said when she does not take her medication, she noticed decreased urine output. She did not know which medication. She denied chest pain. She said everything passed out, she has been pulling out her hair. When she presented to ER, blood pressure was 198/126, heart rate 125, respiratory 35. Chest x-ray was a finding of CHF. Lab shows a creatinine of 2.94, potassium 5.7, hemoglobin 8.9, BNP of 7700. Patient was initially started on BiPAP with a significant improvement in her symptoms. Currently doing well on 2 2L nasal cannula. PMH/Family/Social Past Medical History Medical History: other (See HPI) Medications Current Medications Ondansetron HCl (Zofran Inj) 4 mg ER BRIDGE PRN IV NAUSEA/VOMITING; Start 07/09/18 at 23:30; Stop 07/10/18 at 23:29 Acetaminophen (Tylenol Tab) 650 mg ER BRIDGE PRN PO .MILD PAIN 1-3 OR TEMP; Start 07/09/18 at 23:30; Stop 07/10/18 at 23:29 Dextrose (D50w Syringe) ONCE PRN IV DECREASED GLUCOSE; Start 07/09/18 at 23:30 Coded Allergies: No Known Drug Allergies (Verified Allergy, Mild, 11/21/17) Past Surgical History Past Surgical Hx: other (See HPI) Family History Significant Family History: other Social History Alcohol Use: none Smoking Status: Never smoker Drug Use: none Exam/Review of Systems Vital Signs Vitals Vital Signs Date Temp Pulse Resp B/P (MAP) Pulse Ox O2 O2 Flow FiO2 Time Delivery Rate 07/09/18 110 25 173/95 99 Nasal 22:35 (121) Cannula 07/09/18 10.0 21:13 07/09/18 100 21:12 07/09/18 97.5 21:09 Exam Constitutional: other (No acute distress) Head: other (Loss of hair noted. Patient has been intentionally pulling out when stressed out) Eyes: PERRL Respiratory: other (Decreased breath sounds) Cardiovascular: other (Tachycardic regular rhythm) Gastrointestinal: soft, non-tender Extremities: edema JUNIOR GILL MD Jul 09, 2018 23:54
[2018-07-10] VITALS (11 sets, daily range): BP systolic 112–159; BP diastolic 57–77; PULSE 80–94; RESP 18–20; Ht 160 cm; Wt 93.4 kg
[2018-07-10] MEDS ORDERED: NITROGLYCERIN (SL) 0.4 MG TAB SL PRN
[2018-07-10] MEDS ORDERED: INSULIN GLARGINE [LANtus] 3 ML PEN SC SCH
[2018-07-10] MEDS ORDERED: ALBUTEROL/IPRATROPIUM (NEB) 3 ML AMP HHN PRN
[2018-07-10] MEDS ORDERED: NACL 0.9% 3 ML SYG IV SCH
[2018-07-10] MEDS ORDERED: ONDANSETRON 4 MG INJ IV PRN
[2018-07-10] MEDS ORDERED: GLUCAGON 1 MG INJ IM PRN (01:00)
[2018-07-10] MEDS ORDERED: DEXTROSE 50% 50 ML SYRINGE IV PRN ×2 (01:00)
[2018-07-10] MEDS ORDERED: GLUCOSE GEL 15 GRAM TUBE PO PRN ×2 (01:00)
[2018-07-10] MEDS ORDERED: GLUCOSE GEL 15 GRAM TUBE BUCCAL PRN (01:00)
[2018-07-10] MEDS: INSULIN GLARGINE [LANTus] (100 UNITS/ML) SYG SC SCH ×2 (03:00→21:52)
[2018-07-10] MEDS ORDERED: morphine 2 MG INJ IV STA ×2 (03:24→13:47)
[2018-07-10] MEDS ORDERED: FUROSEMIDE 20 MG INJ IV SCH (06:00)
[2018-07-10] MEDS: GABAPENTIN 100 MG CAP PO SCH ×3 (08:10→21:31)
[2018-07-10] MEDS: NIFEdipine (XL) 60 MG TAB PO SCH (08:11)
[2018-07-10] MEDS: FOLIC ACID 1 MG TAB PO SCH (08:11)
[2018-07-10] MEDS: ASPIRIN (EC) 81 MG TAB PO SCH (08:11)
[2018-07-10] MEDS: INSULIN ASPART [NOVOLOG] 3 ML PEN SC SCH ×3 (08:13→17:29)
[2018-07-10] MEDS ORDERED: LISINOPRIL 20 MG TAB PO SCH (09:00)
[2018-07-10] MEDS ORDERED: METOLAZONE 5 MG TAB PO ONE (13:30)
--- NOTE | 2018-07-10 15:16 | CONS ---
DATE OF ADMISSION: 07/09/2018 DATE OF CONSULTATION: 07/10/2018 TYPE OF CONSULTATION: Nephrology. REASON FOR CONSULTATION: Acute kidney injury. 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 with increasing shortness of breath, lower ex tremity edema. The patient states that over several days she has noticed increased lower extremity s welling with worsening increased shortness of breath. As a result, she came into the [facility] Emergency Room. Upon arrival, the patient had a chest x-ray which showed findings of cardiac de compensation CHF, bilateral pleural effusion. The patient also had a renal ultrasound on admission t hat showed increased echogenicity consistent with medical renal disease, no hydronephrosis. On admis francia, the patient's potassium was 5.2, BUN 45, creatinine 2.94. In the emergency room, the patient w as given diuretic therapy and admitted to telemetry. In terms of patient's renal history, the patient has CKD stage IV with an estimated EGFR around 20 mL per minute per patient. The patient does see a snubber in outpatient setting. The patient sta tom that she has been compliant with medications. The patient admits to frothy urine. Denies any ra shes, any hemoptysis or hematochezia. PAST MEDICAL HISTORY: As stated above, history of CKD stage IV, history of diabetes, history of diab etic nephropathy, history of hypertension, history of dyslipidemia, history of peripheral vascular di sease. PAST SURGICAL HISTORY: The patient is status post bilateral femoropopliteal bypass. ALLERGIES: NO KNOWN DRUG ALLERGIES. SOCIAL HISTORY: Does not drink, smoke or do drugs. MEDICATIONS: Have been reviewed. REVIEW OF SYSTEMS: A 14-point review of systems conducted. Pertinent positives stated in HPI, other mercer negative. PHYSICAL EXAMINATION: VITAL SIGNS: Blood pressure is 127/71, respiration 18, pulse 89, temperature 98.1. HEENT: Head is normocephalic. NECK: Supple. HEART: Regular rate. LUNGS: Show diminished breath sounds at base. Positive crackles. ABDOMEN: Soft, nontender to palpation. EXTREMITIES: Negative for clubbing, cyanosis. Positive edema, +3. DERMATOLOGIC: No rashes. MUSCULOSKELETAL: No joint effusions. NEUROLOGIC: No focal deficits. LABORATORY DATA: Show sodium 140, potassium 5.2, BUN 25, creatinine 2.94. White count is 9.7, hemog lobin 7.8, platelet count is 289. IMAGING STUDIES: Have been reviewed. ASSESSMENT AND PLAN: This is a 37-year-old female who presents with: 1. Nonoliguric acute kidney injury on top of chronic kidney disease stage IV with previous baseline creatinine around 2.0 mg/dL. Etiology of current acute kidney injury may be secondary to hemodynamic s, PEDRO inhibitor effect, diuretics, cardiorenal syndrome. The possibility of progression of chronic kidney disease is also a consideration. Plan at this point is to do a full evaluation. We will chec k UA with microanalysis, check urine electrolytes, calculate fraction secretion of urea. We will vinicius ntify patient's proteinuria. The patient's renal ultrasound was reviewed. No evidence of obstructio n. We would recommend to continue current diuretic regimen. Monitor I's and O's closely. We will c onsider adding metolazone to help augment diuresis. We will hold PEDRO inhibitor at this time until re nal function stabilizes. Otherwise, continue current treatment plan, supportive care, renally dose a ll meds. 2. Volume overload. Etiology is possibly multifactorial secondary to decompensated heart failure, p ossible nephrotic syndrome. The patient had previous evidence of nephrotic range proteinuria. Plan at this point is to quantify proteinuria. Continue diuretic therapy. Please note that a previous se rological workup has been done which was negative, so low suspicion for primary glomerulopathy at thi s time. 3. Anemia. Monitor hemoglobin and hematocrit levels. 4. Metabolic bone disorder. Monitor calcium and phosphorus levels. 5. Hyperkalemia secondary to acute kidney injury and PEDRO inhibitor effect. We will place the patien t on low-potassium diet. Hold PEDRO inhibitor. Continue diuretic therapy and monitor. 6. 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 Etiology is likely due to diabetic neph ropathy. As stated above, previous serological workup has been done and negative. The patient is cu rrently in acute kidney injury. We will continue current treatment plan. Otherwise, continue diseas e factor modification. 7. Diabetes. Continue current insulin regimen. 8. Hypertension. Continue current blood pressure regimen. Continue diuretic therapy. 9. History of peripheral vascular disease, status post bypass. Continue medical management. 10. Diabetic foot ulcer. Continue wound care. 11. Dyslipidemia. Continue statin therapy. Thank you, Dr. Foreman, for this interesting consult. It will be a pleasure to follow patient with y ou throughout the hospital course. Dictated By: CARROL PRATT DO NR/NTS Conf#: [id number] DID#: [id number] CC: JUNIOR GILL MD;*EndCC*
--- NOTE | 2018-07-10 16:00 | PN ---
Date/Time of Note Date/Time of Note DATE: 07/10/18 TIME: 15:58 Assessment/Plan VTE Prophylaxis Risk score (from Nsg)>0 risk: 1 SCD applied (from Nsg): Yes Pharmacological prophylaxis: heparin Lines/Catheters IV Catheter Type (from Nrsg): Saline Lock Assessment/Plan Hospital Course 37 yo female with DMII and CKD III who presents with volume overload from renal failure - Continue diuresis - Renal management per Dr Begum DMII: - Basal/bolus insulin Result Diagram: 07/10/18 0532 07/10/18 0532 Results 24hrs Laboratory Tests Test 07/09/18 21:10 07/09/18 21:38 07/09/18 22:07 07/09/18 23:34 White Blood Count 9.5 # Red Blood Count 3.42 L Hemoglobin 8.9 L Hematocrit 29.2 L Mean Corpuscular 85.4 Volume Mean Corpuscular 26.0 L Hemoglobin Mean Corpuscular 30.5 L Hemoglobin Concen t Red Cell 16.2 #H Distribution Width Platelet Count 299 # Mean Platelet 10.9 H Volume Immature 0.500 H Granulocytes % Neutrophils % 71.0 Lymphocytes % 19.7 Monocytes % 5.8 Eosinophils % 2.3 Basophils % 0.7 Nucleated Red 0.0 Blood Cells % Immature 0.050 H Granulocytes # Neutrophils # 6.8 Lymphocytes # 1.9 Monocytes # 0.6 Eosinophils # 0.2 Basophils # 0.1 Nucleated Red 0.0 Blood Cells # Sodium Level 137 Potassium Level 5.7 H Chloride Level 108 Carbon Dioxide 22 Level Anion Gap 7 Blood Urea 43 H Nitrogen Creatinine 2.94 H Est Glomerular 18 L Filtrat Rate mL/min Glucose Level 293 H Calcium Level 7.8 L Total Bilirubin 0.3 Direct Bilirubin 0.00 Indirect 0.3 Bilirubin Aspartate Amino 20 Transf (AST/SGOT) Alanine 24 Aminotransferase (ALT/SGPT) Alkaline 147 H Phosphatase Troponin I < 0.012 0.014 B-Type 7690 H Natriuretic Peptide Total Protein 7.6 Albumin 3.7 Globulin 3.90 H Albumin/Globulin 0.94 Ratio Blood Gas Blood arterial Specimen Source Arterial Blood 07/09/2018 9:45:3 Date Drawn 0 PM Arterial Blood pH 7.345 L (Temp corrected) Arterial Blood 36.8 pCO2 (Temp correct) Arterial Blood 69.7 L pO2 (Temp corrected) Arterial Blood 19.6 L HCO3 Arterial Blood -5.5 L Base Excess Arterial Blood 93.0 L Oxygen Saturation Veto Test N/A Arterial Blood Right Radial Gas Puncture Site Arterial 0.3 Blood Carboxyhemo globin Arterial Blood 0.2 Methemoglobin Blood Gas A-a O2 606.5 H Differential Oxyhemoglobin 92.5 L Percent Blood Gas 37.0 Temperature Blood Gas 16.0 Respiration Rate Blood Gas Actual 16 Respiration Rate Blood Gas MASK - BIPAP Modality FiO2 100.0 Blood Gas 10 Pressure Support Blood Gas 15/5 IPAP/EPAP Ratio Blood Gas MR Notified Whom Blood Gas 07/09/2018 9:51:1 Notified Time 5 PM Lactic Acid Level 0.9 0.8 Creatine Kinase 126 Creatine Kinase 0.9 Index Creatinine Kinase 1.09 MB (Mass) Test 07/10/18 00:17 07/10/18 00:32 07/10/18 02:30 07/10/18 02:40 Bedside Glucose 296 H 284 H 223 H Lactic Acid Level 0.8 Test 07/10/18 05:32 07/10/18 08:12 07/10/18 12:06 White Blood Count 9.7 Red Blood Count 3.05 L Hemoglobin 7.8 L Hematocrit 26.2 L Mean Corpuscular 85.9 Volume Mean Corpuscular 25.6 L Hemoglobin Mean Corpuscular 29.8 L Hemoglobin Concen t Red Cell 16.0 H Distribution Width Platelet Count 289 Mean Platelet 10.5 H Volume Immature 0.400 Granulocytes % Neutrophils % 65.1 Lymphocytes % 23.5 Monocytes % 7.7 Eosinophils % 2.6 Basophils % 0.7 Nucleated Red 0.0 Blood Cells % Immature 0.040 H Granulocytes # Neutrophils # 6.3 Lymphocytes # 2.3 Monocytes # 0.8 Eosinophils # 0.3 Basophils # 0.1 Nucleated Red 0.0 Blood Cells # Sodium Level 140 Potassium Level 5.2 H Chloride Level 110 Carbon Dioxide 21 Level Anion Gap 9 Blood Urea 45 H Nitrogen Creatinine 2.94 H Est Glomerular 18 L Filtrat Rate mL/min Glucose Level 134 # Hemoglobin A1c 7.7 H Calcium Level 7.7 L Magnesium Level 2.0 Total Bilirubin 0.2 Direct Bilirubin 0.00 Indirect 0.2 Bilirubin Aspartate Amino 14 L Transf (AST/SGOT) Alanine 21 Aminotransferase (ALT/SGPT) Alkaline 99 Phosphatase Creatine Kinase 96 Creatine Kinase 1.2 Index Creatinine Kinase 1.15 MB (Mass) Troponin I 0.016 Total Protein 6.5 # Albumin 3.2 L Globulin 3.30 H Albumin/Globulin 0.96 Ratio Triglycerides 190 H Level Cholesterol Level 143 LDL Cholesterol, 78 Calculated HDL Cholesterol 27 L Cholesterol/HDL 5.2 Ratio Bedside Glucose 96 118 Subjective 24 Hr Interval Summary Free Text/Dictation Diuresing effectively Complains of b/l leg pain Exam/Review of Systems Exam Vitals Vital Signs Date Temp Pulse Resp B/P (MAP) Pulse Ox O2 O2 Flow FiO2 Time Delivery Rate 07/10/18 97.6 84 18 112/57 98 Room Air 15:35 (75) 07/10/18 2.0 07:29 07/09/18 100 21:12 Exam AOx3 Pleasant approrpiate RRR + JVD Clera lungs b/l leg edema Results Results 24hrs Laboratory Tests Test 07/09/18 21:10 07/09/18 21:38 07/09/18 22:07 07/09/18 23:34 White Blood Count 9.5 # Red Blood Count 3.42 L Hemoglobin 8.9 L Hematocrit 29.2 L Mean Corpuscular 85.4 Volume Mean Corpuscular 26.0 L Hemoglobin Mean Corpuscular 30.5 L Hemoglobin Concen t Red Cell 16.2 #H Distribution Width Platelet Count 299 # Mean Platelet 10.9 H Volume Immature 0.500 H Granulocytes % Neutrophils % 71.0 Lymphocytes % 19.7 Monocytes % 5.8 Eosinophils % 2.3 Basophils % 0.7 Nucleated Red 0.0 Blood Cells % Immature 0.050 H Granulocytes # Neutrophils # 6.8 Lymphocytes # 1.9 Monocytes # 0.6 Eosinophils # 0.2 Basophils # 0.1 Nucleated Red 0.0 Blood Cells # Sodium Level 137 Potassium Level 5.7 H Chloride Level 108 Carbon Dioxide 22 Level Anion Gap 7 Blood Urea 43 H Nitrogen Creatinine 2.94 H Est Glomerular 18 L Filtrat Rate mL/min Glucose Level 293 H Calcium Level 7.8 L Total Bilirubin 0.3 Direct Bilirubin 0.00 Indirect 0.3 Bilirubin Aspartate Amino 20 Transf (AST/SGOT) Alanine 24 Aminotransferase (ALT/SGPT) Alkaline 147 H Phosphatase Troponin I < 0.012 0.014 B-Type 7690 H Natriuretic Peptide Total Protein 7.6 Albumin 3.7 Globulin 3.90 H Albumin/Globulin 0.94 Ratio Blood Gas Blood arterial Specimen Source Arterial Blood 07/09/2018 9:45:3 Date Drawn 0 PM Arterial Blood pH 7.345 L (Temp corrected) Arterial Blood 36.8 pCO2 (Temp correct) Arterial Blood 69.7 L pO2 (Temp corrected) Arterial Blood 19.6 L HCO3 Arterial Blood -5.5 L Base Excess Arterial Blood 93.0 L Oxygen Saturation Veto Test N/A Arterial Blood Right Radial Gas Puncture Site Arterial 0.3 Blood Carboxyhemo globin Arterial Blood 0.2 Methemoglobin Blood Gas A-a O2 606.5 H Differential Oxyhemoglobin 92.5 L Percent Blood Gas 37.0 Temperature Blood Gas 16.0 Respiration Rate Blood Gas Actual 16 Respiration Rate Blood Gas MASK - BIPAP Modality FiO2 100.0 Blood Gas 10 Pressure Support Blood Gas 15/5 IPAP/EPAP Ratio Blood Gas MR Notified Whom Blood Gas 07/09/2018 9:51:1 Notified Time 5 PM Lactic Acid Level 0.9 0.8 Creatine Kinase 126 Creatine Kinase 0.9 Index Creatinine Kinase 1.09 MB (Mass) Test 07/10/18 00:17 07/10/18 00:32 07/10/18 02:30 07/10/18 02:40 Bedside Glucose 296 H 284 H 223 H Lactic Acid Level 0.8 Test 07/10/18 05:32 07/10/18 08:12 07/10/18 12:06 White Blood Count 9.7 Red Blood Count 3.05 L Hemoglobin 7.8 L Hematocrit 26.2 L Mean Corpuscular 85.9 Volume Mean Corpuscular 25.6 L Hemoglobin Mean Corpuscular 29.8 L Hemoglobin Concen t Red Cell 16.0 H Distribution Width Platelet Count 289 Mean Platelet 10.5 H Volume Immature 0.400 Granulocytes % Neutrophils % 65.1 Lymphocytes % 23.5 Monocytes % 7.7 Eosinophils % 2.6 Basophils % 0.7 Nucleated Red 0.0 Blood Cells % Immature 0.040 H Granulocytes # Neutrophils # 6.3 Lymphocytes # 2.3 Monocytes # 0.8 Eosinophils # 0.3 Basophils # 0.1 Nucleated Red 0.0 Blood Cells # Sodium Level 140 Potassium Level 5.2 H Chloride Level 110 Carbon Dioxide 21 Level Anion Gap 9 Blood Urea 45 H Nitrogen Creatinine 2.94 H Est Glomerular 18 L Filtrat Rate mL/min Glucose Level 134 # Hemoglobin A1c 7.7 H Calcium Level 7.7 L Magnesium Level 2.0 Total Bilirubin 0.2 Direct Bilirubin 0.00 Indirect 0.2 Bilirubin Aspartate Amino 14 L Transf (AST/SGOT) Alanine 21 Aminotransferase (ALT/SGPT) Alkaline 99 Phosphatase Creatine Kinase 96 Creatine Kinase 1.2 Index Creatinine Kinase 1.15 MB (Mass) Troponin I 0.016 Total Protein 6.5 # Albumin 3.2 L Globulin 3.30 H Albumin/Globulin 0.96 Ratio Triglycerides 190 H Level Cholesterol Level 143 LDL Cholesterol, 78 Calculated HDL Cholesterol 27 L Cholesterol/HDL 5.2 Ratio Bedside Glucose 96 118 Medications Medication Current Medications Dextrose (D50w Syringe) ONCE PRN IV DECREASED GLUCOSE; Start 07/09/18 at 23:30 IV Flush (NS 3 ml) 3 ml PER PROTOCOL IV ; Start 07/10/18 at 00:00 Ondansetron HCl (Zofran Inj) 4 mg Q6H PRN IV NAUSEA/VOMITING; Start 07/10/18 at 00:00 Nitroglycerin (Nitroglycerin (Sl Tab) 0.4 Mg) 1 tab Q5M PRN SL .CHEST PAIN; Start 07/10/18 at 00:00 Acetaminophen (Tylenol Tab) 650 mg Q6H PRN PO .PAIN 1-3 OR TEMP; Start 07/10/18 at 00:00 Albuterol/ Ipratropium (Duoneb) 3 ml Q2H RESP THERAPY PRN HHN SHORTNESS OF BREATH; Start 07/10/18 at 00:00 Aspirin (Halfprin) 81 mg DAILY PO Last administered on 07/10/18at 08:11; Admin Dose 81 MG; Start 07/10/18 at 09:00 Carvedilol (Coreg) 12.5 mg BID PO Last administered on 07/10/18at 08:11; Admin Dose 12.5 MG; Start 07/10/18 at 00:00 Folic Acid (Folic Acid) 1 mg DAILY PO Last administered on 07/10/18 08:11; Admin Dose 1 MG; Start 07/10/18 at 09:00 Gabapentin (Neurontin) 100 mg TID PO Last administered on 07/10/18at 12:06; Admin Dose 100 MG; Start 07/10/18 at 09:00 Nifedipine (Procardia Xl) 60 mg DAILY PO Last administered on 07/10/18at 08:11; Admin Dose 60 MG; Start 07/10/18 at 09:00 Insulin Aspart (Novolog Insulin Pen) 6 unit AC MEALS SC Last administered on 07/10/18at 12:08; Admin Dose 6 UNIT; Start 07/10/18 at 07:00 Atorvastatin Calcium (Lipitor) 10 mg DAILY@21 PO ; Start 07/10/18 at 21:00 Insulin Glargine (Lantus) 40 units HS SC ; Start 07/10/18 at 00:00 Miscellaneous Information 1 ea NOTE XX ; Start 07/10/18 at 01:00 Glucose (Glutose) 15 gm Q15M PRN PO DECREASED GLUCOSE; Start 07/10/18 at 01:00 Glucose (Glutose) 22.5 gm Q15M PRN PO DECREASED GLUCOSE; Start 07/10/18 at 01:00 Dextrose (D50w Syringe) 25 ml Q15M PRN IV DECREASED GLUCOSE; Start 07/10/18 at 01:00 Dextrose (D50w Syringe) 50 ml Q15M PRN IV DECREASED GLUCOSE; Start 07/10/18 at 01:00 Glucagon (Glucagen) 1 mg Q15M PRN IM DECREASED GLUCOSE; Start 07/10/18 at 01:00 Glucose (Glutose) 15 gm Q15M PRN BUCCAL DECREASED GLUCOSE; Start 07/10/18 at 01:00 Furosemide (Lasix) 40 mg BID DIURETICS IV ; Start 07/10/18 at 18:00 JEMIMA JEAN BAPTISTE MD Jul 10, 2018 16:00
[2018-07-10] MEDS: FUROSEMIDE 20 MG INJ IV SCH (17:06)
[2018-07-10] MEDS: ATORVASTATIN 10 MG TAB PO SCH (21:30)
[2018-07-10] MEDS: ACETAMINOPHEN 325 MG TAB PO PRN (21:31)
[2018-07-11] VITALS: PULSE 81
[2018-07-11 01:58] VITALS: BP 110/56; PULSE 82; RESP 18
[2018-07-11] MEDS: ACETAMINOPHEN 325 MG TAB PO PRN (04:47)
[2018-07-11] MEDS: FUROSEMIDE 20 MG INJ IV SCH ×2 (05:52→17:40)
[2018-07-11 07:26] VITALS: BP 115/55; PULSE 85; RESP 20
[2018-07-11] MEDS: GABAPENTIN 100 MG CAP PO SCH ×3 (08:59→20:48)
[2018-07-11] MEDS: NIFEdipine (XL) 60 MG TAB PO SCH (09:00)
[2018-07-11] MEDS: FOLIC ACID 1 MG TAB PO SCH (09:00)
[2018-07-11] MEDS: ASPIRIN (EC) 81 MG TAB PO SCH (09:00)
[2018-07-11] MEDS: INSULIN ASPART [NOVOLOG] 3 ML PEN SC SCH ×3 (09:02→17:36)
--- NOTE | 2018-07-11 09:59 | PN ---
DATE: 07/11/2018 SUBJECTIVE: The patient is stable. I spoke with the patient in detail this morning about a level of renal function. The patient denies any nausea, vomiting, or any shortness of breath. OBJECTIVE: VITAL SIGNS: Blood pressure is 115/55, respirations 20, pulse 85, temperature 98.4. HEENT: Head is normocephalic. NECK: Supple. HEART: Regular rate. LUNGS: Show diminished breath sounds at the base. ABDOMEN: Soft, nontender to palpation. No rebound or guarding. EXTREMITIES: Negative for clubbing, cyanosis, no edema. DERMATOLOGIC: No rashes. MUSCULOSKELETAL: No joint effusion. NEUROLOGIC: No change in exam. MEDICATIONS: Reviewed. LABORATORY DATA: From 07/11/2018 has been reviewed. ASSESSMENT AND PLAN: 1. Nonoliguric acute kidney injury on top of chronic kidney disease stage IV with previous creatinin e around 2.0 mg/dL. Etiology of current acute kidney injury is secondary to hemodynamics, possible c ardiorenal syndrome. The patient may also have had progression of underlying chronic kidney disease. The patient appears to be in injury phase of acute kidney injury. His renal function has declined in the last 24 hours. At this point, we will deescalate diuretic therapy in order to enable fluid to mobilize. We will otherwise continue to monitor renal function closely. No immediate need for mignon l replacement therapy. We will continue renally dose all medicines and avoid nephrotoxins. 2. Volume overload. Etiology may be multifactorial secondary to decompensated heart failure, possib le nephrotic syndrome. The patient previously had evidence of nephrotic range proteinuria. A repeat protein creatinine ratio is pending. We will adjust diuretic regimen as stated above. Continue to monitor renal function closely. 3. Mild hyperkalemia. The patient will be placed on renal diet. 4. Anemia. Monitor hemoglobin and hematocrit levels. 5. Mineral bone disorder. Monitor calcium and phosphorus levels. 6. 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 The patient has had previous serological workup in the past, which has been negative. Shon nehemias current treatment plan. Otherwise, continue disease factor modification. 7. Diabetes. Continue current insulin regimen. 8. Hypertension. Continue current blood pressure regimen. 9. History of peripheral vascular disease status post bypass. 10. Dyslipidemia. Continue statin therapy. Dictated By: CARORL EMERY/ANJU Conf#: [id number] DID#: [id number] CC: JEMIMA JEAN BAPTISTE MD; JUNIOR GILL MD;*[facility]*
[2018-07-11] MEDS ORDERED: EPOETIN 10000 UNITS/1 ML INJ (ESRD) SC ONE (10:00)
--- NOTE | 2018-07-11 10:37 | RADRPT ---
Echocardiogram Report Patient Name: OLIVIER CASONPatient ID: [id number] : 1980 (37y 10m)Study Date: 07/10/2018 7:21:04 AM Gender: FAccession #: [id number] Tech: CharlesSherine Dela Cruz [facility] Location: 62 Ref.Physician: JUNIOR GILL Height(Cm): BSA: Weight(Kg): Quality: AdequateAccount #: Procedures: Echocardiographic Report: Transthoracic echocardiogram with complete 2D, M-Mode, and doppler examination. Indications: Congestive Heart Failure. Measurements: 2D/M Mode Doppler Measurement Value Normal Range Measurement Value Normal Range LVIDd 2D 4.9 [ 3.8 - 5.2 ] cm AV Peak Paco 1.1 [ 100.0 - 170.0 ] cm/sec LVIDs 2D 3.8 [ 2.2 - 3.5 ] cm AV Peak PG 5.0 [ 2.0 - 9.0 ] mmHg LVPWd 2D 1.2 [ 0.6 - 0.9 ] cm LVOT Peak Paco 0.8 [ 70.0 - 110.0 ] cm/sec IVSd 2D 1.2 [ 0.6 - 0.9 ] cm LVOT Peak PG 3.0 [ 2.0 - 6.0 ] mmHg AoR Diam 2D 2.5 [ 2.3 - 3.1 ] cm MV E Peak Paco 0.7 [ 60.0 - 130.0 ] cm/sec EDV 2D 116.0 [ 46.0 - 106.0 ] ml MV A Peak Paco 0.5 [ 100.0 - 120.0 ] cm/sec ESV 2D 62.0 [ 14.0 - 42.0 ] ml MV E/A 1.4 [ 0.8 - 1.5 ] ratio EF 2D 46.6 [ 54.0 - 74.0 ] percent MV Decel Time 148 [ 104 - 258 ] msec LA Dimen 2D 4.3 [ 2.7 - 3.8 ] cm Lat E` Paco 0.1 [ 10.0 - 15.0 ] cm/sec Lateral E/E` 7.0 [ 1.0 - 2.0 ] ratio MV E/A 1.4 [ 0.8 - 1.5 ] ratio TR Peak Paco 3.2 [ 100.0 - 280.0 ] cm/sec TR Peak PG 40.0 mmHg RVSP 50.0 [ 10.0 - 36.0 ] mmHg RA Pressure 10.0 mmHg Findings: Left Ventricle: Lower limits of normal systolic function. Normal left ventricular cavity size. Mild concentric left ventricular hypertrophy. Ejection fraction is visually estimated at 50 %. Tissue Doppler/Mitral Doppler indices are within normal limits. Right Ventricle: Normal right ventricular size. Normal right ventricular systolic function. Left Atrium: There is mild enlargement of left atrium. Right Atrium: The right atrium is normal in size. Mitral Valve: Mitral valve leaflets appear mildly thickened. Mild mitral annular calcification. Mild to moderate mitral valve regurgitation. Aortic Valve: Normal appearance of the aortic valve. No significant aortic stenosis or insufficiency. Tricuspid Valve: Normal appearance of the tricuspid valve. Estimated peak PA systolic pressure 50 mmHg. There is trace to mild tricuspid regurgitation. Pulmonic Valve: Pulmonic valve not well visualized. Pericardium: Normal pericardium with no significant pericardial effusion. Pleural effusion seen. Aorta: Normal aortic root. IVC: Normal size and normal respiratory collapse consistent with normal right atrial pressure. Conclusions: Lower limits of normal systolic function. Normal left ventricular cavity size. Mild concentric left ventricular hypertrophy. Ejection fraction is visually estimated at 50 %. Tissue Doppler/Mitral Doppler indices are within normal limits. There is mild enlargement of left atrium. Mitral valve leaflets appear mildly thickened. Mild mitral annular calcification. Mild to moderate mitral valve regurgitation. Normal appearance of the aortic valve. No significant aortic stenosis or insufficiency. Normal appearance of the tricuspid valve. Estimated peak PA systolic pressure 50 mmHg. There is trace to mild tricuspid regurgitation. Electronically Signed By: Inderjit Bettencourt 2018-07-11 10:36:41 PDT
[2018-07-11] MEDS: SEVELAMER CARBONATE 800 MG TABLET PO SCH ×2 (12:54→17:34)
[2018-07-11] MEDS: HYDROCODONE/APAP (5/325) TAB PO PRN ×3 (13:01→23:00)
[2018-07-11 14:13] VITALS: BP 94/50; PULSE 81; RESP 20
--- NOTE | 2018-07-11 16:22 | PN ---
Date/Time of Note Date/Time of Note DATE: 07/11/18 TIME: 16:21 Assessment/Plan VTE Prophylaxis Risk score (from Ns)>0 risk: 1 SCD applied (from Nsg): Yes Pharmacological prophylaxis: heparin Lines/Catheters IV Catheter Type (from Nrsg): Saline Lock Urinary Cath still in place: No Assessment/Plan Hospital Course 37 yo female with DMII and CKD III who presents with volume overload from renal failure - Continue diuresis - Renal management per Dr Begum DMII: - Basal/bolus insulin Iron deficiency anemia: - IV ferrlicit Result Diagram: 07/11/188 07/11/18427 Results 24hrs Laboratory Tests Test 07/10/18 17:08 07/10/18 21:24 07/11/18 00:00 07/11/18 04:28 Bedside Glucose 198 131 Urine Color STRAW Urine Clarity CLEAR Urine pH 8.0 Urine Specific [place] 1.008 Urine Ketones NEGATIVE Urine Nitrite NEGATIVE Urine Bilirubin NEGATIVE Urine Urobilinogen NEGATIVE Urine Leukocyte Esterase NEGATIVE Urine Microscopic RBC 1 Urine Microscopic WBC 1 Urine Hemoglobin NEGATIVE Urine Random Creatinine 21.59 Urine Random Sodium 120 H Urine Glucose 1+ H Urine Total Protein 179.0 H White Blood Count 8.0 Red Blood Count 2.73 L Hemoglobin 7.0 L Hematocrit 23.2 L Mean Corpuscular Volume 85.0 Mean Corpuscular 25.6 L Hemoglobin Mean Corpuscular 30.2 L Hemoglobin Concent Red Cell Distribution 16.1 H Width Platelet Count 258 Mean Platelet Volume 10.6 H Immature Granulocytes % 0.400 Neutrophils % 65.5 Lymphocytes % 22.5 Monocytes % 8.4 Eosinophils % 2.8 Basophils % 0.4 Nucleated Red Blood 0.0 Cells % Immature Granulocytes # 0.030 Neutrophils # 5.2 Lymphocytes # 1.8 Monocytes # 0.7 Eosinophils # 0.2 Basophils # 0.0 Nucleated Red Blood 0.0 Cells # Sodium Level 138 Potassium Level 5.2 H Chloride Level 108 Carbon Dioxide Level 21 Anion Gap 9 Blood Urea Nitrogen 50 H Creatinine 3.42 H Est Glomerular Filtrat 15 L Rate mL/min Glucose Level 161 Calcium Level 7.5 L Phosphorus Level 6.3 H Magnesium Level 2.0 Test 07/11/18 06:00 07/11/18 08:25 07/11/18 12:51 07/11/18 16:05 Iron Level 23 L Total Iron Binding 347 Capacity Percent Iron Saturation 7 L Ferritin 11.1 Bedside Glucose 158 97 77 Subjective 24 Hr Interval Summary Free Text/Dictation Volume status improving Feels ok, still with pain in legs though Exam/Review of Systems Exam Vitals Vital Signs Date Temp Pulse Resp B/P (MAP) Pulse Ox O2 O2 Flow FiO2 Time Delivery Rate 07/11/18 98.0 81 20 94/50 (65) 97 14:13 07/11/18 Room Air 01:58 07/10/18 2.0 22:07 07/09/18 100 21:12 Intake and Output 07/10/18 07/10/18 07/11/18 1515:00 23:00 07:00 IntakeIntake Total 1140 ml 480 ml OutputOutput Total 1000 ml BalanceBalance 140 ml 480 ml Constitutional: alert, oriented, well developed Psych: no complaints, nl mood/affect Head: normocephalic, atraumatic Eyes: nl conjunctiva, EOMI, nl lids, nl sclera, PERRL ENMT: nl external ears & nose, nl lips & teeth, nl nasal mucosa & septum Neck: supple, non-tender Respiratory: clear to auscultation, normal air movement Cardiovascular: regular rate and rhythm, nl pulses Gastrointestinal: soft, nl liver, spleen, non-tender Musculoskeletal: nl extremities to inspection, nl gait and stance Extremities: normal pulses Neurological: TRANSFER CLERK II-XII intact, nl mental status, nl speech, nl strength Skin: nl turgor; No rash or lesions Lymph: nl lymph nodes Results Results 24hrs Laboratory Tests Test 07/10/18 17:08 07/10/18 21:24 07/11/18 00:00 07/11/18 04:28 Bedside Glucose 198 131 Urine Color STRAW Urine Clarity CLEAR Urine pH 8.0 Urine Specific [place] 1.008 Urine Ketones NEGATIVE Urine Nitrite NEGATIVE Urine Bilirubin NEGATIVE Urine Urobilinogen NEGATIVE Urine Leukocyte Esterase NEGATIVE Urine Microscopic RBC 1 Urine Microscopic WBC 1 Urine Hemoglobin NEGATIVE Urine Random Creatinine 21.59 Urine Random Sodium 120 H Urine Glucose 1+ H Urine Total Protein 179.0 H White Blood Count 8.0 Red Blood Count 2.73 L Hemoglobin 7.0 L Hematocrit 23.2 L Mean Corpuscular Volume 85.0 Mean Corpuscular 25.6 L Hemoglobin Mean Corpuscular 30.2 L Hemoglobin Concent Red Cell Distribution 16.1 H Width Platelet Count 258 Mean Platelet Volume 10.6 H Immature Granulocytes % 0.400 Neutrophils % 65.5 Lymphocytes % 22.5 Monocytes % 8.4 Eosinophils % 2.8 Basophils % 0.4 Nucleated Red Blood 0.0 Cells % Immature Granulocytes # 0.030 Neutrophils # 5.2 Lymphocytes # 1.8 Monocytes # 0.7 Eosinophils # 0.2 Basophils # 0.0 Nucleated Red Blood 0.0 Cells # Sodium Level 138 Potassium Level 5.2 H Chloride Level 108 Carbon Dioxide Level 21 Anion Gap 9 Blood Urea Nitrogen 50 H Creatinine 3.42 H Est Glomerular Filtrat 15 L Rate mL/min Glucose Level 161 Calcium Level 7.5 L Phosphorus Level 6.3 H Magnesium Level 2.0 Test 07/11/18 06:00 07/11/18 08:25 07/11/18 12:51 07/11/18 16:05 Iron Level 23 L Total Iron Binding 347 Capacity Percent Iron Saturation 7 L Ferritin 11.1 Bedside Glucose 158 97 77 Medications Medication Current Medications Dextrose (D50w Syringe) ONCE PRN IV DECREASED GLUCOSE; Start 07/09/18 at 23:30 IV Flush (NS 3 ml) 3 ml PER PROTOCOL IV ; Start 07/10/18 at 00:00 Ondansetron HCl (Zofran Inj) 4 mg Q6H PRN IV NAUSEA/VOMITING; Start 07/10/18 at 00:00 Nitroglycerin (Nitroglycerin (Sl Tab) 0.4 Mg) 1 tab Q5M PRN SL .CHEST PAIN; Start 07/10/18 at 00:00 Acetaminophen (Tylenol Tab) 650 mg Q6H PRN PO .PAIN 1-3 OR TEMP Last administered on 07/11/18at 04:47; Admin Dose 650 MG; Start 07/10/18 at 00:00 Albuterol/ Ipratropium (Duoneb) 3 ml Q2H RESP THERAPY PRN HHN SHORTNESS OF BREATH; Start 07/10/18 at 00:00 Aspirin (Halfprin) 81 mg DAILY PO Last administered on 07/11/18at 09:00; Admin Dose 81 MG; Start 07/10/18 at 09:00 Carvedilol (Coreg) 12.5 mg BID PO Last administered on 07/11/18at 09:00; Admin Dose 12.5 MG; Start 07/10/18 at 00:00 Folic Acid (Folic Acid) 1 mg DAILY PO Last administered on 07/11/18 09:00; Admin Dose 1 MG; Start 07/10/18 at 09:00 Gabapentin (Neurontin) 100 mg TID PO Last administered on 07/11/18 12:54; Admin Dose 100 MG; Start 07/10/18 at 09:00 Nifedipine (Procardia Xl) 60 mg DAILY PO Last administered on 07/11/18 09:00; Admin Dose 60 MG; Start 07/10/18 at 09:00 Insulin Aspart (Novolog Insulin Pen) 6 unit AC MEALS SC Last administered on 07/11/18 13:01; Admin Dose 6 UNIT; Start 07/10/18 at 07:00 Atorvastatin Calcium (Lipitor) 10 mg DAILY@21 PO Last administered on 07/10/18 21:30; Admin Dose 10 MG; Start 07/10/18 at 21:00 Insulin Glargine (Lantus) 40 units HS SC Last administered on 07/10/18 21:52; Admin Dose 40 UNITS; Start 07/10/18 at 00:00 Miscellaneous Information 1 ea NOTE XX ; Start 07/10/18 at 01:00 Glucose (Glutose) 15 gm Q15M PRN PO DECREASED GLUCOSE; Start 07/10/18 at 01:00 Glucose (Glutose) 22.5 gm Q15M PRN PO DECREASED GLUCOSE; Start 07/10/18 at 01:00 Dextrose (D50w Syringe) 25 ml Q15M PRN IV DECREASED GLUCOSE; Start 07/10/18 at 01:00 Dextrose (D50w Syringe) 50 ml Q15M PRN IV DECREASED GLUCOSE; Start 07/10/18 at 01:00 Glucagon (Glucagen) 1 mg Q15M PRN IM DECREASED GLUCOSE; Start 07/10/18 at 01:00 Glucose (Glutose) 15 gm Q15M PRN BUCCAL DECREASED GLUCOSE; Start 07/10/18 at 01:00 Furosemide (Lasix) 40 mg BID DIURETICS IV Last administered on 07/11/18 05:52; Admin Dose 40 MG; Start 07/10/18 at 18:00 Sevelamer Carbonate (Renvela) 800 mg WITH MEALS PO Last administered on 07/11/18 12:54; Admin Dose 800 MG; Start 07/11/18 at 12:00 Acetaminophen/ Hydrocodone Bitart (Schneider (5/325)) 1 tab Q4H PRN PO MODERATE PAIN LEVEL 4-6 Last administered on 07/11/18at 13:01; Admin Dose 1 TAB; Start 07/11/18 at 11:30 JEMIMA JEAN BAPTISTE MD Jul 11, 2018 16:22
[2018-07-11] MEDS: SOD FERRIC GLUC COMPLX 125 MG in SOD CHLORIDE 0.9% 100 ML IVPB SCH (18:46)
[2018-07-11 20:07] VITALS: BP 128/65; PULSE 85; RESP 18
[2018-07-11] MEDS: ATORVASTATIN 10 MG TAB PO SCH (20:48)
[2018-07-11] MEDS: INSULIN GLARGINE [LANTus] (100 UNITS/ML) SYG SC SCH (20:52)
[2018-07-12 01:56] VITALS: BP 122/56; PULSE 78; RESP 18
[2018-07-12] MEDS: HYDROCODONE/APAP (5/325) TAB PO PRN ×4 (04:15→20:51)
[2018-07-12] MEDS: FUROSEMIDE 20 MG INJ IV SCH ×2 (05:34→10:24)
[2018-07-12 07:48] VITALS: BP 93/53; PULSE 84; RESP 17
[2018-07-12] MEDS: SEVELAMER CARBONATE 800 MG TABLET PO SCH ×3 (08:00→17:59)
[2018-07-12] MEDS: FOLIC ACID 1 MG TAB PO SCH (08:26)
[2018-07-12] MEDS: NIFEdipine (XL) 60 MG TAB PO SCH (08:26)
[2018-07-12] MEDS: ASPIRIN (EC) 81 MG TAB PO SCH (08:26)
[2018-07-12] MEDS: GABAPENTIN 100 MG CAP PO SCH ×3 (08:26→20:51)
[2018-07-12] MEDS: INSULIN ASPART [NOVOLOG] 3 ML PEN SC SCH ×3 (08:29→17:58)
--- NOTE | 2018-07-12 09:13 | PN ---
DATE: 07/12/2018 SUBJECTIVE: The patient is stable, no events overnight. No fevers, chills, nausea, or vomiting. OBJECTIVE: VITAL SIGNS: Blood pressure is 93/53, respirations 17, pulse 84, temperature 98.8. HEENT: Head is normocephalic. NECK: Supple. HEART: Regular rate. LUNGS: Show diminished breath sounds at the base. ABDOMEN: Soft, nontender to palpation without rebound or guarding. EXTREMITIES: Negative for clubbing, cyanosis. Positive edema. DERMATOLOGIC: No rashes. MUSCULOSKELETAL: No joint effusion. NEUROLOGIC: No change in exam. MEDICATIONS: Reviewed. LABORATORY DATA: Reviewed. ASSESSMENT AND PLAN: 1. Nonoliguric acute kidney injury on top of chronic kidney disease stage IV with a previous EGFR ar ound 20 mL per minute per patient. Etiology of acute kidney injury is secondary to hemodynamics poss ible cardiorenal syndrome. The patient may have also had progression of underlying chronic kidney di sease. The patient's renal function has declined in the last 48 hours in part due to diuretic therap y. Plan at this point is to the escalate diuretic therapy in order to let fluid to mobilize. Please note I spoke with the patient about the possibility of hemodialysis in the near future if renal func tion does not improve. Otherwise, continue current treatment plan, supportive care, renally dose all medicines, no immediate need for renal replacement therapy. 2. Volume overload, etiology is multifactorial secondary to congestive heart failure also nephrotic syndrome. The patient has nephrotic range proteinuria, lower extremity edema and is hypoalbuminemic. We will continue to monitor. Continue diuretic therapy, adjust as stated above. We would defer AC E inhibitor at this time in the setting of acute kidney injury, may be reintroduced once the patient' s renal function is stabilized. 3. Chronic kidney disease secondary to diabetic nephropathy with possible nephrotic syndrome. Shon nue current medical management as above. Hold PEDRO inhibitor or ARB in the setting of acute kidney in jury. 4. Mild hypokalemia, improved. 5. Anemia with iron deficiency. Continue IV iron. We will continue intermittent Epogen as needed. 6. Mineral bone disorder. Continue phosphate binders, monitor calcium and phosphorus levels. 7. Diabetes. Continue current insulin regimen. 8. Hypertension. Continue current blood pressure regimen. 9. Peripheral vascular disease. 10. Dyslipidemia. Dictated By: CARROL EMERY/ANJU Conf#: [id number] DID#: [id number] CC: JEMIMA JEAN BAPTISTE MD; JUNIOR GILL MD;*[facility]*
[2018-07-12] MEDS: SOD FERRIC GLUC COMPLX 125 MG in SOD CHLORIDE 0.9% 100 ML IVPB SCH (13:16)
[2018-07-12] MEDS: ACETAMINOPHEN 325 MG TAB PO PRN (13:17)
[2018-07-12] MEDS: POLYETHYLENE GLYCOL 17 GM PACKET NGT SCH ×2 (13:21→20:50)
[2018-07-12 14:29] VITALS: BP 118/58; PULSE 85; RESP 16
--- NOTE | 2018-07-12 17:28 | PN ---
Date/Time of Note Date/Time of Note DATE: 07/12/18 TIME: 17:27 Assessment/Plan VTE Prophylaxis Risk score (from Ns)>0 risk: 2 SCD applied (from Nsg): Yes Pharmacological prophylaxis: heparin Lines/Catheters IV Catheter Type (from Nrsg): [place] Urinary Cath still in place: No Assessment/Plan Hospital Course 37 yo female with DMII and CKD III who presents with volume overload from renal failure - Continue diuresis - Renal management per Dr Begum DMII: - Basal/bolus insulin Iron deficiency anemia: - IV ferrlicit Result Diagram: 07/12/1842307/12/18423 Results 24hrs Laboratory Tests Test 07/11/18 17:28 07/11/18 20:49 07/12/18 04:24 07/12/18 08:10 Bedside Glucose 115 193 145 White Blood Count 8.5 Red Blood Count 2.93 L Hemoglobin 7.5 L Hematocrit 24.8 L Mean Corpuscular Volume 84.6 Mean Corpuscular 25.6 L Hemoglobin Mean Corpuscular 30.2 L Hemoglobin Concent Red Cell Distribution 16.2 H Width Platelet Count 283 Mean Platelet Volume 10.6 H Immature Granulocytes % 0.400 Neutrophils % 62.0 Lymphocytes % 26.0 Monocytes % 8.6 Eosinophils % 2.6 Basophils % 0.4 Nucleated Red Blood 0.0 Cells % Immature Granulocytes # 0.030 Neutrophils # 5.3 Lymphocytes # 2.2 Monocytes # 0.7 Eosinophils # 0.2 Basophils # 0.0 Nucleated Red Blood 0.0 Cells # Sodium Level 136 Potassium Level 4.7 Chloride Level 102 Carbon Dioxide Level 23 Anion Gap 11 Blood Urea Nitrogen 55 H Creatinine 3.63 H Est Glomerular Filtrat 14 L Rate mL/min Glucose Level 114 # Calcium Level 7.4 L Phosphorus Level 6.7 H Magnesium Level 2.0 Test 07/12/18 12:49 Bedside Glucose 122 Subjective 24 Hr Interval Summary Free Text/Dictation Diuretics decreased given ABDIFATAH Otherwise doing well Ear pain Exam/Review of Systems Exam Vitals Vital Signs Date Temp Pulse Resp B/P (MAP) Pulse Ox O2 O2 Flow FiO2 Time Delivery Rate 07/12/18 98.1 85 16 118/58 99 Room Air 14:29 (78) 07/11/18 2.0 20:10 07/09/18 100 21:12 Intake and Output 07/11/18 07/11/18 07/12/18 1414:59 22:59 06:59 IntakeIntake Total 480 ml 590 ml BalanceBalance 480 ml 590 ml Constitutional: alert, oriented, well developed Psych: no complaints, nl mood/affect Head: normocephalic, atraumatic Eyes: nl conjunctiva, EOMI, nl lids, nl sclera, PERRL ENMT: nl external ears & nose, nl lips & teeth, nl nasal mucosa & septum Neck: supple, non-tender Respiratory: clear to auscultation, normal air movement Cardiovascular: regular rate and rhythm, nl pulses Gastrointestinal: soft, nl liver, spleen, non-tender Musculoskeletal: nl extremities to inspection, nl gait and stance Extremities: normal pulses Neurological: HEMODIALYSIS RN II-XII intact, nl mental status, nl speech, nl strength Skin: nl turgor; No rash or lesions Lymph: nl lymph nodes Results Results 24hrs Laboratory Tests Test 07/11/18 17:28 07/11/18 20:49 07/12/18 04:24 07/12/18 08:10 Bedside Glucose 115 193 145 White Blood Count 8.5 Red Blood Count 2.93 L Hemoglobin 7.5 L Hematocrit 24.8 L Mean Corpuscular Volume 84.6 Mean Corpuscular 25.6 L Hemoglobin Mean Corpuscular 30.2 L Hemoglobin Concent Red Cell Distribution 16.2 H Width Platelet Count 283 Mean Platelet Volume 10.6 H Immature Granulocytes % 0.400 Neutrophils % 62.0 Lymphocytes % 26.0 Monocytes % 8.6 Eosinophils % 2.6 Basophils % 0.4 Nucleated Red Blood 0.0 Cells % Immature Granulocytes # 0.030 Neutrophils # 5.3 Lymphocytes # 2.2 Monocytes # 0.7 Eosinophils # 0.2 Basophils # 0.0 Nucleated Red Blood 0.0 Cells # Sodium Level 136 Potassium Level 4.7 Chloride Level 102 Carbon Dioxide Level 23 Anion Gap 11 Blood Urea Nitrogen 55 H Creatinine 3.63 H Est Glomerular Filtrat 14 L Rate mL/min Glucose Level 114 # Calcium Level 7.4 L Phosphorus Level 6.7 H Magnesium Level 2.0 Test 07/12/18 12:49 Bedside Glucose 122 Medications Medication Current Medications Dextrose (D50w Syringe) ONCE PRN IV DECREASED GLUCOSE; Start 07/09/18 at 23:30 IV Flush (NS 3 ml) 3 ml PER PROTOCOL IV ; Start 07/10/18 at 00:00 Ondansetron HCl (Zofran Inj) 4 mg Q6H PRN IV NAUSEA/VOMITING; Start 07/10/18 at 00:00 Nitroglycerin (Nitroglycerin (Sl Tab) 0.4 Mg) 1 tab Q5M PRN SL .CHEST PAIN; Start 07/10/18 at 00:00 Acetaminophen (Tylenol Tab) 650 mg Q6H PRN PO .PAIN 1-3 OR TEMP Last administered on 07/12/18 13:17; Admin Dose 650 MG; Start 07/10/18 at 00:00 Albuterol/ Ipratropium (Duoneb) 3 ml Q2H RESP THERAPY PRN HHN SHORTNESS OF BREATH; Start 07/10/18 at 00:00 Aspirin (Halfprin) 81 mg DAILY PO Last administered on 07/12/18 08:26; Admin Dose 81 MG; Start 07/10/18 at 09:00 Carvedilol (Coreg) 12.5 mg BID PO Last administered on 07/11/18 20:48; Admin Dose 12.5 MG; Start 07/10/18 at 00:00 Folic Acid (Folic Acid) 1 mg DAILY PO Last administered on 07/12/18 08:26; Admin Dose 1 MG; Start 07/10/18 at 09:00 Gabapentin (Neurontin) 100 mg TID PO Last administered on 07/12/18 12:52; Admin Dose 100 MG; Start 07/10/18 at 09:00 Nifedipine (Procardia Xl) 60 mg DAILY PO Last administered on 07/11/18 09:00; Admin Dose 60 MG; Start 07/10/18 at 09:00 Insulin Aspart (Novolog Insulin Pen) 6 unit AC MEALS SC Last administered on 07/12/18 13:20; Admin Dose 6 UNIT; Start 07/10/18 at 07:00 Atorvastatin Calcium (Lipitor) 10 mg DAILY@21 PO Last administered on 07/11/18 20:48; Admin Dose 10 MG; Start 07/10/18 at 21:00 Insulin Glargine (Lantus) 40 units HS SC Last administered on 07/11/18 20:52; Admin Dose 40 UNITS; Start 07/10/18 at 00:00 Miscellaneous Information 1 ea NOTE XX ; Start 07/10/18 at 01:00 Glucose (Glutose) 15 gm Q15M PRN PO DECREASED GLUCOSE; Start 07/10/18 at 01:00 Glucose (Glutose) 22.5 gm Q15M PRN PO DECREASED GLUCOSE; Start 07/10/18 at 01:00 Dextrose (D50w Syringe) 25 ml Q15M PRN IV DECREASED GLUCOSE; Start 07/10/18 at 01:00 Dextrose (D50w Syringe) 50 ml Q15M PRN IV DECREASED GLUCOSE; Start 07/10/18 at 01:00 Glucagon (Glucagen) 1 mg Q15M PRN IM DECREASED GLUCOSE; Start 07/10/18 at 01:00 Glucose (Glutose) 15 gm Q15M PRN BUCCAL DECREASED GLUCOSE; Start 07/10/18 at 01:00 Acetaminophen/ Hydrocodone Bitart ([place] (5/325)) 1 tab Q4H PRN PO MODERATE PAIN LEVEL 4-6 Last administered on 07/12/18 16:07; Admin Dose 1 TAB; Start 07/11/18 at 11:30 Ferric Sodium Gluconate Complex 125 mg/Sodium Chloride 110 ml @ 110 mls/hr DAILY@1300 IVPB Last administered on 07/12/18 13:16; Admin Dose 110 MLS/HR; Start 07/11/18 at 16:30; Stop 07/15/18 at 13:59 Sevelamer Carbonate (Renvela) 1,600 mg WITH MEALS PO Last administered on 07/12/18 12:51; Admin Dose 1,600 MG; Start 07/12/18 at 12:00 Furosemide (Lasix) 40 mg DAILY IV Last administered on 07/12/18at 10:24; Admin Dose 40 MG; Start 07/12/18 at 09:00 Polyethylene Glycol (Miralax) 17 gm BID NGT Last administered on 07/12/18 13:21; Admin Dose 17 GM; Start 07/12/18 at 12:30 JEMIMA JEAN BAPTISTE MD Jul 12, 2018 17:28
[2018-07-12 19:39] VITALS: BP 103/57; PULSE 84; RESP 18
[2018-07-12 19:47] VITALS: BP 126/62; PULSE 87; RESP 18
[2018-07-12] MEDS: CARBAMIDE PEROXIDE 6.5% 15ML OTIC RIGHT EAR SCH (20:50)
[2018-07-12] MEDS: ATORVASTATIN 10 MG TAB PO SCH (20:51)
[2018-07-12] MEDS: INSULIN GLARGINE [LANTus] (100 UNITS/ML) SYG SC SCH (21:01)
[2018-07-13] MEDS: HYDROCODONE/APAP (5/325) TAB PO PRN ×4 (01:44→21:43)
[2018-07-13 01:48] VITALS: BP 112/56; PULSE 95; RESP 18
[2018-07-13] MEDS: SEVELAMER CARBONATE 800 MG TABLET PO SCH ×3 (08:07→17:11)
[2018-07-13] MEDS: GABAPENTIN 100 MG CAP PO SCH ×3 (08:07→21:40)
[2018-07-13] MEDS: FOLIC ACID 1 MG TAB PO SCH (08:07)
[2018-07-13] MEDS: ASPIRIN (EC) 81 MG TAB PO SCH (08:07)
[2018-07-13] MEDS: CARBAMIDE PEROXIDE 6.5% 15ML OTIC RIGHT EAR SCH ×2 (08:08→21:40)
[2018-07-13] MEDS: POLYETHYLENE GLYCOL 17 GM PACKET NGT SCH (08:08)
[2018-07-13] MEDS: INSULIN ASPART [NOVOLOG] 3 ML PEN SC SCH ×3 (08:11→17:15)
[2018-07-13] MEDS: FUROSEMIDE 20 MG INJ IV SCH (08:14)
[2018-07-13] MEDS: NIFEdipine (XL) 60 MG TAB PO SCH (08:14)
[2018-07-13 08:30] VITALS: BP 126/60; PULSE 85; RESP 18
--- NOTE | 2018-07-13 08:47 | PN ---
DATE: 07/13/2018 SUBJECTIVE: The patient is stable, no events overnight. No fevers, chills, nausea, or vomiting. Th e patient's swelling has improved. No other acute events noted. OBJECTIVE: VITAL SIGNS: Blood pressure is 112/56, respirations 18, pulse 95, temperature 98.3. HEENT: Head is normocephalic. NECK: Supple. HEART: Regular rate. LUNGS: Show diminished breath sounds at the base. ABDOMEN: Soft, nontender to palpation without rebound or guarding. EXTREMITIES: Negative for clubbing, cyanosis. Trace edema. DERMATOLOGIC: No rashes. MUSCULOSKELETAL: No joint effusion. NEUROLOGIC: No change in exam. MEDICATIONS: Reviewed. LABORATORY DATA: Shows sodium 135, potassium 5.3, BUN 64, creatinine 3.96, phosphorus 6.4. White co unt 8.8, hemoglobin 7.2, platelet count is 258. ASSESSMENT AND PLAN: 1. Nonoliguric acute kidney injury on top of chronic kidney disease stage IV with previous EGFR of a pproximately 20 mL per minute per patient. Etiology of current acute kidney injury is secondary to h emodynamics, cardiorenal syndrome, diuretics. The patient's renal function has declined in the last 48 hours, likely due to diuretic therapy. Plan at this point is to stop Lasix. We will monitor mignon l function closely. If renal function further declines, we may consider a gentle course of IV fluids . Otherwise, we will continue current treatment plan, supportive care, renally dose all medicines, n o immediate need for renal replacement therapy at this time. 2. Mild hyperkalemia secondary to acute kidney injury. Continue the patient on low-potassium diet. Monitor potassium levels closely. 3. Volume overload. Etiology is multifactorial, likely secondary to congestive heart failure, nephr otic syndrome. The patient is clinically improving. Diuretic therapy is currently on hold due to wo rsening renal function. We will continue to monitor. 4. Chronic kidney disease, secondary to diabetic nephropathy, with possible nephrotic syndrome. Con tinue current medical management as stated above. Hold PEDRO inhibitor or ARB at this time. 5. Anemia with iron deficiency. Continue IV iron. Continue intermittent Epogen. 6. Mineral bone disorder, monitor calcium and phosphorus levels. Continue phosphate binders. 7. Diabetes. Continue current insulin regimen. 8. Hypertension. The patient is currently normotensive. Continue to monitor. 9. Peripheral vascular disease. Dictated By: CARROL PRATT DO NR/ANJU Conf#: [id number] DID#: [id number] CC: JUNIOR GILL MD; JEMIMA JEAN BAPTISTE MD;*EndCC*
[2018-07-13] MEDS: SOD FERRIC GLUC COMPLX 125 MG in SOD CHLORIDE 0.9% 100 ML IVPB SCH (13:24)
[2018-07-13 14:50] VITALS: BP 93/52; PULSE 81; RESP 18
--- NOTE | 2018-07-13 15:06 | PN ---
Date/Time of Note Date/Time of Note DATE: 07/13/18 TIME: 15:05 Assessment/Plan VTE Prophylaxis Risk score (from Ns)>0 risk: 1 SCD applied (from Nsg): Yes Pharmacological prophylaxis: heparin Lines/Catheters IV Catheter Type (from Nrsg): Peripheral IV Urinary Cath still in place: No Assessment/Plan Hospital Course 37 yo female with DMII and CKD III who presents with volume overload from renal failure - Diuresis has been held given ABDIFATAH - Renal management per Dr Begum DMII: - Basal/bolus insulin Iron deficiency anemia: - IV ferrlicit Result Diagram: 07/13/18 0420 07/13/18 0438 Results 24hrs Laboratory Tests Test 07/12/18 17:54 07/12/18 20:56 07/13/18 04:20 07/13/18 04:38 Bedside Glucose 111 81 White Blood Count 8.8 Red Blood Count 2.79 L Hemoglobin 7.2 L Hematocrit 23.6 L Mean Corpuscular Volume 84.6 Mean Corpuscular 25.8 L Hemoglobin Mean Corpuscular 30.5 L Hemoglobin Concent Red Cell Distribution 16.2 H Width Platelet Count 258 Mean Platelet Volume 11.1 H Immature Granulocytes % 0.900 H Neutrophils % 58.4 Lymphocytes % 27.2 Monocytes % 9.9 Eosinophils % 3.0 Basophils % 0.6 Nucleated Red Blood 0.0 Cells % Immature Granulocytes # 0.080 H Neutrophils # 5.1 Lymphocytes # 2.4 Monocytes # 0.9 Eosinophils # 0.3 Basophils # 0.1 Nucleated Red Blood 0.0 Cells # Sodium Level 135 Potassium Level 5.3 H Chloride Level 100 Carbon Dioxide Level 23 Anion Gap 12 Blood Urea Nitrogen 64 H Creatinine 3.96 H Est Glomerular Filtrat 13 L Rate mL/min Glucose Level 124 Calcium Level 7.2 L Phosphorus Level 6.4 H Magnesium Level 2.0 Test 07/13/18 08:05 07/13/18 13:17 Bedside Glucose 121 120 Subjective 24 Hr Interval Summary Free Text/Dictation Renal function worsening so diuretics held Feels ok Exam/Review of Systems Exam Vitals Vital Signs Date Temp Pulse Resp B/P (MAP) Pulse Ox O2 O2 Flow FiO2 Time Delivery Rate 07/13/18 98.1 81 18 93/52 (66) 96 Room Air 14:50 07/11/18 2.0 20:10 07/09/18 100 21:12 Intake and Output 07/12/18 07/12/18 07/13/18 1515:00 23:00 07:00 IntakeIntake Total 350 ml 240 ml BalanceBalance 350 ml 240 ml Constitutional: alert, oriented, well developed Psych: no complaints, nl mood/affect Head: normocephalic, atraumatic Eyes: nl conjunctiva, EOMI, nl lids, nl sclera, PERRL ENMT: nl external ears & nose, nl lips & teeth, nl nasal mucosa & septum Neck: supple, non-tender Respiratory: clear to auscultation, normal air movement Cardiovascular: regular rate and rhythm, nl pulses Gastrointestinal: soft, nl liver, spleen, non-tender Musculoskeletal: nl extremities to inspection, nl gait and stance Extremities: normal pulses Neurological: [employer] II-XII intact, nl mental status, nl speech, nl strength Skin: nl turgor; No rash or lesions Lymph: nl lymph nodes Results Results 24hrs Laboratory Tests Test 07/12/18 17:54 07/12/18 20:56 07/13/18 04:20 07/13/18 04:38 Bedside Glucose 111 81 White Blood Count 8.8 Red Blood Count 2.79 L Hemoglobin 7.2 L Hematocrit 23.6 L Mean Corpuscular Volume 84.6 Mean Corpuscular 25.8 L Hemoglobin Mean Corpuscular 30.5 L Hemoglobin Concent Red Cell Distribution 16.2 H Width Platelet Count 258 Mean Platelet Volume 11.1 H Immature Granulocytes % 0.900 H Neutrophils % 58.4 Lymphocytes % 27.2 Monocytes % 9.9 Eosinophils % 3.0 Basophils % 0.6 Nucleated Red Blood 0.0 Cells % Immature Granulocytes # 0.080 H Neutrophils # 5.1 Lymphocytes # 2.4 Monocytes # 0.9 Eosinophils # 0.3 Basophils # 0.1 Nucleated Red Blood 0.0 Cells # Sodium Level 135 Potassium Level 5.3 H Chloride Level 100 Carbon Dioxide Level 23 Anion Gap 12 Blood Urea Nitrogen 64 H Creatinine 3.96 H Est Glomerular Filtrat 13 L Rate mL/min Glucose Level 124 Calcium Level 7.2 L Phosphorus Level 6.4 H Magnesium Level 2.0 Test 07/13/18 08:05 07/13/18 13:17 Bedside Glucose 121 120 Medications Medication Current Medications Dextrose (D50w Syringe) ONCE PRN IV DECREASED GLUCOSE; Start 07/09/18 at 23:30 IV Flush (NS 3 ml) 3 ml PER PROTOCOL IV ; Start 07/10/18 at 00:00 Ondansetron HCl (Zofran Inj) 4 mg Q6H PRN IV NAUSEA/VOMITING; Start 07/10/18 at 00:00 Nitroglycerin (Nitroglycerin (Sl Tab) 0.4 Mg) 1 tab Q5M PRN SL .CHEST PAIN; Start 07/10/18 at 00:00 Acetaminophen (Tylenol Tab) 650 mg Q6H PRN PO .PAIN 1-3 OR TEMP Last administered on 07/12/18 13:17; Admin Dose 650 MG; Start 07/10/18 at 00:00 Albuterol/ Ipratropium (Duoneb) 3 ml Q2H RESP THERAPY PRN HHN SHORTNESS OF BREATH; Start 07/10/18 at 00:00 Aspirin (Halfprin) 81 mg DAILY PO Last administered on 07/13/18 08:07; Admin Dose 81 MG; Start 07/10/18 at 09:00 Carvedilol (Coreg) 12.5 mg BID PO Last administered on 07/13/18 08:14; Admin Dose 12.5 MG; Start 07/10/18 at 00:00 Folic Acid (Folic Acid) 1 mg DAILY PO Last administered on 07/13/18 08:07; Admi n Dose 1 MG; Start 07/10/18 at 09:00 Gabapentin (Neurontin) 100 mg TID PO Last administered on 07/13/18 13:17; Admin Dose 100 MG; Start 07/10/18 at 09:00 Nifedipine (Procardia Xl) 60 mg DAILY PO Last administered on 07/13/18 08:14; Admin Dose 60 MG; Start 07/10/18 at 09:00 Insulin Aspart (Novolog Insulin Pen) 6 unit AC MEALS SC Last administered on 07/13/18 13:21; Admin Dose 6 UNIT; Start 07/10/18 at 07:00 Atorvastatin Calcium (Lipitor) 10 mg DAILY@21 PO Last administered on 07/12/18 20:51; Admin Dose 10 MG; Start 07/10/18 at 21:00 Insulin Glargine (Lantus) 40 units HS SC Last administered on 07/12/18 21:01; Admin Dose 40 UNITS; Start 07/10/18 at 00:00 Miscellaneous Information 1 ea NOTE XX ; Start 07/10/18 at 01:00 Glucose (Glutose) 15 gm Q15M PRN PO DECREASED GLUCOSE; Start 07/10/18 at 01:00 Glucose (Glutose) 22.5 gm Q15M PRN PO DECREASED GLUCOSE; Start 07/10/18 at 01:00 Dextrose (D50w Syringe) 25 ml Q15M PRN IV DECREASED GLUCOSE; Start 07/10/18 at 01:00 Dextrose (D50w Syringe) 50 ml Q15M PRN IV DECREASED GLUCOSE; Start 07/10/18 at 01:00 Glucagon (Glucagen) 1 mg Q15M PRN IM DECREASED GLUCOSE; Start 07/10/18 at 01:00 Glucose (Glutose) 15 gm Q15M PRN BUCCAL DECREASED GLUCOSE; Start 07/10/18 at 01:00 Acetaminophen/ Hydrocodone Bitart ([place] (5/325)) 1 tab Q4H PRN PO MODERATE PAIN LEVEL 4-6 Last administered on 07/13/18at 08:11; Admin Dose 1 TAB; Start 07/11/18 at 11:30 Ferric Sodium Gluconate Complex 125 mg/Sodium Chloride 110 ml @ 110 mls/hr DAILY@1300 IVPB Last administered on 07/13/18at 13:24; Admin Dose 110 MLS/HR; Start 07/11/18 at 16:30; Stop 07/15/18 at 13:59 Sevelamer Carbonate (Renvela) 1,600 mg WITH MEALS PO Last administered on 07/13/18at 13:17; Admin Dose 1,600 MG; Start 07/12/18 at 12:00 Carbamide Peroxide (Debrox Otic) 3 drop BID RIGHT EAR Last administered on at 08:08; Admin Dose 3 DROP; Start 07/12/18 at 21:00 Polyethylene Glycol (Miralax) 17 gm BID PO ; Start 07/13/18 at 21:00 JEMIMA JEAN BAPTISTE MD Jul 13, 2018 15:06
[2018-07-13 19:31] VITALS: BP 99/58; PULSE 66; RESP 18
[2018-07-13] MEDS: ATORVASTATIN 10 MG TAB PO SCH (21:40)
[2018-07-13] MEDS: POLYETHYLENE GLYCOL 17 GM PACKET PO SCH (21:40)
[2018-07-13] MEDS: INSULIN GLARGINE [LANTus] (100 UNITS/ML) SYG SC SCH (21:42)
[2018-07-14 01:42] VITALS: BP 102/54; PULSE 84; RESP 18
[2018-07-14 07:32] VITALS: BP 117/57; PULSE 85; RESP 17
[2018-07-14] MEDS: HYDROCODONE/APAP (5/325) TAB PO PRN ×2 (07:35→17:43)
[2018-07-14] MEDS: INSULIN ASPART [NOVOLOG] 3 ML PEN SC SCH ×3 (07:36→17:43)
[2018-07-14] MEDS: SEVELAMER CARBONATE 800 MG TABLET PO SCH ×3 (08:00→17:39)
[2018-07-14] MEDS: POLYETHYLENE GLYCOL 17 GM PACKET PO SCH ×2 (08:17→20:38)
[2018-07-14] MEDS: GABAPENTIN 100 MG CAP PO SCH ×3 (08:17→20:36)
[2018-07-14] MEDS: ASPIRIN (EC) 81 MG TAB PO SCH (08:18)
[2018-07-14] MEDS: FOLIC ACID 1 MG TAB PO SCH (08:18)
[2018-07-14] MEDS: NIFEdipine (XL) 60 MG TAB PO SCH (08:18)
[2018-07-14] MEDS ORDERED: NA POLYST SULFON 15 GM/60 ML BTL PO ONE (08:30)
--- NOTE | 2018-07-14 08:49 | PN ---
DATE: 07/14/2018 SUBJECTIVE: The patient is stable. Patient has got excellent urinary output. Please note I spoke w ith the patient in detail about worsening renal function and the possibility of initiating dialysis i f renal function does not stabilize and/or patient should develop uremic symptoms. The patient voice d understanding. She still is requesting to go home. No other events noted. OBJECTIVE: VITAL SIGNS: Blood pressure is 117/57, respirations 17, pulse 85, temperature 98.5. HEENT: Head is normocephalic. NECK: Supple. HEART: Regular rate. LUNGS: Show diminished breath sounds at the base. ABDOMEN: Soft, nontender to palpation without rebound or guarding. EXTREMITIES: Negative for clubbing, cyanosis. Trace edema. DERMATOLOGIC: No rashes. MUSCULOSKELETAL: No joint effusion. NEUROLOGIC: No change in exam. MEDICATIONS: The patient's medications were reviewed. LABORATORY DATA: Shows a sodium of 134, potassium 5.4, BUN 71, creatinine 4.41, calcium 7.3, phospho mumtaz 6.6. White count 8.5, hemoglobin 7.3 and platelet count is 261. ASSESSMENT AND PLAN: 1. Nonoliguric acute kidney injury on top of chronic kidney disease stage IV with previous EGFR arou nd 20 mL per minute per patient. Etiology of acute kidney injury was initially felt to be secondary to hemodynamics, possible cardiorenal syndrome, diuretics. The patient now may have entered tubular injury. The patient has been off diuretic therapy for the last 48 hours; however, renal function con tinues to decline. Plan is to give the patient a fluid challenge. Will give IV albumin 25% 100 mL I V every 8 hours. Will continue to monitor renal function closely. No overt uremic signs and symptom s. No immediate need for renal replacement therapy. 2. Chronic kidney disease stage IV secondary to diabetes, diabetic nephropathy. The patient is curr ently in acute kidney injury as stated above. Would continue current treatment plan. Otherwise, con tinue disease factor modification. Please note I did speak with the patient regarding possibility of dialysis if renal function does not stabilize and/or if patient should develop uremic signs or sympt oms. 3. Mild hyperkalemia secondary to acute kidney injury and chronic kidney disease. Continue renal di et. The patient will be given Kayexalate. 4. Volume overload. Etiology is multifactorial secondary to congestive heart failure, nephrotic syn drome. The patient is currently on diuretic therapy. We will monitor closely. 5. Anemia with iron deficiency. Continue IV iron. Continue Epogen. 6. Mineral bone disorder, monitor calcium and phosphatase levels. 7. Diabetes. Continue current insulin regimen. 8. Hypertension. Blood pressure is currently controlled. 9. History of peripheral vascular disease. Dictated By: CARROL PRATT DO NR/NTS Conf#: [id number] DID#: [id number] CC: JEMIMA JEAN BAPTISTE MD; JUNIOR GILL MD;*End*
[2018-07-14] MEDS: CARBAMIDE PEROXIDE 6.5% 15ML OTIC RIGHT EAR SCH ×2 (09:40→20:37)
[2018-07-14] MEDS: ALBUMIN HUMAN 25% 100 ML IV SCH ×2 (10:06→16:52)
--- NOTE | 2018-07-14 12:27 | PN ---
Date/Time of Note Date/Time of Note DATE: 07/14/18 TIME: 12:26 Assessment/Plan VTE Prophylaxis Risk score (from Ns)>0 risk: 3 SCD applied (from Ns): Yes Pharmacological prophylaxis: heparin Lines/Catheters IV Catheter Type (from Nrsg): Saline Lock Urinary Cath still in place: No Assessment/Plan Hospital Course EXAM: Alopecia Appears well Aox3, comfortable RRR CTAB Soft nt nd Mild edema in legs, + JVD 37 yo female with DMII and CKD III who presents with volume overload from renal failure - Diuresis has been held given ABDIFATAH - Renal management per Dr Begum DMII: - Basal/bolus insulin Iron deficiency anemia: - IV ferrlicit Result Diagram: 07/14/18 0431 07/14/18 0431 Results 24hrs Laboratory Tests Test 07/13/18 13:17 07/13/18 17:13 07/13/18 21:39 07/14/18 04:31 Bedside Glucose 120 97 174 White Blood Count 8.5 Red Blood Count 2.81 L Hemoglobin 7.3 L Hematocrit 23.9 L Mean Corpuscular Volume 85.1 Mean Corpuscular 26.0 L Hemoglobin Mean Corpuscular 30.5 L Hemoglobin Concent Red Cell Distribution 16.2 H Width Platelet Count 261 Mean Platelet Volume 10.6 H Immature Granulocytes % 0.700 H Neutrophils % 60.5 Lymphocytes % 26.0 Monocytes % 9.8 Eosinophils % 2.8 Basophils % 0.2 Nucleated Red Blood 0.0 Cells % Immature Granulocytes # 0.060 H Neutrophils # 5.2 Lymphocytes # 2.2 Monocytes # 0.8 Eosinophils # 0.2 Basophils # 0.0 Nucleated Red Blood 0.0 Cells # Sodium Level 134 L Potassium Level 5.4 H Chloride Level 99 Carbon Dioxide Level 24 Anion Gap 11 Blood Urea Nitrogen 71 H Creatinine 4.41 H Est Glomerular Filtrat 11 L Rate mL/min Glucose Level 88 Calcium Level 7.3 L Phosphorus Level 6.6 H Magnesium Level 2.1 Test 07/14/18 07:34 07/14/18 12:24 Bedside Glucose 103 153 Subjective 24 Hr Interval Summary Free Text/Dictation Worsenign renal dysfunction unfortunately Diuretics held Still urinating normally she says Frustrated to still be here Exam/Review of Systems Exam Vitals Vital Signs Date Temp Pulse Resp B/P (MAP) Pulse Ox O2 O2 Flow FiO2 Time Delivery Rate 07/14/18 98.5 85 17 117/57 99 Room Air 07:32 (77) 07/11/18 2.0 20:10 Intake and Output 07/13/18 07/13/18 07/14/18 1515:00 23:00 07:00 IntakeIntake Total 950 ml 240 ml OutputOutput Total 1 ml BalanceBalance 949 ml 240 ml Results Results 24hrs Laboratory Tests Test 07/13/18 13:17 07/13/18 17:13 07/13/18 21:39 07/14/18 04:31 Bedside Glucose 120 97 174 White Blood Count 8.5 Red Blood Count 2.81 L Hemoglobin 7.3 L Hematocrit 23.9 L Mean Corpuscular Volume 85.1 Mean Corpuscular 26.0 L Hemoglobin Mean Corpuscular 30.5 L Hemoglobin Concent Red Cell Distribution 16.2 H Width Platelet Count 261 Mean Platelet Volume 10.6 H Immature Granulocytes % 0.700 H Neutrophils % 60.5 Lymphocytes % 26.0 Monocytes % 9.8 Eosinophils % 2.8 Basophils % 0.2 Nucleated Red Blood 0.0 Cells % Immature Granulocytes # 0.060 H Neutrophils # 5.2 Lymphocytes # 2.2 Monocytes # 0.8 Eosinophils # 0.2 Basophils # 0.0 Nucleated Red Blood 0.0 Cells # Sodium Level 134 L Potassium Level 5.4 H Chloride Level 99 Carbon Dioxide Level 24 Anion Gap 11 Blood Urea Nitrogen 71 H Creatinine 4.41 H Est Glomerular Filtrat 11 L Rate mL/min Glucose Level 88 Calcium Level 7.3 L Phosphorus Level 6.6 H Magnesium Level 2.1 Test 07/14/18 07:34 07/14/18 12:24 Bedside Glucose 103 153 Medications Medication Current Medications Dextrose (D50w Syringe) ONCE PRN IV DECREASED GLUCOSE; Start 07/09/18 at 23:30 IV Flush (NS 3 ml) 3 ml PER PROTOCOL IV ; Start 07/10/18 at 00:00 Ondansetron HCl (Zofran Inj) 4 mg Q6H PRN IV NAUSEA/VOMITING; Start 07/10/18 at 00:00 Nitroglycerin (Nitroglycerin (Sl Tab) 0.4 Mg) 1 tab Q5M PRN SL .CHEST PAIN; Start 07/10/18 at 00:00 Acetaminophen (Tylenol Tab) 650 mg Q6H PRN PO .PAIN 1-3 OR TEMP Last administered on 07/12/18 13:17; Admin Dose 650 MG; Start 07/10/18 at 00:00 Albuterol/ Ipratropium (Duoneb) 3 ml Q2H RESP THERAPY PRN HHN SHORTNESS OF BREATH; Start 07/10/18 at 00:00 Aspirin (Halfprin) 81 mg DAILY PO Last administered on 07/14/18 08:18; Admin Dose 81 MG; Start 07/10/18 at 09:00 Carvedilol (Coreg) 12.5 mg BID PO Last administered on 07/14/18 08:18; Admin Dose 12.5 MG; Start 07/10/18 at 00:00 Folic Acid (Folic Acid) 1 mg DAILY PO Last administered on 07/14/18 08:18; Admi n Dose 1 MG; Start 07/10/18 at 09:00 Gabapentin (Neurontin) 100 mg TID PO Last administered on 07/14/18 08:17; Admin Dose 100 MG; Start 07/10/18 at 09:00 Nifedipine (Procardia Xl) 60 mg DAILY PO Last administered on 07/14/18 08:18; Admin Dose 60 MG; Start 07/10/18 at 09:00 Insulin Aspart (Novolog Insulin Pen) 6 unit AC MEALS SC Last administered on 07/14/18 07:36; Admin Dose 6 UNIT; Start 07/10/18 at 07:00 Atorvastatin Calcium (Lipitor) 10 mg DAILY@21 PO Last administered on 07/13/18 21:40; Admin Dose 10 MG; Start 07/10/18 at 21:00 Insulin Glargine (Lantus) 40 units HS SC Last administered on 07/13/18 21:42; Admin Dose 40 UNITS; Start 07/10/18 at 00:00 Miscellaneous Information 1 ea NOTE XX ; Start 07/10/18 at 01:00 Glucose (Glutose) 15 gm Q15M PRN PO DECREASED GLUCOSE; Start 07/10/18 at 01:00 Glucose (Glutose) 22.5 gm Q15M PRN PO DECREASED GLUCOSE; Start 07/10/18 at 01:00 Dextrose (D50w Syringe) 25 ml Q15M PRN IV DECREASED GLUCOSE; Start 07/10/18 at 01:00 Dextrose (D50w Syringe) 50 ml Q15M PRN IV DECREASED GLUCOSE; Start 07/10/18 at 01:00 Glucagon (Glucagen) 1 mg Q15M PRN IM DECREASED GLUCOSE; Start 07/10/18 at 01:00 Glucose (Glutose) 15 gm Q15M PRN BUCCAL DECREASED GLUCOSE; Start 07/10/18 at 01:00 Acetaminophen/ Hydrocodone Bitart ([place] (5/325)) 1 tab Q4H PRN PO MODERATE PAIN LEVEL 4-6 Last administered on 07/14/18 07:35; Admin Dose 1 TAB; Start 07/11/18 at 11:30 Ferric Sodium Gluconate Complex 125 mg/Sodium Chloride 110 ml @ 110 mls/hr DAILY@1300 IVPB Last administered on 07/13/18 13:24; Admin Dose 110 MLS/HR; Start 07/11/18 at 16:30; Stop 07/15/18 at 13:59 Sevelamer Carbonate (Renvela) 1,600 mg WITH MEALS PO Last administered on 07/13/18 17:11; Admin Dose 1,600 MG; Start 07/12/18 at 12:00 Carbamide Peroxide (Debrox Otic) 3 drop BID RIGHT EAR Last administered on 09:40; Admin Dose 3 DROP; Start 07/12/18 at 21:00 Polyethylene Glycol (Miralax) 17 gm BID PO Last administered on 07/14/18 08:17; Admin Dose 17 GM; Start 07/13/18 at 21:00 Albumin Human 100 ml @ 100 mls/hr Q8H IV Last administered on 07/14/18 10:06; Admin Dose 100 MLS/HR; Start 07/14/18 at 09:30; Stop 07/15/18 at 02:29 JEMIMA JEAN BAPTISTE MD Jul 14, 2018 12:27
[2018-07-14 13:58] VITALS: BP 122/59; PULSE 82; RESP 17
[2018-07-14] MEDS: SOD FERRIC GLUC COMPLX 125 MG in SOD CHLORIDE 0.9% 100 ML IVPB SCH (14:01)
[2018-07-14 19:55] VITALS: BP 93/53; PULSE 87; RESP 18
[2018-07-14] MEDS: ATORVASTATIN 10 MG TAB PO SCH (20:36)
[2018-07-14] MEDS: INSULIN GLARGINE [LANTus] (100 UNITS/ML) SYG SC SCH (20:45)
[2018-07-15] MEDS: ALBUMIN HUMAN 25% 100 ML IV SCH (01:42)
[2018-07-15] MEDS: HYDROCODONE/APAP (5/325) TAB PO PRN ×3 (01:42→16:00)
[2018-07-15 02:05] VITALS: BP 113/63; PULSE 86; RESP 18
[2018-07-15 07:43] VITALS: BP 107/59; PULSE 89; RESP 18
[2018-07-15] MEDS: CARBAMIDE PEROXIDE 6.5% 15ML OTIC RIGHT EAR SCH (07:57)
[2018-07-15] MEDS: FOLIC ACID 1 MG TAB PO SCH (08:10)
[2018-07-15] MEDS: ASPIRIN (EC) 81 MG TAB PO SCH (08:10)
[2018-07-15] MEDS: SEVELAMER CARBONATE 800 MG TABLET PO SCH ×3 (08:10→17:27)
[2018-07-15] MEDS: GABAPENTIN 100 MG CAP PO SCH ×2 (08:10→13:24)
[2018-07-15] MEDS: NIFEdipine (XL) 60 MG TAB PO SCH (08:11)
[2018-07-15] MEDS: POLYETHYLENE GLYCOL 17 GM PACKET PO SCH (08:12)
[2018-07-15] MEDS: INSULIN ASPART [NOVOLOG] 3 ML PEN SC SCH ×3 (08:14→17:32)
[2018-07-15] MEDS ORDERED: AMIT25TA9 PO (12:10)
[2018-07-15] MEDS ORDERED: HYDR-3671 PO (12:10)
[2018-07-15] MEDS ORDERED: FER325 PO (12:10)
[2018-07-15] MEDS ORDERED: CITR473S PO (12:10)
[2018-07-15] MEDS ORDERED: ATOR-2 PO (12:10)
[2018-07-15] MEDS ORDERED: FURO40TA4 PO (12:10)
--- NOTE | 2018-07-15 12:15 | PDOCDIS ---
Discharge Instructions DIAGNOSIS Discharge Diagnosis ABDIFATAH CHF CONDITION 2 [id number] Patient Condition: [id number] Stable FOLLOW UP/APPOINTMENTS Follow-up Plan Shine norberto coty con najera doctor de vito en la semana que JEMIMA Mackenzie MD Jul 15, 2018 12:15
--- NOTE | 2018-07-15 12:26 | CONS ---
Assessment/Plan Assessment/Plan Assessment/Plan (Daily) 1. Nonoliguric acute kidney injury on top of chronic kidney disease stage IV with previous EGFR around 20 mL per minute per patient. Etiology of acute kidney injury was initially felt to be secondary to hemodynamics, possible cardiorenal syndrome, diuretics. The patient now may have entered tubular injury. has been off of diuretic therapy for the past 3 days. s/p albumin on tuesday. renal function slowly improving. Will continue to monitor renal function closely. No overt uremic signs and symptoms. No immediate need for renal replacement therapy. 2. Chronic kidney disease stage IV secondary to diabetes, diabetic nephropathy. The patient is currently in acute kidney injury as stated above. Would continue current treatment plan. Otherwise, continue disease factor modification. Please note I did speak with the patient regarding possibility of dialysis if renal function does not stabilize and/or if patient should develop uremic signs or symptoms. 3. Mild hyperkalemia secondary to acute kidney injury and chronic kidney disease. improved. Continue renal diet. 4. Volume overload. Etiology is multifactorial secondary to congestive heart failure, nephrotic syndrome. s/p diuretic therapy. We will monitor closely. 5. Anemia with iron deficiency. Continue IV iron. Continue Epogen. 6. Mineral bone disorder, monitor calcium and phosphatase levels. 7. Diabetes. Continue current insulin regimen. 8. Hypertension. Blood pressure is currently controlled. 9. History of peripheral vascular disease. Consultation Date/Type/Reason Admit Date/Time Jul 09, 2018 at 23:14 Initial Consult Date Date/Time of Note DATE: 07/15/18 TIME: 12:24 24 HR Interval Summary Free Text/Dictation s/p albumin trial denies shortness of breath urinating without issues d/w rn gen nad cv rrr pulm ctab abd soft, nd, nt +bs ext +edema Exam/Review of Systems Exam Vitals Vital Signs Date Temp Pulse Resp B/P (MAP) Pulse Ox O2 O2 Flow FiO2 Time Delivery Rate 07/15/18 98.4 89 18 107/59 98 Room Air 07:43 (75) 07/11/18 2.0 20:10 Intake and Output 07/14/18 07/14/18 07/15/18 1515:00 23:00 07:00 IntakeIntake Total 560 ml 430 ml 220 ml BalanceBalance 560 ml 430 ml 220 ml Results Result Diagram: 07/15/18 0429 07/15/18 0429 Results 24hrs Laboratory Tests Test 07/14/18 17:39 07/14/18 20:36 07/15/18 04:29 07/15/18 07:55 Bedside Glucose 127 115 78 White Blood Count 7.9 Red Blood Count 2.71 L Hemoglobin 7.1 L Hematocrit 23.4 L Mean Corpuscular Volume 86.3 Mean Corpuscular 26.2 L Hemoglobin Mean Corpuscular 30.3 L Hemoglobin Concent Red Cell Distribution 16.6 H Width Platelet Count 224 Mean Platelet Volume 10.7 H Immature Granulocytes % 0.600 H Neutrophils % 67.5 Lymphocytes % 20.7 Monocytes % 8.3 Eosinophils % 2.5 Basophils % 0.4 Nucleated Red Blood 0.3 H Cells % Immature Granulocytes # 0.050 H Neutrophils # 5.3 Lymphocytes # 1.6 Monocytes # 0.7 Eosinophils # 0.2 Basophils # 0.0 Nucleated Red Blood 0.0 Cells # Sodium Level 136 Potassium Level 5.0 Chloride Level 99 Carbon Dioxide Level 23 Anion Gap 14 H Blood Urea Nitrogen 73 H Creatinine 4.14 H Est Glomerular Filtrat 12 L Rate mL/min Glucose Level 101 Calcium Level 7.6 L Phosphorus Level 6.8 H Magnesium Level 2.3 Medications Medication Current Medications Dextrose (D50w Syringe) ONCE PRN IV DECREASED GLUCOSE; Start 07/09/18 at 23:30 IV Flush (NS 3 ml) 3 ml PER PROTOCOL IV ; Start 07/10/18 at 00:00 Ondansetron HCl (Zofran Inj) 4 mg Q6H PRN IV NAUSEA/VOMITING; Start 07/10/18 at 00:00 Nitroglycerin (Nitroglycerin (Sl Tab) 0.4 Mg) 1 tab Q5M PRN SL .CHEST PAIN; Start 07/10/18 at 00:00 Acetaminophen (Tylenol Tab) 650 mg Q6H PRN PO .PAIN 1-3 OR TEMP Last administered on 07/12/18at 13:17; Admin Dose 650 MG; Start 07/10/18 at 00:00 Albuterol/ Ipratropium (Duoneb) 3 ml Q2H RESP THERAPY PRN HHN SHORTNESS OF BREATH; Start 07/10/18 at 00:00 Aspirin (Halfprin) 81 mg DAILY PO Last administered on 07/15/18at 08:10; Admin Dose 81 MG; Start 07/10/18 at 09:00 Carvedilol (Coreg) 12.5 mg BID PO Last administered on 07/14/18 08:18; Admin Dose 12.5 MG; Start 07/10/18 at 00:00 Folic Acid (Folic Acid) 1 mg DAILY PO Last administered on 07/15/18 08:10; Admin Dose 1 MG; Start 07/10/18 at 09:00 Gabapentin (Neurontin) 100 mg TID PO Last administered on 07/15/18 08:10; Admin Dose 100 MG; Start 07/10/18 at 09:00 Nifedipine (Procardia Xl) 60 mg DAILY PO Last administered on 07/15/18 08:11; Admin Dose 60 MG; Start 07/10/18 at 09:00 Insulin Aspart (Novolog Insulin Pen) 6 unit AC MEALS SC Last administered on 07/15/18 08:14; Admin Dose 6 UNIT; Start 07/10/18 at 07:00 Atorvastatin Calcium (Lipitor) 10 mg DAILY@21 PO Last administered on 07/14/18 20:36; Admin Dose 10 MG; Start 07/10/18 at 21:00 Insulin Glargine (Lantus) 40 units HS SC Last administered on 07/14/18 20:45; Admin Dose 40 UNITS; Start 07/10/18 at 00:00 Miscellaneous Information 1 ea NOTE XX ; Start 07/10/18 at 01:00 Glucose (Glutose) 15 gm Q15M PRN PO DECREASED GLUCOSE; Start 07/10/18 at 01:00 Glucose (Glutose) 22.5 gm Q15M PRN PO DECREASED GLUCOSE; Start 07/10/18 at 01:00 Dextrose (D50w Syringe) 25 ml Q15M PRN IV DECREASED GLUCOSE; Start 07/10/18 at 01:00 Dextrose (D50w Syringe) 50 ml Q15M PRN IV DECREASED GLUCOSE; Start 07/10/18 at 01:00 Glucagon (Glucagen) 1 mg Q15M PRN IM DECREASED GLUCOSE; Start 07/10/18 at 01:00 Glucose (Glutose) 15 gm Q15M PRN BUCCAL DECREASED GLUCOSE; Start 07/10/18 at 01:00 Acetaminophen/ Hydrocodone Bitart ([place] (5/325)) 1 tab Q4H PRN PO MODERATE PAIN LEVEL 4-6 Last administered on 07/15/18 07:56; Admin Dose 1 TAB; Start 07/11/18 at 11:30 Ferric Sodium Gluconate Complex 125 mg/Sodium Chloride 110 ml @ 110 mls/hr DAILY@1300 IVPB Last administered on 07/14/18 14:01; Admin Dose 110 MLS/HR; Start 07/11/18 at 16:30; Stop 07/15/18 at 13:59 Sevelamer Carbonate (Renvela) 1,600 mg WITH MEALS PO Last administered on 07/15/18 08:10; Admin Dose 1,600 MG; Start 07/12/18 at 12:00 Carbamide Peroxide (Debrox Otic) 3 drop BID RIGHT EAR Last administered on 07/15/18 07:57; Admin Dose 3 DROP; Start 07/12/18 at 21:00 Polyethylene Glycol (Miralax) 17 gm BID PO Last administered on 07/15/18 08:12; Admin Dose 17 GM; Start 07/13/18 at 21:00 CAMILLE VERONICA MD Jul 15, 2018 12:26
[2018-07-15] MEDS: SOD FERRIC GLUC COMPLX 125 MG in SOD CHLORIDE 0.9% 100 ML IVPB SCH (13:29)
[2018-07-15 15:14] VITALS: BP 112/57; PULSE 89; RESP 18
--- NOTE | 2018-07-15 16:27 | DS ---
Date/Time of Note Date/Time of Note DATE: 07/15/18 TIME: 16:25 Discharge Summary Admission/Discharge Info Admit Date/Time Jul 09, 2018 at 23:14 Discharge Date/Time Discharge Diagnosis ABDIFATAH CHF Iron deficiency Patient Condition: Stable Hospital Course EXAM: Alopecia Appears well Aox3, comfortable RRR CTAB Soft nt nd Mild edema in legs, + JVD Patient found to be with hypervolemia from renal failure. She was given IV lasix and edema improved, however went into ABDIFATAH. Diuertics were held. Albumin was given and creatinine improved slightly. Etiology of renal failure likely from DM nephropathy. Despite creatinine still being elevated from baseline, she was desperate to be discharged to take care of her children. She was advsied to follow up with her kidney doctor next week. PEDRO inhibitor was held at discharge. She was also give IV ferrlicit in [place] for iron deficiency Home Meds Reported Medications Amitriptyline Hcl* (Amitriptyline Hcl*) 25 Mg Tablet, 25 MG PO QHS, #30 TAB 07/15/18 Hydralazine Hcl* (Hydralazine Hcl*) 25 Mg Tab, 25 MG PO TID, #120 TAB 07/15/18 Ferrous Sulfate* (Ferrous Sulfate*) 325 Mg Tabec, 325 MG PO every 2 days, TAB 07/15/18 Atorvastatin* (Atorvastatin*) 80 Mg Tablet, 80 MG PO QHS, #30 TAB 07/15/18 Citric Acid/Sodium Citrate (Sod Citrate-Citric Acid Soln) 473 Ml Solution, 15 ML PO DAILY 07/15/18 Furosemide* (Furosemide*) 40 Mg Tablet, 40 MG PO BID, TAB 07/15/18 Insulin Lispro (Humalog Kwikpen U-100) 100 Unit/1 Ml Insuln.pen, 6 UNIT SQ BEFORE MEALS, EA 11/19/17 Insulin Glargine,Hum.rec.anlog (Basaglar Kwikpen U-100) 100 Unit/1 Ml Insuln.pen, 40 UNIT SC QHS, EA 11/19/17 Nifedipine* (Afeditab CR*) 60 Mg Tablet.er, 60 MG PO DAILY, #30 TAB.SA 11/19/17 Folic Acid* (Folic Acid*) 1 Mg Tablet, 1 MG PO DAILY, TAB 11/19/17 Aspirin* (Aspirin* EC) 81 Mg Tablet.dr, 81 MG PO DAILY, TAB 11/19/17 Discontinued Reported Medications Gabapentin* (Gabapentin*) 100 Mg Capsule, 100 MG PO TID, #90 CAP 11/19/17 Lisinopril* (Lisinopril*) 40 Mg Tablet, 40 MG PO DAILY, #30 TAB 11/19/17 Carvedilol* (Carvedilol*) 12.5 Mg Tablet, 12.5 MG PO BID, #60 TAB 11/19/17 Glipizide* (Glipizide*) 5 Mg Tablet, 5 MG PO AC BREAKFAST, TAB 11/19/17 Simvastatin* (Zocor*) 20 Mg Tablet, 20 MG PO QHS, #30 TAB 11/19/17 Follow-up Plan Shine norberto coty con najera doctor de rinones en la semana que viene Primary Care Provider [facility] Pending Labs Laboratory Tests Test 07/14/18 17:39 07/14/18 20:36 07/15/18 04:29 07/15/18 07:55 Bedside 127 115 78 Glucose mg/dL (70-220) mg/dL (70-220) mg/dL (70-220) White Blood 7.9 Count 10^3/ul (4.8-1 0.8) Red Blood 2.71 Count 10^6/ul (4.20- 5.40) Hemoglobin 7.1 g/dl (12.0-16. 0) Hematocrit 23.4 % (37.0-47.0) Mean 86.3 Corpuscular fl (82.0-101.0 Volume ) Mean 26.2 Corpuscular pg (29.0-33.0) Hemoglobin Mean 30.3 Corpuscular g/dl (32.0-37. Hemoglobin Conc 0) ent Red Cell 16.6 Distribution % (11.5-14.5) Width Platelet Count 224 10^3/UL (140-4 15) Mean Platelet 10.7 Volume fl (7.4-10.4) Immature 0.600 Granulocytes % % (0.001-0.429 ) Neutrophils % 67.5 % (39.0-77.0) Lymphocytes % 20.7 % (15.0-51.0) Monocytes % 8.3 % (0.0-11.0) Eosinophils % 2.5 % (0.0-7.0) Basophils % 0.4 % (0.0-2.0) Nucleated Red 0.3 Blood Cells % /100WBC (0.0-0 .0) Immature 0.050 Granulocytes # 10^3/ul (0.0-0 .031) Neutrophils # 5.3 10^3/ul (1.6-7 .5) Lymphocytes # 1.6 10^3/ul (0.8-2 .9) Monocytes # 0.7 10^3/ul (0.3-0 .9) Eosinophils # 0.2 10^3/ul (0.0-0 .5) Basophils # 0.0 10^3/ul (0.0-0 .1) Nucleated Red 0.0 Blood Cells # 10^3/ul (0.0-0 .0) Sodium Level 136 mmol/L (135-14 4) Potassium 5.0 Level mmol/L (3.5-5. 1) Chloride Level 99 mmol/L (97-110 ) Carbon Dioxide 23 Level mmol/L (21-31) Anion Gap 14 (5-13) Blood Urea 73 Nitrogen mg/dl (7-20) Creatinine 4.14 mg/dl (0.44-1. 00) Est Glomerular 12 Filtrat mL/min (>60) Rate mL/min Glucose Level 101 mg/dl (70-220) Calcium Level 7.6 mg/dl (8.4-10. 2) Phosphorus 6.8 Level mg/dl (2.5-4.9 ) Magnesium 2.3 Level mg/dl (1.7-2.5 ) Test 07/15/18 13:09 07/15/18 13:19 White Blood 9.3 Count 10^3/ul (4.8-10 .8) Red Blood 3.04 Count 10^6/ul (4.20-5 .40) Hemoglobin 8.0 g/dl (12.0-16.0 ) Hematocrit 26.2 % (37.0-47.0) Mean 86.2 Corpuscular fl (82.0-101.0) Volume Mean 26.3 Corpuscular pg (29.0-33.0) Hemoglobin Mean 30.5 Corpuscular g/dl (32.0-37.0 Hemoglobin Conc ) ent Red Cell 17.4 Distribution % (11.5-14.5) Width Platelet Count 265 10^3/UL (140-41 5) Mean Platelet 10.6 Volume fl (7.4-10.4) Immature 0.600 Granulocytes % % (0.001-0.429) Neutrophils % 70.2 % (39.0-77.0) Lymphocytes % 18.5 % (15.0-51.0) Monocytes % 8.1 % (0.0-11.0) Eosinophils % 2.2 % (0.0-7.0) Basophils % 0.4 % (0.0-2.0) Nucleated Red 0.0 Blood Cells % /100WBC (0.0-0. 0) Immature 0.060 Granulocytes # 10^3/ul (0.0-0. 031) Neutrophils # 6.5 10^3/ul (1.6-7. 5) Lymphocytes # 1.7 10^3/ul (0.8-2. 9) Monocytes # 0.8 10^3/ul (0.3-0. 9) Eosinophils # 0.2 10^3/ul (0.0-0. 5) Basophils # 0.0 10^3/ul (0.0-0. 1) Nucleated Red 0.0 Blood Cells # 10^3/ul (0.0-0. 0) Bedside 123 Glucose mg/dL (70-220) JEMIMA JEAN BAPTISTE MD Jul 15, 2018 16:27
== END 2018-07-15 18:20 | disposition home or self-care (01) | DRG 291 ==
LOC: E/R 21:02 → 6WM 23:14 → 2NE 07-11 01:25
PROVIDERS: ADMIT Internal Medicine; ATTEND Internal Medicine
DX: I13.0 Hypertensive heart and chronic kidney disease with heart failure and stage 1 through stage 4 chronic kidney disease, or unspecified chronic kidney disease (principal); J96.01 Acute respiratory failure with hypoxia; I50.33 Acute on chronic diastolic (congestive) heart failure; N18.4 Chronic kidney disease, stage 4 (severe); N17.9 Acute kidney failure, unspecified; E11.22 Type 2 diabetes mellitus with diabetic chronic kidney disease; E87.5 Hyperkalemia; E78.5 Hyperlipidemia, unspecified; D63.1 Anemia in chronic kidney disease; E11.51 Type 2 diabetes mellitus with diabetic peripheral angiopathy without gangrene
CPT/HCPCS: 36415; 36600; 71045; 76775; 80048; 80053; 80061; 81001; 81003; 82043; 82550; 82553; 82728; 82803; 82962; 83036; 83540; 83605; 83735; 83880; 84100; 84155; 84300; 84484; 85025; 93005; 93306; 94660; 96374; J1815; J1940; J2270; J2916; P9047; Q4081